=== PATIENT | female | born 1980 | race Caucasian/White ===

== ENCOUNTER → 2017-12-02 00:12 | Outpatient (CLI) | payer MEDICAID, SELFPAY ==
--- NOTE | 2017-12-02 09:41 | DI.REPORT_ITS ---
SYMPTOM/DIAGNOSIS: PELVIC AND BACK PAIN WITH MENSES, DYSMENORRHEA N94.6 PELVIC ULTRASOUND: Transabdominal and transvaginal examination was performed. The uterus measures 9.2 cm long x 3.8 cm AP x 4.7 cm transverse. The endometrial stripe is within normal limits at 0.7 cm. Small Nabothian cysts are present in the cervix. The right ovary measures 1.9 x 1.3 x 1.6 cm. There is normal blood flow. No evidence of torsion is seen. The left ovary measures 2.6 x 1.4 x 2.0 cm. There is a 1.8 cm simple cyst. There is normal blood flow to the left ovary. No evidence of torsion is present. No free pelvic fluid or hydronephrosis is identified. IMPRESSION: Normal pelvic ultrasound.
== END ==
PROVIDERS: PCP Family Medicine; Visit Provider Obstetrics & Gynecology Gynecology
DX: N94.6 Dysmenorrhea, unspecified (principal); R10.2 Pelvic and perineal pain; M54.5 Low back pain; N88.8 Other specified noninflammatory disorders of cervix uteri; N83.291 Other ovarian cyst, right side
CPT/HCPCS: 76830; 76856

== ENCOUNTER → 2017-12-07 01:00 | Outpatient (CLI) | payer MEDICAID, SELFPAY ==
--- NOTE | 2017-12-07 09:46 | DI.REPORT_ITS ---
SYMPTOM/DIAGNOSIS: DYSPHAGIA, R13.13 BARIUM SWALLOW: Fluoroscopy Time: 16 seconds Preliminary images of the chest and a soft tissue lateral of the neck are unremarkable. The patient swallowed barium without difficulty. The artur and hypopharynx appear intact. There is nothing to suggest a stricture or mass. The esophagus appears intact throughout. SUMMARY: Normal barium swallow.
[2017-12-07] MEDS: Barium Sulfate 60% W/V 355 ML BTL PO (09:51)
== END ==
PROVIDERS: PCP Family Medicine; Visit Provider Family Medicine
DX: R13.13 Dysphagia, pharyngeal phase (principal)
CPT/HCPCS: 74220; J3490

== ENCOUNTER 2018-01-10 10:45 | Outpatient (REF) | payer MEDICAID, SELFPAY ==
--- NOTE | 2018-01-10 10:00 | VUL_PTH ---
PATIENT: Katie Calvert LOC: [facility] U#:[id number] AGE/SX: 37/F ROOM: RE01/10/[address]: Jaclyn Potter : 1980 BED: DIS: 01/10/2018 SPEC #: [id number] RECD: 01/10/18 12:53 STATUS: JOAN REQ #: [id number] RICKY: 01/10/18 10:[address]: Jaclyn Potter DEPT: Surgical Specimen RECD BY: Pooja Esteban ENTERED: 01/10/18 12:54 SP TYPE: VUL OTHR DR: Timur Napoles MD Tissues: 1 - VULVA BIOPSY 2 - LABIA BX Procedures: GROSS AND MICRO LEVEL 4 Comments: [id number]
== END 2018-01-10 11:05 ==
LOC: LBN 10:45
PROVIDERS: PCP Family Medicine; Visit Provider Obstetrics & Gynecology Gynecology
DX: N90.89 Other specified noninflammatory disorders of vulva and perineum (principal)
CPT/HCPCS: 88305

== ENCOUNTER 2018-01-31 00:43 | Outpatient (CLI) | payer MEDICAID, SELFPAY ==
[2018-01-31] MEDS: Barium Sulfate 60% W/V 355 ML BTL PO (09:22)
[2018-01-31] MEDS: Barium Sulfate 700 MG TAB PO (09:23)
--- NOTE | 2018-01-31 09:23 | DI.RAD_ITS ---
SYMPTOM/DIAGNOSIS: DYSPHAGIA, R13.10, SMOKER, F17.200, GLOBUS SENSATION, F45.8 , HOARSENESS OF VOICE, R49.0 MODIFIED BARIUM SWALLOW: Fluoroscopy Time: 1 min 2 seconds Modified barium swallow was performed in conjunction with speech pathology. No gross swallowing abnormality identified. Esophageal mucosa and caliber appear within normal limits. 12 mm. barium tablet passed through the esophagus into stomach.
== END 2018-01-31 01:03 ==
PROVIDERS: PCP Family Medicine; Visit Provider Otolaryngology Otolaryngology/Facial Plastic Surgery
DX: R13.10 Dysphagia, unspecified (principal); F17.200 Nicotine dependence, unspecified, uncomplicated; F45.8 Other somatoform disorders; R49.0 Dysphonia
CPT/HCPCS: 74220; J3490

== ENCOUNTER 2018-01-31 02:35 | Outpatient (CLI) | payer MEDICAID, SELFPAY | END 2018-01-31 02:55 | PROVIDERS: PCP Family Medicine | DX: R13.12 Dysphagia, oropharyngeal phase (principal) | CPT/HCPCS: 92611 ==

== ENCOUNTER 2018-03-01 02:02 | Outpatient (CLI) | payer MEDICAID, SELFPAY ==
[2018-03-01 11:03] LABS: Anion Gap 9.9 mmol/L (3-11); BUN 13 mg/dL (7-18); CO2 26.1 mmol/L (21.0-32.0); CREATININE 0.88 mg/dL (0.55-1.02); Chloride 103 mmol/L (98-107); Glucose 96 mg/dL (70-100); Potassium 4.6 mmol/L (3.5-5.1); Sodium 139 mmol/L (136-145)
== END 2018-03-01 02:22 ==
PROVIDERS: PCP Family Medicine; Visit Provider Family Medicine
DX: E87.6 Hypokalemia (principal)
CPT/HCPCS: 36415; 80048

== ENCOUNTER 2018-10-07 16:34 | Emergency (ER) | payer MEDICAID, SELFPAY ==
[2018-10-07 16:51] VITALS: BP 146/84; PULSE 67; RESP 14; TEMP 37.2; O2SAT 95
--- NOTE | 2018-10-07 17:24 | W.ED.GENAD ---
Discharge Plan Disposition Patient Disposition: HOME Condition: Good Discharge Details Chief Complaint: Cellulitis Clinical Impression: Abscess of buttock Primary Care Provider: Timur Napoles ED Provider: Jesus Valdivia Home Meds and New Rx's Prescriptions: Continued acetaminophen [Tylenol Extra Strength] 500 mg tablet 500 mg PO Q6H PRNRF: 0 medroxyprogesterone [Depo-Provera] 150 mg/mL suspension 150 mg IM [id number] Qty: 1 RF: 3 mirtazapine 30 mg tablet 30 mg PO DAILY Qty: 30 RF: 2 albuterol sulfate [ProAir HFA] 8.5 GM HFA aerosol inhaler 2 puff Inhalation Q6H Qty: 1 RF: 5 albuterol sulfate 1.25 MG/3 ML solution for nebulization 1.25 mg Inhalation Q6H PRN Qty: 30 RF: 4 Compact Compressor Nebulizer 1 EACH kit 1 ea Miscellaneous Q6H PRN Qty: 1 RF: 0 metronidazole 45 GM gel Topical BID Qty: 45 RF: 4 Flovent Diskus 50 MCG blister with device 2 puff Inhalation BID Qty: 1 RF: 4 ketorolac 5 ML drops 1 drp Ophthalmic TID Qty: 5 RF: 2 clonazepam 0.5 mg tablet 0.5 mg PO As Directed Qty: 120 RF: 0 omeprazole 40 mg capsule,delayed release(DR/EC) 40 mg PO DAILY Qty: 90 RF: 3 cyclobenzaprine 10 mg tablet 10 mg PO HS PRN (Reason: muscle spasm) Qty: 30 RF: 1 Discharge Instructions Instructions: Abscess (ED) Additional Instructions: Return to the emergency department if you develop redness, fever, chills, worsening pain or discharge Discharge Data Discharge Date/Time-TO BE ENTERED AT DEPARTURE: 10/07/18 18:48 Discharge Physician: Jesus Valdivia Medical Decision Making Skin cleansed with Betadine, 2 cc 1% lidocaine injected to right buttocks lesion. 11 blade used to make small incision cruciate shaped. Small amount of purulent material expelled. Site irrigated and dressing applied. ED return instructions reviewed. Due to absence of overlying erythema or constitutional symptoms we will hold off on antibiotics. Small amount of material expelled however the site was quite small and I do not suspect there is additional purulence retained. HPI Patient presents for evaluation of abscess to right buttocks. This is been present for 3 days. She attempted warm soaks without success. She has history of similar abscesses requiring I&D. Denies fever, chills, lethargy. No additional complaints General Date/Time Provider Initiated Documentation: 10/07/18 17:24. Related Data Home Medications Medication Instructions Recorded Confirmed albuterol sulfate [ProAir HFA] 2 puff INHALATION Q6H #1 inhaler 12/13/14 10/07/18 Compact Compressor Nebulizer #1 kit 04/17/15 08/29/18 albuterol sulfate 1.25 mg INHALATION Q6H PRN #30 vial 04/17/15 10/07/18 metronidazole 0 TOPICAL BID #45 g 04/18/15 08/29/18 Flovent Diskus 2 puff INHALATION BID #1 disk 08/29/17 10/07/18 ketorolac 1 drp OPHTHALMIC TID #5 ml 12/20/17 08/29/18 mirtazapine 30 mg tablet 30 mg PO DAILY #30 tab 01/24/18 10/07/18 clonazepam 0.5 mg tablet 0.5 mg PO As Directed #120 tab-cap 01/26/18 10/07/18 omeprazole 40 mg capsule,delayed 40 mg PO DAILY #90 tab-cap 07/28/18 10/07/18 release acetaminophen 500 mg tablet 500 mg PO Q6H PRN 08/29/18 10/07/18 medroxyprogesterone 150 mg/mL 150 mg IM [id number] #1 ml 08/29/18 10/07/18 intramuscular suspension cyclobenzaprine 10 mg tablet 10 mg PO HS PRN #30 tab-cap 09/01/18 10/07/18 Previous Rx's Medication Instructions Recorded Flovent Diskus 2 puff INHALATION BID #1 disk 08/29/17 ketorolac 1 drp OPHTHALMIC TID #5 ml 12/20/17 mirtazapine 30 mg tablet 30 mg PO DAILY #30 tab 01/24/18 clonazepam 0.5 mg tablet 0.5 mg PO As Directed #120 tab-cap 01/26/18 omeprazole 40 mg capsule,delayed 40 mg PO DAILY #90 tab-cap 07/28/18 release medroxyprogesterone 150 mg/mL 150 mg IM [id number] #1 ml 08/29/18 intramuscular suspension cyclobenzaprine 10 mg tablet 10 mg PO HS PRN #30 tab-cap 09/01/18 Allergies Allergy/AdvReac Type Severity Reaction Status Date / Time shellfish derived Allergy Unknown Unverified 10/07/18 16:54 adhesive Allergy Unverified 10/07/18 16:54 divalproex sodium Allergy Skin Rash Unverified 10/07/18 16:54 [From Depakote] topiramate Allergy Unverified 10/07/18 16:54 varenicline tartrate Allergy Unverified 10/07/18 16:54 [From Chantix] venlafaxine AdvReac Intermediate Diarrhea Unverified 10/07/18 16:54 and increased headaches oxycodone AdvReac Mild nausea Unverified 10/07/18 16:54 General Stated Complaint: Cellulitis RED: 3 Review of Systems Constitutional Denies chills, Denies fatigue, Denies fever(s) and Denies lethargy Eyes Denies loss of vision ENT Denies nasal congestion and Denies sore throat Cardiovascular Denies chest pain and Denies dyspnea Respiratory Denies cough and Denies dyspnea Gastrointestinal Denies abdominal pain, Denies nausea and Denies vomiting Musculoskeletal Denies back pain, Denies muscle weakness and Denies numbness Integumentary/Breasts Denies rash Neurologic Denies focal weakness, Denies loss of vision and Denies numbness Endocrine Denies fatigue Hematologic/Lymphatic Denies easy bruising PFSH Medical History Anxiety Bipolar disorder Disorder of stomach Fibromyalgia Genital herpes Headache Rosacea Tobacco use Surgical History Cervical Conization/LEEP Cholecystectomy Colonoscopy - MAC (01/12/13) EGD - MAC (01/12/13) Ligation of fallopian tube Family History Mother Diabetes Essential hypertension Depression Heart disease Asthma Grandmother Neoplasm aunt Diabetes Heart disease uncle Diabetes Brother Neoplasm Sister No problems noted. Sister DJD (degenerative joint disease) Asthma Sister No problems noted. Sister No problems noted. Brother Neoplasm Grandfather Heart disease Grandfather Leukemia Grandmother Diabetes Neoplasm Son DJD (degenerative joint disease) Daughter Depression Asthma FAMILY HISTORY Dmfdo-[id number] deficiency Liver disease Diabetes Heart disease Neoplasm DJD (degenerative joint disease) Uterus problem Asthma Father Epilepsy Social History Smoking/Tobacco Use Status: Current every day Alcohol Intake: never Drug use: Occasionally Substance use type: marijuana and other Details: anxiety and insomnia Household members: spouse and other Details: spouse Brandan Number of Children: 2 Pets and animals: Yes (3 dogs) What is your relationship status?: Panel score (0-1 are the most socially isolated patients): 1 What type of physical activity do you participate in: walking Duration: 15-30 minutes/day Frequency: 3-4 times per week Seatbelt use: always Do you feel safe at home: Yes Do you feel safe in your relationship?: Yes Female Reproductive History Menstrual control method: permanent sterilization History History 5 Para Hx # Term Pregnancies 2 Multiple births Hx # Pregnancies Ectopic pregnancies AB induced Hx Number of Living Children AB spontaneous Exam Const General: cooperative and comfortable HENMT Mouth: moist mucous membranes Eyes Conjunctivae: conjunctivae normal Sclera: sclerae normal Neck Neck: trachea midline Resp Effort & Inspection: normal respiratory effort and able to speak in complete sentences Cardio Rhythm: regular rhythm Skin General skin exam: no rashes or lesions noted Other: 3 cm area of tenderness, mildly fluctuant. No overlying erythema. The site is localized to right buttocks Neuro General: alert, awake, tone normal and moves all extremities Psych Appearance: grossly normal Mental Status: mental status grossly normal Course Vital Signs Temperature 37.2 C 10/07/18 16:51 Pulse 67 10/07/18 16:51 Respiratory Rate 14 10/07/18 16:51 Blood Pressure 146/84 H 10/07/18 16:51 Pulse Oximetry 95 10/07/18 16:51 Temperature 37.2 C 10/07/18 16:51 Temperature Source Temporal Artery Scan 10/07/18 16:51 Pulse 67 10/07/18 16:51 Respiratory Rate 14 10/07/18 16:51 Respiratory Effort Non-Labored 10/07/18 16:53 Blood Pressure 146/84 H 10/07/18 16:51 Blood Pressure Position Sitting 10/07/18 16:51 Pulse Oximetry 95 10/07/18 16:51 Oxygen Delivery Method Room Air 10/07/18 16:51 Oxygen Flow Rate 0 10/07/18 16:51 Pain Level 6 10/07/18 16:51
--- NOTE | 2018-10-07 23:32 | ED.GENADUL_ITS ---
Discharge Plan Disposition Patient Disposition: HOME Condition: Good Discharge Details Chief Complaint: Cellulitis Clinical Impression: Abscess of buttock Primary Care Provider: Timur Napoles ED Provider: Jesus Valdivia Home Meds and New Rx's Prescriptions: Continued acetaminophen [Tylenol Extra Strength] 500 mg tablet 500 mg PO Q6H PRNRF: 0 medroxyprogesterone [Depo-Provera] 150 mg/mL suspension 150 mg IM [id number] Qty: 1 RF: 3 mirtazapine 30 mg tablet 30 mg PO DAILY Qty: 30 RF: 2 albuterol sulfate [ProAir HFA] 8.5 GM HFA aerosol inhaler 2 puff Inhalation Q6H Qty: 1 RF: 5 albuterol sulfate 1.25 MG/3 ML solution for nebulization 1.25 mg Inhalation Q6H PRN Qty: 30 RF: 4 Compact Compressor Nebulizer 1 EACH kit 1 ea Miscellaneous Q6H PRN Qty: 1 RF: 0 metronidazole 45 GM gel Topical BID Qty: 45 RF: 4 Flovent Diskus 50 MCG blister with device 2 puff Inhalation BID Qty: 1 RF: 4 ketorolac 5 ML drops 1 drp Ophthalmic TID Qty: 5 RF: 2 clonazepam 0.5 mg tablet 0.5 mg PO As Directed Qty: 120 RF: 0 omeprazole 40 mg capsule,delayed release(DR/EC) 40 mg PO DAILY Qty: 90 RF: 3 cyclobenzaprine 10 mg tablet 10 mg PO HS PRN (Reason: muscle spasm) Qty: 30 RF: 1 Discharge Instructions Instructions: Abscess (ED) Additional Instructions: Return to the emergency department if you develop redness, fever, chills, wor sening pain or discharge Discharge Data Discharge Date/Time-TO BE ENTERED AT DEPARTURE: 10/07/18 18:48 Discharge Physician: Jesus Valdivia Medical Decision Making Skin cleansed with Betadine, 2 cc 1% lidocaine injected to right buttocks lesion. 11 blade used to make small incision cruciate shaped. Small amount of purulent material expelled. Site irrigated and dressing applied. ED return instructions reviewed. Due to absence of overlying erythema or constitutional symptoms we will hold off on antibiotics. Small amount of material expelled however the site was quite small and I do not suspect there is additional purulence retained. HPI Patient presents for evaluation of abscess to right buttocks. This is been present for 3 days. She attempted warm soaks without success. She has history of similar abscesses requiring I&D. Denies fever, chills, lethargy. No additional complaints General Date/Time Provider Initiated Documentation: 10/07/18 17:24 . Related Data Home Medications Medication Instructions Recorded Confirmed albuterol sulfate [ProAir HFA] 2 puff INHALATION Q6H #1 inhaler 12/13/14 10/07/18 Compact Compressor Nebulizer #1 kit 04/17/15 08/29/18 albuterol sulfate 1.25 mg INHALATION Q6H PRN #30 vial 04/17/15 10/07/18 metronidazole 0 TOPICAL BID #45 g 04/18/15 08/29/18 Flovent Diskus 2 puff INHALATION BID #1 disk 08/29/17 10/07/18 ketorolac 1 drp OPHTHALMIC TID #5 ml 12/20/17 08/29/18 mirtazapine 30 mg tablet 30 mg PO DAILY #30 tab 01/24/18 10/07/18 clonazepam 0.5 mg tablet 0.5 mg PO As Directed #120 tab-cap 01/26/18 10/07/18 omeprazole 40 mg capsule,delayed 40 mg PO DAILY #90 tab-cap 07/28/18 10/07/18 release acetaminophen 500 mg tablet 500 mg PO Q6H PRN 08/29/18 10/07/18 medroxyprogesterone 150 mg/mL 150 mg IM [id number] #1 ml 08/29/18 10/07/18 intramuscular suspension cyclobenzaprine 10 mg tablet 10 mg PO HS PRN #30 tab-cap 09/01/18 10/07/18 Previous Rx's Medication Instructions Recorded Flovent Diskus 2 puff INHALATION BID #1 disk 08/29/17 ketorolac 1 drp OPHTHALMIC TID #5 ml 12/20/17 mirtazapine 30 mg tablet 30 mg PO DAILY #30 tab 01/24/18 clonazepam 0.5 mg tablet 0.5 mg PO As Directed #120 tab-cap 01/26/18 omeprazole 40 mg capsule,delayed 40 mg PO DAILY #90 tab-cap 07/28/18 release medroxyprogesterone 150 mg/mL 150 mg IM [id number] #1 ml 08/29/18 intramuscular suspension cyclobenzaprine 10 mg tablet 10 mg PO HS PRN #30 tab-cap 09/01/18 Allergies Allergy/AdvReac Type Severity Reaction Status Date / Time shellfish derived Allergy Unknown Unverified 10/07/18 16:54 adhesive Allergy Unverified 10/07/18 16:54 divalproex sodium Allergy Skin Rash Unverified 10/07/18 16:54 [From Depakote] topiramate Allergy Unverified 10/07/18 16:54 varenicline tartrate Allergy Unverified 10/07/18 16:54 [From Chantix] venlafaxine AdvReac Intermediate Diarrhea Unverified 10/07/18 16:54 and increased headaches oxycodone AdvReac Mild nausea Unverified 10/07/18 16:54 General Stated Complaint: Cellulitis RED: 3 Review of Systems Constitutional Denies chills, Denies fatigue, Denies fever(s) and Denies lethargy Eyes Denies loss of vision ENT Denies nasal congestion and Denies sore throat Cardiovascular Denies chest pain and Denies dyspnea Respiratory Denies cough and Denies dyspnea Gastrointestinal Denies abdominal pain, Denies nausea and Denies vomiting Musculoskeletal Denies back pain, Denies muscle weakness and Denies numbness Integumentary/Breasts Denies rash Neurologic Denies focal weakness, Denies loss of vision and Denies numbness Endocrine Denies fatigue Hematologic/Lymphatic Denies easy bruising [facility] Medical History Anxiety Bipolar disorder Disorder of stomach Fibromyalgia Genital herpes Headache Rosacea Tobacco use Surgical History Cervical Conization/LEEP Cholecystectomy Colonoscopy - MAC (01/12/13) EGD - MAC (01/12/13) Ligation of fallopian tube Family History Mother Diabetes Essential hypertension Depression Heart disease Asthma Grandmother Neoplasm aunt Diabetes Heart disease uncle Diabetes Brother Neoplasm Sister No problems noted. Sister DJD (degenerative joint disease) Asthma Sister No problems noted. Sister No problems noted. Brother Neoplasm Grandfather Heart disease Grandfather Leukemia Grandmother Diabetes Neoplasm Son DJD (degenerative joint disease) Daughter Depression Asthma FAMILY HISTORY Cizib-8-abykhhkwffp deficiency Liver disease Diabetes Heart disease Neoplasm DJD (degenerative joint disease) Uterus problem Asthma Father Epilepsy Social History Smoking/Tobacco Use Status: Current every day Alcohol Intake: never Drug use: Occasionally Substance use type: marijuana and other Details: anxiety and insomnia Household members: spouse and other Details: spouse Brandan Number of Children: 2 Pets and animals: Yes (3 dogs) What is your relationship status?: Panel score (0-1 are the most socially isolated patients): 1 What type of physical activity do you participate in: walking Duration: 15-30 minutes/day Frequency: 3-4 times per week Seatbelt use: always Do you feel safe at home: Yes Do you feel safe in your relationship?: Yes Female Reproductive History Menstrual control method: permanent sterilization History History 5 Para Hx # Term Pregnancies 2 Multiple births Hx # Pregnancies Ectopic pregnancies AB induced Hx Number of Living Children AB spontaneous Exam Const General: cooperative and comfortable HENMT Mouth: moist mucous membranes Eyes Conjunctivae: conjunctivae normal Sclera: sclerae normal Neck Neck: trachea midline Resp Effort & Inspection: normal respiratory effort and able to speak in complete sentences Cardio Rhythm: regular rhythm Skin General skin exam: no rashes or lesions noted Other: 3 cm area of tenderness, mildly fluctuant. No overlying erythema. The site is localized to right buttocks Neuro General: alert, awake, tone normal and moves all extremities Psych Appearance: grossly normal Mental Status: mental status grossly normal Course Vital Signs Temperature 37.2 C 10/07/18 16:51 Pulse 67 10/07/18 16:51 Respiratory Rate 14 10/07/18 16:51 Blood Pressure 146/84 H 10/07/18 16:51 Pulse Oximetry 95 10/07/18 16:51 Temperature 37.2 C 10/07/18 16:51 Temperature Source Temporal Artery Scan 10/07/18 16:51 Pulse 67 10/07/18 16:51 Respiratory Rate 14 10/07/18 16:51 Respiratory Effort Non-Labored 10/07/18 16:53 Blood Pressure 146/84 H 10/07/18 16:51 Blood Pressure Position Sitting 10/07/18 16:51 Pulse Oximetry 95 10/07/18 16:51 Oxygen Delivery Method Room Air 10/07/18 16:51 Oxygen Flow Rate 0 10/07/18 16:51 Pain Level 6 10/07/18 16:51
== END 2018-10-07 18:48 | disposition home or self-care (01) ==
PROVIDERS: Emergency Provider Physician Assistant Medical; PCP Family Medicine
DX: L02.31 Cutaneous abscess of buttock (principal)
CPT/HCPCS: 10060

== ENCOUNTER 2018-12-13 09:12 | Emergency (ER) | payer MEDICAID, SELFPAY ==
--- NOTE | 2018-12-13 09:14 | ED.GENADUL_ITS ---
Discharge Plan Disposition Patient Disposition: HOME Condition: Improving Discharge Details Chief Complaint: Orthopedic Clinical Impression: Leg pain, right, Abscess of groin Primary Care Provider: Timur Napoles ED Provider: Unique Berry Home Meds and New Rx's Prescriptions: Continued acetaminophen [Tylenol Extra Strength] 500 mg tablet 500 mg PO Q6H PRNRF: 0 medroxyprogesterone [Depo-Provera] 150 mg/mL suspension 150 mg IM [id number] Qty: 1 RF: 3 mirtazapine 30 mg tablet 30 mg PO DAILY Qty: 30 RF: 2 albuterol sulfate [ProAir HFA] 8.5 GM HFA aerosol inhaler 2 puff Inhalation Q6H Qty: 1 RF: 5 albuterol sulfate 1.25 MG/3 ML solution for nebulization 1.25 mg Inhalation Q6H PRN Qty: 30 RF: 4 (DME) Compact Compressor Nebulizer 1 EACH kit 1 ea Miscellaneous Q6H PRN Qty: 1 RF: 0 metronidazole 45 GM gel 0 Topical BID Qty: 45 RF: 4 Flovent Diskus 50 MCG blister with device 2 puff Inhalation BID Qty: 1 RF: 4 ketorolac 5 ML drops 1 drp Ophthalmic TID Qty: 5 RF: 2 clonazepam 0.5 mg tablet 0.5 mg PO As Directed Qty: 120 RF: 0 omeprazole 40 mg capsule,delayed release(DR/EC) 40 mg PO DAILY Qty: 90 RF: 3 cyclobenzaprine 10 mg tablet 10 mg PO HS PRN (Reason: muscle spasm) Qty: 30 RF: 1 Discharge Instructions Instructions: Abscess (ED), Leg Pain (ED) Additional Instructions: Encourage hydration. Stop smoking. Keep area of drainage clean, dry, covered. Tylenol and/or Motrin as needed for discomfort. Elevate your right leg. Use the antimicrobial soap as discussed. continue to monitor area of abscess drainage, if it develop redness/warmth, fevers/chills or other new/worsening symptoms please seek care ugently once again. You have a follow up appointment with Dr. Gray at 1PM on December 20 Referrals: Timur Napoles MD [Primary Care Provider] - 12/20/18 1:00 pm Discharge Data Discharge Date/Time-TO BE ENTERED AT DEPARTURE: 12/13/18 12:31 Medical Decision Making Patient presents today with multitude of complaints. Primary complaint today is abscess on the left side of her groin. Also concerned with persistent right lo wer extremity pain and concern for an old wound between the fourth and fifth digits of the right foot. Patient has history of depression, fibromyalgia, insomnia, GERD, Crohn's, asthma, is an active smoker, dysphasia. On exam, patient is resting comfortably. She is ambulating with antalgic gait, favoring the right side. She has right calf pain, no palpable cord, full ROM. Patient has pain generalized with palpation anywhere, she attributes to fibromyalgia. No erythema or warmth. The area of puncture from her foot appears to have healed well with no erythema, warmth, drainage. There is a small area of healed over skin that appears consistent with her wound from a few weeks ago betwen the 4&5 digits, right foot 2mm in diameter. Patient is a smoker, is on depo shot, concerned for possible DVT given risk factors. Will obtain DVT US. Ultrasound reviewed by radiologist with no evidence of DVT. Discussed these findings with the patient. Advised likely musculoskeletal. She did not have any known trauma. Advised also could be associated with her fibromyalgia. Plan for drainage of her small abscess, at this point, no evidence of cellulitis. Evaluated the 1cm area with US, pocket of fluid is noted, does not appear to track. Appears isolated to palpable area in the left groin please see procedure note. Patient tolerated drainage of the abscess well. We discussed care associated with this. I also encouraged to begin using antimicrobial soap. She does not have a bathtub. Encourage close follow-up with primary care. Advised to discuss her chronic pain further with them at that time. We discussed lifestyle modifications that are likely leading to a multitude of her complaints. I encouraged that she stops smoking, makes dietary changes and begins exercising. We discussed this at length. We did discuss the risks associated with this. We discussed care associated with the drained abscess. All of her questions and concerns were addressed and she is in agreement with this plan. HPI General Mode of arrival: ambulatory . Date/Time Provider Initiated Documentation: 12/13/18 09:14 . Limitations to Documentation: no limitations . Information obtained by: patient, family (accompanied by significant other) and RN notes reviewed . HPI Narrative: Patient is a 38-year-old female presented with multitude of complaints. With concern today is a boil on the left groin. She is also here endorsing 1 month of right leg pain as well as pain between the fourth and fifth toe on the right foot. She reports she stepped on something approximately 1 month ago and since then has been having some discomfort in this area. Patient denies history of diabetes, states she has been told she is prediabetic. 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 Patient does have history of depression, fibromyalgia, insomnia, GERD, Crohn's, asthma, cervicalgia, globus sensation, dysphagia, dysmenorrhea, rosacea. Patient has not been to see her primary care regarding this 1 month of leg discomfort. States that the boil began a few days ago and has progressed with size. She denies fevers or chills. Denies any recent travel. She was seen here 2 months at which time an abscess on her buttock was drained, patient was treated with abx for surrounding cellulitis Related Data Home Medications Medication Instructions Recorded Confirmed albuterol sulfate [ProAir HFA] 2 puff INHALATION Q6H #1 inhaler 12/13/14 11/21/18 Compact Compressor Nebulizer #1 kit 04/17/15 08/29/18 albuterol sulfate 1.25 mg INHALATION Q6H PRN #30 vial 04/17/15 11/21/18 metronidazole 0 TOPICAL BID #45 g 04/18/15 11/21/18 Flovent Diskus 2 puff INHALATION BID #1 disk 08/29/17 11/21/18 ketorolac 1 drp OPHTHALMIC TID #5 ml 12/20/17 11/21/18 mirtazapine 30 mg tablet 30 mg PO DAILY #30 tab 01/24/18 10/07/18 clonazepam 0.5 mg tablet 0.5 mg PO As Directed #120 tab-cap 01/26/18 11/21/18 omeprazole 40 mg capsule,delayed 40 mg PO DAILY #90 tab-cap 07/28/18 11/21/18 release acetaminophen 500 mg tablet 500 mg PO Q6H PRN 08/29/18 11/21/18 medroxyprogesterone 150 mg/mL 150 mg IM [id number] #1 ml 08/29/18 10/07/18 intramuscular suspension cyclobenzaprine 10 mg tablet 10 mg PO HS PRN #30 tab-cap 12/07/18 Previous Rx's Medication Instructions Recorded Flovent Diskus 2 puff INHALATION BID #1 disk 08/29/17 ketorolac 1 drp OPHTHALMIC TID #5 ml 12/20/17 mirtazapine 30 mg tablet 30 mg PO DAILY #30 tab 01/24/18 clonazepam 0.5 mg tablet 0.5 mg PO As Directed #120 tab-cap 01/26/18 omeprazole 40 mg capsule,delayed 40 mg PO DAILY #90 tab-cap 07/28/18 release medroxyprogesterone 150 mg/mL 150 mg IM [id number] #1 ml 08/29/18 intramuscular suspension cyclobenzaprine 10 mg tablet 10 mg PO HS PRN #30 tab-cap 12/07/18 Allergies Allergy/AdvReac Type Severity Reaction Status Date / Time shellfish derived Allergy Unknown Unverified 11/21/18 14:08 adhesive Allergy Unverified 11/21/18 14:08 divalproex sodium Allergy Skin Rash Unverified 11/21/18 14:08 [From Depakote] topiramate Allergy Unverified 11/21/18 14:08 varenicline tartrate Allergy Unverified 11/21/18 14:08 [From Chantix] venlafaxine AdvReac Intermediate Diarrhea Unverified 11/21/18 14:08 and increased headaches oxycodone AdvReac Mild nausea Unverified 11/21/18 14:08 General RED: 3 Review of Systems Constitutional Reports as per HPI, Denies chills, Reports fatigue, Denies fever(s), Denies headache(s) and Denies weakness ENT Denies headache(s) Cardiovascular Reports as per HPI Respiratory Reports as per HPI, Reports cough (reports this is chronic, associates with smoking), Denies pain on inspiration and Denies pain with cough Musculoskeletal Reports as per HPI, Denies back pain, Reports myalgias, Denies arthralgias, Reports radiating pain into limb (from knee inferiorly into RLE) and Denies tingling Integumentary/Breasts Reports as per HPI, Reports new lesions (has abscess to right groin, first noted 1 week ago) and Reports wounds (reports puncture wound to right foot one month ago) Neurologic Reports as per HPI, Denies headache(s), Denies tingling, Denies paresthesias and Denies weakness Endocrine Reports fatigue PFSH Medical History Anxiety Bipolar disorder Disorder of stomach Fibromyalgia Genital herpes Headache Rosacea Tobacco use Surgical History Cervical Conization/LEEP Cholecystectomy Colonoscopy - MAC (01/12/13) EGD - MAC (01/12/13) Ligation of fallopian tube Family History Mother Diabetes Essential hypertension Depression Heart disease Asthma Grandmother Neoplasm aunt Diabetes Heart disease uncle Diabetes Brother Neoplasm Sister No problems noted. Sister DJD (degenerative joint disease) Asthma Sister No problems noted. Sister No problems noted. Brother Neoplasm Grandfather Heart disease Grandfather Leukemia Grandmother Diabetes Neoplasm Son DJD (degenerative joint disease) Daughter Depression Asthma FAMILY HISTORY [id number] deficiency Liver disease Diabetes Heart disease Neoplasm DJD (degenerative joint disease) Uterus problem Asthma Father Epilepsy Social History Smoking/Tobacco Use Status: Current every day Tobacco Type: cigarettes Alcohol Intake: never Drug use: Daily Substance use type: marijuana and other Details: anxiety and insomnia Household members: spouse and other Details: spouse Brandan Number of Children: 2 Pets and animals: Yes (3 dogs) What is your relationship status?: Panel score (0-1 are the most socially isolated patients): 1 What type of physical activity do you participate in: walking Duration: 15-30 minutes/day Frequency: 3-4 times per week Seatbelt use: always Do you feel safe at home: Yes Do you feel safe in your relationship?: Yes Female Reproductive History Menstrual control method: permanent sterilization History History 5 Para Hx # Term Pregnancies 2 Multiple births Hx # Pregnancies Ectopic pregnancies AB induced Hx Number of Living Children AB spontaneous Exam Const General: cooperative, comfortable, no acute distress, well developed and well groomed Nutritional Appearance: well nourished and overweight Orientation: alert and awake Resp Effort & Inspection: normal respiratory effort, able to speak in complete sentences and no respiratory distress Auscultation: clear to auscultation bilaterally Cardio Rate: regular rate Rhythm: regular rhythm Heart Sounds: S1 normal and S2 normal Skin General skin exam: erythema (mild erythema directly over area of fluctuance) and fluctuance (1cm circular area that is firm, consistent with abscess, to left groin) Neuro General: alert and awake Cognition: normal cognition Speech: speech normal Gait: antalgic Motor: muscle tone normal throughout Sensory Exam: no sensory deficits noted Extrem General: full ROM, normal capillary refill, no joint enlargement, no pedal edema, abnormal gait (antaglic), calf tenderness on the right, no edema and no pedal edema Right lower extremity: knee Details: normal to inspection and normal ROM; no swelling and lower leg Details: inspection abnormal (posterior calf pain as above); abnormal to inspection (2+ distal pulses. Normal capillary refill. Calf tenderness with palpation) Psych Appearance: grossly normal and well kempt Mental Status: mental status grossly normal Speech and Movement: speech and movement normal Procedures Abscess I/D Site: Other (groin) Side (if applicable): Left Sedation/analgesia: None Local Anesthetic: Lidocaine 1% Amount of anesthesia used (mL): 1 Technique: Incised with #11 Blade Amount of fluid expressed (mL): 2 Irrigation: Yes Packing used?: None Complications: Other (none)
[2018-12-13 09:17] VITALS: BP 131/75; PULSE 77; RESP 16; TEMP 36.7; O2SAT 100
--- NOTE | 2018-12-13 09:44 | DI.US_ITS ---
SYMPTOMS/DIAGNOSIS: RT CALF PAIN, WORSE WITH AMBULATION, ON DEPO, SMOKER RIGHT LOWER EXTREMITY ULTRASOUND: The femoral and popliteal veins and visualized calf veins are freely compressible. The doppler venous wave form augments normally. No thrombus is visible. There is no evidence of superficial venous thrombosis. No fields's cyst or hematoma is seen. IMPRESSION: Negative right lower extremity ultrasound. No evidence of DVT.
== END 2018-12-13 12:31 | disposition home or self-care (01) ==
PROVIDERS: Emergency Provider Physician Assistant; PCP Family Medicine
DX: M79.661 Pain in right lower leg (principal); L02.214 Cutaneous abscess of groin; S91.331A Puncture wound without foreign body, right foot, initial encounter; X58.XXXA Exposure to other specified factors, initial encounter; F17.210 Nicotine dependence, cigarettes, uncomplicated; M79.7 Fibromyalgia; Z79.3 Long term (current) use of hormonal contraceptives
CPT/HCPCS: 10060; 99284; 93971; 99283

== ENCOUNTER 2019-02-20 14:27 | Outpatient (CLI) | payer MEDICAID, SELFPAY ==
--- NOTE | 2019-02-20 13:45 | DI.RAD_ITS ---
EXAM: XR CERVICAL SPINE COMP 4-5V INDICATION: chronic neck pain, cervicalgia, M54.2. COMPARISON: No exams were available for comparison TECHNIQUE: 2D digital imaging was performed. FINDINGS: Disc spaces are well maintained. The vertebral bodies are normal in height. There are no significa nt facet joint degenerative changes. The alignment appears normal. There is no prevertebral soft ti ssue swelling. No neural foraminal narrowing is seen. IMPRESSION: Negative cervical spine.
== END 2019-02-20 14:47 ==
PROVIDERS: PCP Family Medicine; Visit Provider Family Medicine
DX: M54.2 Cervicalgia (principal)
CPT/HCPCS: 72050

== ENCOUNTER 2019-03-15 14:25 | Emergency (ER) | payer MEDICAID, SELFPAY ==
[2019-03-15 14:29] VITALS: BP 160/114; PULSE 99; RESP 18; TEMP 36.6; O2SAT 96
--- NOTE | 2019-03-15 14:53 | DI.MRI_ITS ---
EXAM: MR CERVICAL SPINE WO CLINICAL HISTORY: pain, extremity tingling. TECHNIQUE: Multiplanar multisequence MRI was performed. COMPARISON: No exams were available for comparison FINDINGS: There is normal signal in the spinal cord. No evidence of tonsillar ectopia is seen. Endplate signal changes are seen at C5-C6. Marrow signal is otherwise within normal limits. There is straightening of the normal cervical lordosis. C7-T1 shows no focal disc herniation, central spinal canal or neural foraminal stenosis. At C6-C7, there is a small central disc herniation. No central spinal canal or neural foraminal sten osis is present. At C5-C6, there is a posterior disc protrusion causing mild compression on the anterior thecal sac. There is mild narrowing of the central spinal canal. No significant neural foraminal stenosis is pre sent. At C4-C5, there is a posterior disc protrusion causing mild narrowing of the central spinal canal. N o neural foraminal stenosis is seen. At C3-C4, there is a small central disc herniation. No significant central spinal canal or neural fo raminal stenosis is present. C2-C3 shows no focal disc herniations, central spinal canal or neural foraminal stenosis. IMPRESSION: 1. No acute abnormality. 2. No abnormal signal in the spinal cord. No significant cord compression. 3. Multilevel degenerative changes in the cervical spine.
--- NOTE | 2019-03-15 15:07 | ED.GENADUL_ITS ---
Discharge Plan Disposition Patient Disposition: HOME Condition: Good Discharge Details Chief Complaint: Nk/Back Pain Clinical Impression: Chronic neck pain, Hand tingling Primary Care Provider: Timur Napoles ED Provider: Zac Ann Home Meds and New Rx's Prescriptions: New prednisone 50 MG tablet 50 mg PO DAILY Qty: 5 RF: 0 No Action acetaminophen [Tylenol Extra Strength] 500 mg tablet 500 mg PO Q6H PRNRF: 0 hydroxyzine HCl 50 mg tablet 50 mg PO BID RF: 0 ondansetron HCl 4 mg tablet 4 mg PO QID PRN (Reason: nausea and vomiting) Qty: 20 RF: 1 clonazepam 0.5 mg tablet 0.5 mg PO As Directed Qty: 120 RF: 0 albuterol sulfate [ProAir HFA] 8.5 GM HFA aerosol inhaler 2 puff Inhalation Q6H Qty: 1 RF: 5 albuterol sulfate 1.25 MG/3 ML solution for nebulization 1.25 mg Inhalation Q6H PRN Qty: 30 RF: 4 (DME) Compact Compressor Nebulizer 1 EACH kit 1 ea Miscellaneous Q6H PRN Qty: 1 RF: 0 metronidazole 45 GM gel 0 Topical BID Qty: 45 RF: 4 Flovent Diskus 50 MCG blister with device 2 puff Inhalation BID Qty: 1 RF: 4 ketorolac 5 ML drops 1 drp Ophthalmic TID Qty: 5 RF: 2 omeprazole 40 mg capsule,delayed release(DR/EC) 40 mg PO DAILY Qty: 90 RF: 3 cyclobenzaprine 10 mg tablet 10 mg PO HS PRN (Reason: muscle spasm) Qty: 30 RF: 3 Discharge Instructions Instructions: Cervical Radiculopathy (ED) Additional Instructions: At this time your MRI shows no evidence of acute life-threatening nerve compromise, however I do suspect that you have mild thoracic outlet syndrome. Additionally you have a very tiny amount of disc bulge which could be a partial cause of your symptoms. Please do not twist her flexion neck significantly in any direction. Gently massage it he is a heating and ice as directed. We will schedule a neurology follow-up for you. This will take some time, usually greater than 1 month for this follow-up. If you notice any worsening of your symptoms, or any new symptoms such as vomiting, diarrhea, fever, chills, shortness of breath, chest pain, numbness, weakness, or fainting , please return immediately to the emergency department for reevaluation. Please follow up with your primary care provider as soon as possible for reassessment and reevaluation. As always, it was a pleasure participating in your medical care today. Referrals: Timur Napoles MD [Primary Care Provider] - Discharge Data Discharge Date/Time-TO BE ENTERED AT DEPARTURE: 03/15/19 17:10 Medical Decision Making <CHINO Up - Last Filed: 03/16/19 17:42> Patient presents for neck pain which is worse in the last 2 days, similar in character and location of previously experienced pain over the last 2 years. Patient has had x-rays of neck which were reportedly normal. She has had outpatient physical therapy, received cortisone injections in her spine. Patient has used oral steroids by mouth before with mild relief. Patient reports intermittent radicular symptoms into the bilateral upper extremities, specifically she reports tingling and numbness of the right fourth and fifth digit. She reports weakness of bilateral upper extremities intermittently, none at this time. Patient has reported easy fatigue of her lower extremities but no focal tingling, numbness. On exam patient has normal strength bilaterally and intact reflexes of the upper extremities. Patient has no specific midline tenderness but does have paraspinal tenderness and pain with range of motion. Patient was due to see her primary care doctor in follow-up for persistence of neck pain today, she was unable to see her PCP as her appointment was canceled. Patient does take daily muscle relaxants. Given the patient has had injections, followed up with physical therapy, complaints of paresthesias bilaterally, persistence of neck pain I do feel advanced imaging is reasonable. Patient is requesting MRI. MRI of head and neck ordered given extremity complaints as well as persistence of neck pain. Patient signed out pending MRI results <Zac Ann DO - Last Filed: 03/15/19 17:04> Case was signed out to me pending MRI results by my colleague, please refer to her initial assessment and plan and history for previous documentation. MRI of the brain and neck is returned, no evidence of acute pathology. There are some mild chronic findings of mild posterior disc protrusion at C4-C5 and see 5 C6, with minimal indentation on the anterior thecal sac, minimal foraminal narrowing, but no evidence of cord compression. No evidence of meningitis clinically. Repeat exam demonstrates no evidence of significant focal neurologic deficit. Signs and symptoms at this time are more clinically consistent with thoracic outlet syndrome. We will give a steroid Dosepak and recommend continued NSAIDs heat and ice. We will refer to neurology for further evaluation. At this time the patient signs and symptoms are clinically inconsistent with aortic dissection, or immediate acute life-threatening neurovascular compromise. I have extensively reviewed the treatment plan and discharge instructions with the patient. I have addressed all patient concerns at this time. The patient was made aware of what symptoms to monitor for that would warrant a return to the emergency department. Discussed the plan with the patient, they demonstrate verbal understanding and agreement with our assessment and plan at this time. FINDINGS: Brain: No intracranial hemorrhage or extra-axial fluid collection. No evidence of mass effect or midline shift. No white matter abnormalities. No restricted diffusion to suggest acute infarct. Ventricles: Ventricles, cisterns, and sulci are normal. Bones/joints: Unremarkable. Soft tissues: Unremarkable. Sinuses: Unremarkable. Mastoid air cells: No mastoid effusion. Orbits: Unremarkable. IMPRESSION: No acute intracranial pathology. Thank you for allowing us to participate in the care of your patient. Dictated and Authenticated by: Demian Goncalves MD 03/15/2019 4:11 PM Eastern Time ([place] & [place]) FINDINGS: Fatty marrow signal along the superior endplate of C6. Cervical vertebral body heights are intact. Straightening of the cervical lordosis. The dens is intact. No evidence of acute fracture. No cord compression, expansion, or abnormal cord signal. Visualized structures of the posterior fossa are unremarkable. Soft tissues are unremarkable. C2-C3: No significant canal or foraminal narrowing. C3-C4: No significant canal or foraminal narrowing. C4-C5: Posterior disc protrusion causes mild canal narrowing with indentation of the anterior thecal sac. No significant foraminal narrowing. C5-C6: Posterior disc protrusion causes mild canal narrowing with indentation of the anterior thecal sac. Mild left foraminal narrowing. C6-C7: No significant canal or foraminal narrowing. C7-T1: No significant canal or foraminal narrowing. IMPRESSION: 1. No acute findings in the cervical spine. 2. Other chronic findings, as above. Thank you for allowing us to participate in the care of your patient. Dictated and Authenticated by: Demian Goncalves MD 03/15/2019 4:40 PM Eastern Time ([place] & [place]) HPI <CHINO Up - Last Filed: 03/16/19 17:42> General Date/Time Provider Initiated Documentation: 03/15/19 14:35 . HPI Narrative: This is a 38-year-old patient who reports 2 years of chronic neck pain. Patient reports worse neck pain in the last 2 days. Patient reports radiating symptoms into the arms bilaterally. Patient reports tingling of the right arm fourth and fifth digit intermittently. Patient reports she notices intermittent weakness of her hands. Patient reports she has received cortisone injections in her neck historically. Patient reports she has received steroids by mouth which are somewhat helpful. Patient has had x-ray evaluation of the neck which was reportedly normal. Patient reports she was due to see her primary care doctor today had a scheduled appointment, or after her appointment and office reported that her appointment had been canceled. Patient presents the emergency room today for reevaluation as her pain has been increasing despite use of muscle relaxants at home. Patient does report a history of fibromyalgia. Patient is concerned given the persistence of her symptoms, lack of improvement with home management. Patient reports she has tried physical therapy in the past without relief of pain. Patient is primarily concerned at this time with complaints of intermittent numbness and tingling in her arms and associated weakness. Patient denies symptoms at present. Patient does report lower extremity symptoms and reports easy fatigue of her lower extremities. Patient denies difficulty breathing with shortness of breath or wheezing. Denies abdominal complaints. Denies any new injury or trauma Related Data Home Medications Medication Instructions Recorded Confirmed albuterol sulfate [ProAir HFA] 2 puff INHALATION Q6H #1 inhaler 12/13/14 03/15/19 Compact Compressor Nebulizer #1 kit 04/17/15 02/20/19 albuterol sulfate 1.25 mg INHALATION Q6H PRN #30 vial 04/17/15 03/15/19 metronidazole 0 TOPICAL BID #45 g 04/18/15 02/20/19 Flovent Diskus 2 puff INHALATION BID #1 disk 08/29/17 03/15/19 ketorolac 1 drp OPHTHALMIC TID #5 ml 12/20/17 03/15/19 omeprazole 40 mg capsule,delayed 40 mg PO DAILY #90 tab-cap 07/28/18 03/15/19 release acetaminophen 500 mg tablet 500 mg PO Q6H PRN 08/29/18 03/15/19 clonazepam 0.5 mg tablet 0.5 mg PO As Directed #120 tab-cap 01/12/19 03/15/19 hydroxyzine HCl 50 mg tablet 50 mg PO BID 02/12/19 03/15/19 cyclobenzaprine 10 mg tablet 10 mg PO HS PRN #30 tab-cap 02/16/19 03/15/19 ondansetron HCl 4 mg tablet 4 mg PO QID PRN #20 tab 02/20/19 03/15/19 prednisone 50 mg PO DAILY #5 tab 03/15/19 Previous Rx's Medication Instructions Recorded Flovent Diskus 2 puff INHALATION BID #1 disk 08/29/17 ketorolac 1 drp OPHTHALMIC TID #5 ml 12/20/17 omeprazole 40 mg capsule,delayed 40 mg PO DAILY #90 tab-cap 07/28/18 release clonazepam 0.5 mg tablet 0.5 mg PO As Directed #120 tab-cap 01/12/19 cyclobenzaprine 10 mg tablet 10 mg PO HS PRN #30 tab-cap 02/16/19 ondansetron HCl 4 mg tablet 4 mg PO QID PRN #20 tab 02/20/19 prednisone 50 mg PO DAILY #5 tab 03/15/19 Allergies Allergy/AdvReac Type Severity Reaction Status Date / Time shellfish derived Allergy Unknown Unverified 03/15/19 14:34 adhesive Allergy Unverified 03/15/19 14:34 divalproex sodium Allergy Skin Rash Unverified 03/15/19 14:34 [From Depakote] topiramate Allergy Unverified 03/15/19 14:34 varenicline tartrate Allergy Unverified 03/15/19 14:34 [From Chantix] venlafaxine AdvReac Intermediate Diarrhea Unverified 03/15/19 14:34 and increased headaches oxycodone AdvReac Mild nausea Unverified 03/15/19 14:34 General Stated Complaint: Nk/Back Pain RED: 3 Review of Systems <CHINO Up - Last Filed: 03/16/19 17:42> All systems reviewed & are unremarkable except as noted in HPI and below Constitutional Constitutional: Denies chills, Reports fatigue, Denies fever(s), Denies headache(s) and Denies malaise ENT Ears, Nose, Mouth, and Throat: Denies headache(s) and Reports neck pain Respiratory Respiratory: Denies cough Gastrointestinal Gastrointestinal: Denies abdominal pain and Denies cramping Musculoskeletal Musculoskeletal: Reports back pain, Denies deformity, Reports neck pain, Reports numbness and Reports tingling Neurologic Neurologic: Denies headache(s), Reports numbness and Reports tingling Endocrine Endocrine: Reports fatigue PFSH <CHINO Up - Last Filed: 03/16/19 17:42> Medical History Anxiety Bipolar disorder has been on a number of meds, she reports adverse reaction to many psych meds.. currently not taking mood stabilizers or antidepressants. Disorder of stomach s/p colonoscopy - improved sx. Fibromyalgia Genital herpes Has Rx for Valtrex. Headache resolved Leg pain, right (Inactive) There is nothing on exam to suggest anything serious with the leg. She had ultrasound in the ED that was negative for DVT. This could possibly be related to vitamin deficiency. We will check vitamin D level B12 and thiamine. Follow-up as needed. Rosacea Tobacco use 2 PPD. counseled to quit. Surgical History (Updated 02/20/19 @ 13:09 by Timur Napoles MD) Cervical Conization/LEEP Cholecystectomy Colonoscopy - MAC (01/12/13) EGD - MAC (01/12/13) History of bilateral ligation of fallopian tubes (Inactive) History of esophagogastroduodenoscopy (Inactive) Ligation of fallopian tube 2000 Status post cholecystectomy (Inactive) Status post LEEP (loop electrosurgical excision procedure) of cervix (Inactive) Family History Mother , cirrhosis at age 66. Diabetes Essential hypertension Depression Heart disease Asthma Grandmother Neoplasm BREAST/BRAIN TUMOR aunt Diabetes Heart disease uncle Diabetes Brother Neoplasm LUNG Sister , ACCIDENT at age 32. No problems noted. Sister DJD (degenerative joint disease) Asthma Sister No problems noted. Sister No problems noted. Brother Neoplasm ?LUNG Grandfather Heart disease Grandfather Leukemia Grandmother Diabetes Neoplasm PANCREATIC Son DJD (degenerative joint disease) Daughter Depression Asthma FAMILY HISTORY Qriio-2-rxfovuuxdxg deficiency Liver disease Diabetes Heart disease Neoplasm 6 DIFFERENT KINDS DJD (degenerative joint disease) Uterus problem Asthma Father , ACCIDENTAL at age 30. Epilepsy Social History Smoking/Tobacco Use Status: Current every day Tobacco Type: cigarettes Tobacco: How many years used: 26 Quit status: considering quitting Alcohol Intake: current Alcohol Intake frequency: holidays/special occasions only Alcohol type: beer and wine Drug use: Occasionally Substance use type: marijuana Household members: spouse and other Details: spouse Brandan Number of Children: 2 Pets and animals: Yes (3 dogs) What is your relationship status?: Panel score (0-1 are the most socially isolated patients): 1 What type of physical activity do you participate in: walking Duration: 15-30 minutes/day Frequency: 3-4 times per week Seatbelt use: always Do you feel safe at home: Yes Do you feel safe in your relationship?: Yes Female Reproductive History Menstrual control method: permanent sterilization History History 5 Para Hx # Term Pregnancies 2 Multiple births Hx # Pregnancies Ectopic pregnancies AB induced Hx Number of Living Children AB spontaneous Exam <CHINO Up - Last Filed: 03/16/19 17:42> Narrative Exam Narrative: CONST: Healthy appearing patient, in no acute distress. Well hydrated. Alert and alert. NECK: Normal visual inspection. FROM. No lymphadenopathy. Trachea midline. No Midline tenderness. Paraspinal tenderness with palpation noted. Pain with rotation bilaterally. Mild pain with flexion extension CHEST: Normal insepection of the chest. RESP: Normal respiratory effort. Speaking full sentences. No cough. No wheezing. No retractions. Clear to auscaltation. Breath sound equal and present bilaterally. CARDIO: No JVD. Normal PMI. Regular Rate. Regular Rhythm. Normal peripheral pulses. MUSCULOSKELETAL: Normal Gait. FROM of all extremities. Distal neurovascularly intact. Sensation intact distally. Couture Dressmaker strength equal and intact bilaterally. Reflexes intact in the upper extremities. No foot drop. Back; no thoracic pain with palpation along the midline of the spine. Mild lumbar pain with palpation superiorly. No step-offs. SKIN: Normal. Dry. No rashes. NEURO: Alert and awake. Speech clear. Course <CHINO Up - Last Filed: 03/16/19 17:42> Vital Signs Vital signs: Vital Signs Temperature 36.6 C 03/15/19 14:29 Pulse 99 H 03/15/19 14:29 Respiratory Rate 18 03/15/19 14:29 Blood Pressure 160/114 H 03/15/19 14:29 Pulse Oximetry 96 03/15/19 14:29 Temperature 36.6 C 03/15/19 14:29 Temperature Source Temporal Artery Scan 03/15/19 14:29 Pulse 99 H 03/15/19 14:29 Respiratory Rate 18 03/15/19 14:29 Blood Pressure 160/114 H 03/15/19 14:29 Blood Pressure Position Sitting 03/15/19 14:29 Pulse Oximetry 96 03/15/19 14:29 Oxygen Delivery Method Room Air 03/15/19 14:29 Oxygen Flow Rate 0 03/15/19 14:29 Pain Level 9 03/15/19 14:29 Sign Out <CHINO Up - Last Filed: 03/16/19 17:42> Sign Out Data: Sign Out Comment: Patient signed out pending MRI of head and neck. Last updated by Ting Donald PA at 03/15/19 16:22
--- NOTE | 2019-03-15 15:25 | NUR.NOTE ---
1525-pt to MRI via cart per transport. Nursing Note:
--- NOTE | 2019-03-15 15:55 | DI.MRI_ITS ---
EXAM: MR BRAIN WO CLINICAL HISTORY: weakness of extremities r/o MS TECHNIQUE: Multiplanar multisequence MRI of the brain was performed. COMPARISON: No exams were available for comparison FINDINGS: VENTRICLES AND EXTRA AXIAL SPACES: Normal in size and morphology for the patient's age. HEMORRHAGE: None. CEREBRAL PARENCHYMA: No focus of restricted diffusion to suggest acute infarct. No space-occupying le sania identified. MIDLINE SHIFT: None. BRAINSTEM/CEREBELLUM: Normal. CALVARIUM: Normal. VISUALIZED PARANASAL SINUSES/MASTOIDS: Clear. OTHER FINDINGS: None. IMPRESSION: Unremarkable MRI of the brain.
--- NOTE | 2019-03-15 16:11 | DI.VRAD_ITS ---
PROCEDURE INFORMATION: Exam: MR Head Without Contrast Exam date and time: 03/15/2019 3:56 PM Clinical history: 38 years old, female; Weakness, extremity; Left; Patient HX: Weakness of extremities, R/O ms. TECHNIQUE: Imaging protocol: MR of the head without contrast. COMPARISON: CT HEAD WITHOUT CONTRAST 02/28/2013 3:17 PM FINDINGS: Brain: No intracranial hemorrhage or extra-axial fluid collection. No evidence of mass effect or midline shift. No white matter abnormalities. No restricted diffusion to suggest acute infarct. Ventricles: Ventricles, cisterns, and sulci are normal. Bones/joints: Unremarkable. Soft tissues: Unremarkable. Sinuses: Unremarkable. Mastoid air cells: No mastoid effusion. Orbits: Unremarkable. IMPRESSION: No acute intracranial pathology. Dictated and Authenticated by: Demian Goncalves MD. Ordering:VEL Maguire MD
--- NOTE | 2019-03-15 16:40 | DI.VRAD_ITS ---
PROCEDURE INFORMATION: Exam: MR Cervical Spine Without Contrast Exam date and time: 03/15/2019 4:17 PM Clinical history: 38 years old, female; Neck pain; Patient HX: Extremity weakness, tingling TECHNIQUE: Imaging protocol: Multiplanar magnetic resonance images of the cervical spine without contrast. COMPARISON: CR XR CERVICAL SPINE COMP 4-5V 02/20/2019 1:40 PM FINDINGS: Fatty marrow signal along the superior endplate of C6. Cervical vertebral body heights are intact. Straightening of the cervical lordosis. The dens is intact. No evidence of acute fracture. No cord compression, expansion, or abnormal cord signal. Visualized structures of the posterior fossa are unremarkable. Soft tissues are unremarkable. C2-C3: No significant canal or foraminal narrowing. C3-C4: No significant canal or foraminal narrowing. C4-C5: Posterior disc protrusion causes mild canal narrowing with indentation of the anterior thecal sac. No significant foraminal narrowing. C5-C6: Posterior disc protrusion causes mild canal narrowing with indentation of the anterior thecal sac. Mild left foraminal narrowing. C6-C7: No significant canal or foraminal narrowing. C7-T1: No significant canal or foraminal narrowing. IMPRESSION: 1. No acute findings in the cervical spine. 2. Other chronic findings, as above. Dictated and Authenticated by: Demian Goncalves MD. Ordering:VEL Maguire MD
--- NOTE | 2019-03-15 17:00 | NUR.NOTE ---
1645-pt retunned from MRI, awaiting results for dispo with no distress noted. Nursing Note:
--- NOTE | 2019-03-15 17:56 | NUR.NOTE ---
Referral faxed to [facility]. Dr. Alcantara.Nursing Note:
== END 2019-03-15 17:10 | disposition home or self-care (01) ==
PROVIDERS: Emergency Provider Student in an Organized Health Care Education/Training Program; PCP Family Medicine
DX: R93.7 Abnormal findings on diagnostic imaging of other parts of musculoskeletal system (principal); M54.2 Cervicalgia; M79.7 Fibromyalgia
CPT/HCPCS: 99284; 70551; 72141

== ENCOUNTER 2019-08-06 00:41 | Outpatient (CLI) | payer MEDICARE, MEDICAID, SELFPAY ==
--- NOTE | 2019-08-06 07:45 | ETT_ITS ---
APPROVED REPORT Exam: Exercise Treadmill Patient Location: Out-Patient Room/Bed: Stress Nurse: Celine Denney RN BMI: 36.90 Baseline Rhythm: Sinus Rhythm Indications: Exertional chest pain associated with SOB. Medical History Medical History: Angina Allergies: Verenicline tartrate. Oxycodone. Divalproex sodium. Venlafaxine. Topiramate. Shellfish Cardiac Risk Factors: Smoking, FHX of CAD, Borderline diabetes. Pretest Chest Pain Characteristics: Exertional Chest pain Exercise History: Sedentary Lung Sounds: Clear to auscultation Heart Sounds: Regular Stress Test Details Test: Exercise stress testing was performed using a Chun protocol. Rest Stress HR Resting HR Supine: 61 bpm Max Heart Rate (APMHR): 180 bpm Resting HR Standin bpm Target HR (85% APMHR): 153 bpm Max HR Achieved: 156 bpm % of APMHR: 86 HR response to stress: Normal HR response to stress BP Resting BP Supine: 140/66 mmHg Resting BP Standin/62 mmHg Max BP: 168/74 mmHg Recovery BP: 158/66 mmHg BP response to stress: Blunted blood pressure response to stress. ECG Resting ECG: Sinus Rhythm Stress ECG: Sinus Tachycardia ST Change: No significant ST segment changes Arrhythmia: None Recovery ECG: Sinus Rhythm Recovery ST Change: Normal Recovery Arrhythmia: None Clinical Reason for Termination: Dyspnea, Fatigue Stress Symptoms: Dyspnea Exercise duration: 06 min56 sec Highest Stage Reached: Stage 3: 3.4 mph at 14% grade. Exercise capacity: 8.50 METs Functional Capacity: Mildly deminished capacity Stress ECG Conclusion 1. Patient exercised for 7 minutes (8.5 METS). Rate-pressure product was 24,000. 2. Exercise was stopped due to fatigue. Patient had no symptoms specific for angina during exercise. 3. There were no EKG changes suggestive of ischemia. 4. The Mills Score (6) estimates an annual cardiovascular mortality of 0% and a five year survival of 95%. Using the Mills Score there is a low probability of any angiographic coronary disease. Protocol Used: Chun Protocol Stress Test Summary STAGE Time (mins) Speed (mph) Grade (%) HR BP SYMPTOMS METS Supine 61 140/66 Standing 78 142/62 1 3 1.7 10 114 150/76 4.6 2 6 2.5 12 143 158/76 7 3 9 3.4 14 150 10.2 1 min recovery 154 164/80 3 min recovery 94 168/74 6 min recovery 94 158/66 9 min recovery 89 12 min recovery
== END 2019-08-06 01:01 ==
PROVIDERS: PCP Family Medicine; Visit Provider Family Medicine
DX: R07.89 Other chest pain (principal); R06.02 Shortness of breath; R06.09 Other forms of dyspnea; F17.200 Nicotine dependence, unspecified, uncomplicated; Z82.49 Family history of ischemic heart disease and other diseases of the circulatory system
CPT/HCPCS: 93016; 93018; 93017

== ENCOUNTER 2020-05-20 00:58 | Outpatient (CLI) | payer MEDICARE, MEDICAID, SELFPAY ==
--- NOTE | 2020-05-20 08:15 | DI.MAMMO_ITS ---
EXAM: MG MAMMO SCREENING CLINICAL HISTORY: screening.Z12.39 TECHNIQUE: Bilateral full field digital CC and MLO mammographic images were obtained with 3D tomosyn thesis and utilizing computer aided detection (CAD). COMPARISON: None. FINDINGS: Masses/Architectural Distortion: None seen. Microcalcifications: No suspicious pleomorphic-type are seen. Skin Thickening/Nipple Retraction: None. IMPRESSION: 1. No significant interval change with no specific features of malignancy noted. 2. Unless there is more urgent need, screening mammography is recommended, as per [employer] guidelines. BI-RADS Category 1 - Negative Breast Density - Category B - Scattered areas of fibroglandular density Breast density category C or D implies that the patient has dense breast tissue. Dense breast tissue is very common and is not abnormal but dense breast tissue can make it harder to find cancer on a ma mmogram. Also, dense breast tissue may increase their breast cancer risk. This information about the result of the mammogram report was provided to the patient to raise their awareness. Use this report when you speak with the patient about their risks for breast cancer, which includes their family hist ory. At that time, you may recommend for more screening tests (Ultrasound or MRI) as they might be us eful based on their risk. A negative radiographic report should not delay biopsy if a dominant or clinically suspicious mass is present. Up to ten percent of cancers are not identified on mammography. A negative report may reinforce clinical impression. Adenosis and dense breasts may obscure an underlying neoplasm. False positive reports average 6 to 10%. Patient will receive a letter notifying them of these results.
== END 2020-05-20 01:18 ==
PROVIDERS: PCP Nurse Practitioner Family; Visit Provider Nurse Practitioner Family
DX: Z12.31 Encounter for screening mammogram for malignant neoplasm of breast (principal)
CPT/HCPCS: 77063; 77067

== ENCOUNTER 2020-05-22 03:21 | Outpatient (CLI) | payer MEDICARE, MEDICAID, SELFPAY ==
--- NOTE | 2020-05-22 | DI.US_ITS ---
EXAM: MYOFASCIAL PAIN SYNDROME, ULTRASOUND GUIDED INJECTION COMPARISON: No exams were available for comparison TECHNIQUE: Ultrasound performed using standard protocol. FINDINGS: Sonography was provided for Dr. Bravo during the performance of a trigger point injection. Please re mone to the procedure report for complete details. DATA REPOSITORY:
[2020-05-22 10:03] VITALS: BP 138/94; PULSE 88; RESP 20; TEMP 37.1; O2SAT 98
--- NOTE | 2020-05-22 10:50 | PDOC.PAIN_ITS ---
Pain Clinic Procedure Note Procedure Note Procedure Note: Date of procedure: 05/22/19 ULTRASOUND GUIDED bilateral trapzius and levator scapulae muscle trigger point INJECTIONS DX: Muscle pain Pre-Procedural Evaluation: LISA BLOUNT has been referred to the [facility] for an Ultrasound Guided [right/left/bilateral trapezius and levator scapulae muscle trigger point injection for a chief complaint of upper shoulder/back/neck pain. Pre-procedure Pain Score: 6/10 Patient was interviewed and the medical record reviewed. There were no medical, pharmacologic, radiographic, or other structural contraindications to preforming an ultrasound guided injection. Risks and expected side effects as well as potential benefits of the procedure were reviewed. The patient consent form was signed and witnessed. Standard time-out procedure was performed. The use of direct ultrasound visualization of the needle (rather than a non- guided injection) was required to increase patient safety by excluding inadvertent intramuscular, intratendinous, or intraneural needle placement and minimizing bleeding by avoiding osteochondral or vascular injury from the needle. Additionally, the increased accuracy of placement may increase clinical effectiveness and will allow higher diagnostic specificity when evaluating effectiveness of this injection. Procedure Description: The patient was placed in the prone position and automated blood pressure cuff and pulse oximeter applied for monitoring during the procedure and recorded in the medical record. Pre-injection ultrasound scanning of the area of interest was performed using linear transducer, identifying relevant anatomy, landmarks, and neurovascular structures allowing for optimal needle path. The site was then prepared in the usual sterile fashion, using thorough Chlorhexadine preparation of the skin and sterile draping. The same ultrasound transducer was then passed into the sterile field using sterile probe cover and sterile ultrasound gel. The injection target was again visualized. Skin and subcutaneous tissues were anesthetized with 2 mL of 1% Lidocaine. A 21G 3.5 Pajunk ultrasound needle was placed under live ultrasound guidance, using an in-plane approach, to the target area. After visualization of the needle tip at the target area, a mixture of 3 mL 2% Lidocaine and 1 mL Depomedrol (40 mg/cc), totaling 4 mL of injectate was delivered after negative aspiration for blood. Ultrasound images were captured and stored for documentation purposes. Post-procedure Pain Score:1/10 Vital signs were stable throughout the procedure and were as recorded in the docflowsheet by the nursing staff. Follow up plans and appointments were discussed with the patient.Post procedure instruction was given as documented in nursing documentation and having met discharge criteria, they were discharged from the [facility]. COMMENTS: If this procedure is found to be helpful, it can be completed up to 4 times per 12 months. Ubaldo Bravo DO, MPH Pain Management
[2020-05-22] MEDS: Lidocaine 2% Pres-Free 5 ML VIAL IJ (11:04)
[2020-05-22] MEDS: methylPREDNISolone ACETATE 40 MG/ML VIAL IJ (11:04)
[2020-05-22 11:06] VITALS: PULSE 66; O2SAT 97
== END 2020-05-22 03:41 ==
PROVIDERS: PCP Nurse Practitioner Family; Visit Provider Preventive Medicine Occupational Medicine
DX: M25.511 Pain in right shoulder; M25.512 Pain in left shoulder; M79.18 Myalgia, other site
CPT/HCPCS: 20553; 76942; J1030

== ENCOUNTER 2020-08-05 09:52 | Outpatient (CLI) | payer MEDICARE, MEDICAID, SELFPAY ==
--- NOTE | 2020-08-05 06:00 | DI.RAD_ITS ---
EXAM: XR PAIN CLINIC LUMBAR SP 2V CLINICAL HISTORY: Dx: Lumbar Spondylosis TECHNIQUE: 2D and realtime digital imaging was performed. COMPARISON: No exams were available for comparison FINDINGS: C-arm fluoroscopy was utilized by Dr. Russell during reported bilateral lumbar medial branch block. Hard copy show needle placement bilaterally at what appeared to be the L3-4 L4-5 and L5-S1 levels. Fluoro time, 45.8 seconds. IMPRESSION: RADIATION DOSE DELIVERED: Total DLP
[2020-08-05 10:02] VITALS: BP 130/91; PULSE 75; RESP 20; TEMP 37; O2SAT 94
--- NOTE | 2020-08-05 10:57 | PDOC.PAIN_ITS ---
Pain Clinic Procedure Note Procedure Note Procedure Note: Lumbar/Sacral Medial Branch Blocks Pre-operative diagnosis: lumbar spondylosis Post-operative diagnosis: same as above LISA BLOUNT has been referred to the [facility] for lumbar/sacral medial branch blocks. COMMENTS: patient has a diagnosis of fibromyalgia, she has diffuse lower back pain, low energy at baseline, easy fatigue. she came in today and was laying in the recliner in the pre-operative area. she reports a 10 out of 10 pain across her lower back with lumbar extension. This daily pain is preventing from standing for more than a few minutes, she cannot carry out things such as washing dishes, she has tried PT which provided no pain relief. she also reports feeling her usual neck pain has started to return. she has had previous injections with ultrasound guided TPI by Dr Bravo. She is asking if she can schedule a repeat injection. she reports a history of shellfish allergy with unclear reaction, she was young and her mother never told her what type of reaction she has had. Although there is small percentage of cross reaction with shellfish allergy and contrast medium, patient expressed concerns that she has not been cleared by an cushion mat maker and anxiety of having a possible reaction, for the purpose of today's procedure, omnipaque can be omitted and it does not interfere with accuracy of targets. Patient was interviewed and the medical record reviewed. There were no medical, pharmacologic, radiographic or other structural contraindications to attempting fluoroscopically guided local anesthetic lumbar/sacral medial branch blocks. Risks and expected side effects as well as potential benefit of the procedure were reviewed and voiced concerns addressed. The printed consent form was signed and witnessed. Standard time-out procedure was performed. Patient was placed in the prone position on the fluoroscopy table and automated blood pressure cuff and pulse oximeter applied. The skin entry points for approaching the anatomic target points of the segmental medial branches of bilateral L3, L4, L5-DR were identified with anfluoroscopy and marked. Following thorough Chlorhexadine preparation of the skin and draping and 1% lidocaine infiltration of the skin entry points and subcutaneous tissues, a 22 gauge spinal needle was placed under fluoroscopic guidance down on to the target point for each respective segmental medial branch.Position was confirmed in A/P, oblique and lateral views with 0.25ml of omnipaque 240. Then 0.5ml 0.5% Bupivacaine was injected. Vital signs were stable throughout the procedure and were as recorded in the docflowsheet by the nursing staff. Follow up plans and appointments were discussed and was instructed to keep careful note of how the usual pain was modified by these injections. Specifically was asked to keep a pain diary for the next 24 hours using a numeric pain scale of 0-10 and report these results at the follow-up visit. Post procedure instruction was given as documented in the nursing documentation and having met discharge criteria. Patient was discharged from the [facility]. Based on the medial branches blocked today, if the patient has adequate relief and we are able to proceed to radiofrequency ablation, the treatment should result in the denervation of the bilateral L4-5 and L5-S1 facets. We would expect to denervate a total of 4 facets during the radiofrequency ablation. COMMENTS: patient tolerated procedure well. she reports post-procedure pain level to be 7 out of 10. I personally the entire procedure. He Russell MD Pain Management CC: TAMMI Raymond
[2020-08-05 11:03] VITALS: BP 141/95; PULSE 67; RESP 16; O2SAT 97
[2020-08-05] MEDS: Bupivacaine 0.5% Pres-Free 10 ML VIAL IJ (11:04)
== END 2020-08-05 09:53 | disposition home or self-care (01) ==
LOC: PC 09:52
PROVIDERS: PCP Nurse Practitioner Family; Visit Provider Internal Medicine
DX: M47.816 Spondylosis without myelopathy or radiculopathy, lumbar region (principal)
CPT/HCPCS: 64493; 64494; 72100

== ENCOUNTER 2020-08-20 02:03 | Outpatient (CLI) | payer MEDICARE, MEDICAID, SELFPAY ==
--- NOTE | 2020-08-20 06:30 | DI.MRI_ITS ---
EXAM: MR LUMBAR SPINE WO CLINICAL HISTORY: Lumbar Radiculopathy,MECHANICAL LOW BACK PAIN. TECHNIQUE: Multiplanar multisequence MRI of the Lumbar spine was performed. COMPARISON: No exams were available for comparison FINDINGS: Five lumbar vertebrae are presumed. Conus medullaris is at normal level. There is no evidence of conus mass nor subjacent clumping of in trathecal nerve roots to suggest arachnoiditis. 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 Bones:There are no fractures nor ominous osseous lesions in the lumbar vertebral bodies and visualize d sacrum. Small benign intraosseous hemangiomas noted in the L1 vertebral body. With respect to the individual levels... T12-L1: Unremarkable L1-2: Normal disc height and signal. No disc herniation nor central canal stenosis.No foraminal steno sis L2-3: Normal disc height. No disc herniation nor central canal stenosis.No foraminal stenosis.No face t arthropathy. L3-4: Normal disc height. No disc herniation or central canal stenosis.No foraminal stenosis.No face t arthropathy. L4-5: Normal disc height and signal. There is mild annular bulging centrally and in the floor of the exiting left neural foramen. There is mild central spinal canal stenosis due to the annular bulging and short AP dimensions the pedicles. Mild degenerative changes are seen in the left facet joint. Right facet unremarkable. There is mild foraminal stenosis on the left side. No foraminal stenosis on the right side. L5-S1: Normal disc height. There is a central subligamentous disc protrusion, better seen on the sag ittal than the axial images. Slightly indents the thecal sac. Central canal dimensions are lower no rmal. No significant foraminal stenosis. No facet arthropathy. Soft tissues: paraspinal soft tissues appear unremarkable. IMPRESSION: 1. Small central disc protrusion at L5-S1 level. Slightly indents the thecal sac. No prominent asso ciated central nor foraminal stenosis. 2. At L4-5 level there is annular bulging which extends into the floor of the exiting left neural for amen. There is mild central spinal canal stenosis and there is mild left-sided foraminal stenosis at this level. No foraminal stenosis on the right side. 3. Minimal facet degenerative changes as described above. DATA REPOSITORY:
== END 2020-08-20 02:23 ==
PROVIDERS: PCP Nurse Practitioner Family; Visit Provider Nurse Practitioner Family
DX: M54.16 Radiculopathy, lumbar region (principal); M51.16 Intervertebral disc disorders with radiculopathy, lumbar region; M47.27 Other spondylosis with radiculopathy, lumbosacral region
CPT/HCPCS: 72148

== ENCOUNTER 2020-10-28 12:14 | Outpatient (CLI) | payer MEDICARE, MEDICAID, SELFPAY ==
[2020-10-28 12:22] VITALS: BP 123/77; PULSE 79; RESP 20; TEMP 37.2; O2SAT 98
--- NOTE | 2020-10-28 12:57 | DI.RAD_ITS ---
Exam(s) XR PAIN CLINIC LUMBAR SP 2V EXAM: XR PAIN CLINIC LUMBAR SP 2V CLINICAL HISTORY: Dx: Lumbar Radiculopathy TECHNIQUE: 2D and realtime digital imaging was performed. COMPARISON: No exams were available for comparison FINDINGS: C-arm fluoroscopy was utilized by Dr. Russell during lumbar epidural steroid injection. Hard copy shows i njection in the posterior midline at L5-S1. IMPRESSION: RADIATION DOSE DELIVERED: Meghar=11.3 mGy
--- NOTE | 2020-10-28 12:57 | PDOC.PAIN ---
Pain Clinic Procedure Note Procedure Note Procedure Note: Lumbar Epidural Steroid Injection Procedure Note pre-procedure diagnosis: lumbar radiculopathy post procedure diagnosis: same as above COMMENTS: patient has history of fibromyalgia and reports axial back pain with intermittent radiation down bilateral legs. MRI L spine showed a small disc protrusion at L5-S1. Patient is referred for a trial of LESI. she did not respond to diagnostic lumbar medial branch nerve block for treatment of her axial back pain. LISA BLOUNT has been referred to the [facility] for lumbar epidural steroid injection. The patient was greeted by the nurse who verified patients name and . Patient was then taken to the fluoroscopy suite. The patient was interviewed and the medial record reviewed. There were no medical, pharmacologic, radiographic, or other structural contraindications to attempting fluoroscopically guided lumbar epidural steroid injection. Risks and expected side effects as well as potential benefits of the procedure were reviewed and voiced concerns expressed. The patient consent form was signed and witnessed. Standard patient time-out procedure was performed. The patient was placed in the prone position on the fluoroscopy table and automated blood pressure cuff and pulse oximeter applied. The skin entry point for entering/approaching the epidural space by a L5-S1 and marked. Following thorough chlorhexadine preparation of the skin and draping and 1% lidocaine infiltration of the skin entry point and subcutaneous tissues, a 18 gauge Touhy needle was placed under fluoroscopic guidance and with loss of resistance technique into the epidural space. Needle tip placement and depth were aided and confirmed by fluoroscopy. There was no paresthesia or return of blood or CSF through the needle. 1 cc's of Omnipaque 240 was injected with clear epidural spread confirmed with fluoroscopy. 80mg depomedrol was injected. There was not any unusual discomfort expressed by LISA BLOUNT. Patient's vital signs were stable throughout the procedure and were as recorded in nursing records. Follow up plans and appointments were discussed with patient. Post procedure instruction was given as documented in nursing records and having met discharge criteria and was discharged from the [facility]. COMMENTS: If this procedure is helpful, it can be completed up to 3 times per 12 months. Pre-procedure pain level 7/10, post-procedure pain level 6 out of 10. He Russell MD Pain Management
[2020-10-28] MEDS: Omnipaque 240 MG/ML 50 ML BTL IJ (13:02)
[2020-10-28 13:11] VITALS: BP 142/81; PULSE 73; RESP 22; O2SAT 96
[2020-10-28] MEDS: methylPREDNISolone ACETATE 80 MG/ML VIAL IJ (13:11)
== END 2020-10-28 12:15 | disposition home or self-care (01) ==
PROVIDERS: PCP Nurse Practitioner Family; Visit Provider Internal Medicine
DX: M54.16 Radiculopathy, lumbar region (principal)
CPT/HCPCS: 62323; 72100; J1040; Q9967

== ENCOUNTER 2020-11-06 10:29 | Outpatient (CLI) | payer MEDICARE, MEDICAID, SELFPAY ==
[2020-11-06 12:35] LABS: Anion Gap 10.7 mmol/L (3-11); BUN 11 mg/dL (7-18); CO2 25.3 mmol/L (21.0-32.0); Calcium 8.2 mg/dL (8.5-10.1); Calculated LDL 130 mg/dL (<100); Chloride 107 mmol/L (98-107); Cholesterol 215 mg/dL (<200); Glucose 102 mg/dL (74-106); HDL Cholesterol 38 mg/dL (40-60); Potassium 4.6 mmol/L (3.5-5.1); Sodium 143 mmol/L (136-145); Triglyceride 235 mg/dL (<150)
[2020-11-06 12:36] LABS: Hemoglobin A1C 5.7 % (<5.7)
== END 2020-11-06 10:30 | disposition home or self-care (01) ==
LOC: LOS 10:29
PROVIDERS: PCP Nurse Practitioner Family; Visit Provider Nurse Practitioner Family
DX: R73.03 Prediabetes (principal); E78.5 Hyperlipidemia, unspecified
CPT/HCPCS: 36415; 80048; 80061; 83036

== ENCOUNTER 2020-11-27 03:09 | Outpatient (CLI) | payer MEDICARE, MEDICAID, SELFPAY ==
--- NOTE | 2020-11-27 | DI.US_ITS ---
Exam(s) US PAIN CLINIC NEEDLE GUIDANCE EXAM: CHRONIC LOW BACK PAIN,FIBROMYALGIA,C SPINE PAIN,ULTRASOUND GUIDED INJECTION COMPARISON: US US PAIN CLINIC NEEDLE GUIDANCE from 05/22/2020 TECHNIQUE: Ultrasound performed using standard protocol. FINDINGS: Ultrasound guidance was provided during trigger point trapezius injections bilaterally performed by alexandro alvarado house painting instructor. The radiologist was not present for this. IMPRESSION: DATA REPOSITORY:
[2020-11-27 13:56] VITALS: BP 152/82; PULSE 71; RESP 16; TEMP 36.6; O2SAT 98
[2020-11-27 14:25] VITALS: PULSE 60; RESP 18; O2SAT 94
--- NOTE | 2020-11-27 14:28 | PDOC.PAIN_ITS ---
Pain Clinic Procedure Note Procedure Note Procedure Note: ULTRASOUND GUIDED BILATERAL TRAPEZIUS MUSCLE TRIGGER POINT INJECTIONS Pre-Procedural Evaluation: Katie Calvert has been referred to the [facility] for an Ultrasound Guided bilateral trapezius muscle trigger point injection for a chief complaint of upper back and neck pain. Pre-procedure Pain Score: 6/10 Pre-procedure dx: Muscle pain Post-procedure dx: same Patient was interviewed and the medical record reviewed. There were no medical, pharmacologic, radiographic, or other structural contraindications to preforming an ultrasound guided injection. Risks and expected side effects as well as potential benefits of the procedure were reviewed. The patient consent form was signed and witnessed. Standard time-out procedure was performed. The use of direct ultrasound visualization of the needle (rather than a non- guided injection) was required to increase patient safety by excluding inadvertent intramuscular, intratendinous, or intraneural needle placement and minimizing bleeding by avoiding osteochondral or vascular injury from the needle. Additionally, the increased accuracy of placement may increase clinical effectiveness and will allow higher diagnostic specificity when evaluating effectiveness of this injection. Procedure Description: The patient was placed in theprone position and automated blood pressure cuff and pulse oximeter applied for monitoring during the procedure and recorded in the medical record. Pre-injection ultrasound scanning of the area of interest was performed using a linear transducer, identifying relevant anatomy, landmarks, and neurovascular structures allowing for optimal needle path. The site was then prepared in the usual sterile fashion, using thorough Chlorhexadine preparation of the skin and sterile draping. The same ultrasound transducer was then passed into the sterile field using sterile probe cover and sterile ultrasound gel. The injection target was again visualized. Skin and subcutaneous tissues were anesthetized with 5 mL of 1% Lidocaine. A 21G 3.5 Pajunk needle was placed under live ultrasound guidance, using an in-plane approach, to the target area. After visualization of the needle tip at the target area, a mixture of 2.5 cc 2% Lidocaine and 1/2 cc of Depomedrol (40 mg/cc) at each site was delivered after negative aspiration for blood. Ultrasound images were captured and stored for documentation purposes. Post-procedure Pain Score: 1/10 Vital signs were stable throughout the procedure and were as recorded in the docflowsheet by the nursing staff. Follow up plans and appointments were discussed with the patient.Post procedure instruction was given as documented in nursing documentation and having met discharge criteria, they were discharged from the [facility]. COMMENTS: No complications Ubaldo Bravo DO, MPH Pain Management
[2020-11-27] MEDS: methylPREDNISolone ACETATE 40 MG/ML VIAL IJ (14:33)
[2020-11-27] MEDS: Lidocaine 1% Pres-Free 5 ML VIAL IJ (14:33)
== END 2020-11-27 03:29 ==
PROVIDERS: PCP Nurse Practitioner Family; Visit Provider Preventive Medicine Occupational Medicine
DX: M79.18 Myalgia, other site (principal)
CPT/HCPCS: 20552; 76942; J1030

== ENCOUNTER 2021-06-03 01:08 | Outpatient (CLI) | payer MEDICARE, MEDICAID, SELFPAY | END 2021-06-03 01:28 | PROVIDERS: PCP Nurse Practitioner Family; Visit Provider Nurse Practitioner Family ==

== ENCOUNTER 2021-07-14 01:37 | Outpatient (CLI) | payer MEDICARE, MEDICAID, SELFPAY ==
[2021-07-14 10:41] LABS: Hemoglobin A1C 5.6 % (<5.7)
[2021-07-14 10:46] LABS: Anion Gap 8.7 mmol/L (3-11); BUN 9 mg/dL (7-18); CO2 25.3 mmol/L (21.0-32.0); CREATININE 0.9 mg/dL (0.55-1.02); Calcium 8.4 mg/dL (8.5-10.1); Chloride 104 mmol/L (98-107); Glucose 101 mg/dL (74-106); Potassium 4.5 mmol/L (3.5-5.1); Sodium 138 mmol/L (136-145)
== END 2021-07-14 01:38 | disposition home or self-care (01) ==
LOC: LBO 01:37
PROVIDERS: PCP Nurse Practitioner Family; Visit Provider Nurse Practitioner Family
DX: R73.03 Prediabetes (principal)
CPT/HCPCS: 36415; 80048; 83036

== ENCOUNTER → 2021-08-12 01:50 | Outpatient (CLI) | payer MEDICARE, MEDICAID, SELFPAY | PROVIDERS: PCP Nurse Practitioner Family; Visit Provider Nurse Practitioner Family ==

== ENCOUNTER 2021-08-21 13:56 | Outpatient (REF) | payer MEDICARE, MEDICAID, SELFPAY ==
[2021-08-21 19:14] LABS: *AMPHETAMINES SCREEN URINE Negative (Negative); *BARBITURATES SCREEN URINE Negative (Negative); *BENZODIAZEPINES SCREEN URINE Negative (Negative); Cannabinoids THC Positive (Negative); Cocaine Screen,Urine Negative (Negative); METHADONE URINE SCREEN Negative (Negative); OPIATES URINE SCREEN Negative (Negative); Tricyclic Antidepressants Negative (Negative)
[2021-08-26 18:03] LABS: 2-OH-Ethyl-Flurazepam Negative ng/mL (Cutoff: 10); 7-NH-Clonazepam 137 ng/mL (Cutoff: 10); 7-NH-Flunitrazepam Negative ng/mL (Cutoff: 10); Alpha OH-Alprazolam Negative ng/mL (Cutoff: 10); Alpha-OH Midazolam Negative ng/mL (Cutoff: 10); Alpha-OH-Triazolam Negative ng/mL (Cutoff: 10); Alprazolam Negative ng/mL (Cutoff: 10); Benzodiazepines Interpretation Positive.; Chlordiazepoxide Negative ng/mL (Cutoff: 10); Clobazam Negative ng/mL (Cutoff: 10); Clonazepam Negative ng/mL (Cutoff: 10); Diazepam Negative ng/mL (Cutoff: 10); Flurazepam Negative ng/mL (Cutoff: 10); Lorazepam Negative ng/mL (Cutoff: 10); Midazolam Negative ng/mL (Cutoff: 10); N-Desmethylclobazam Negative ng/mL (Cutoff: 10); Prazepam Negative ng/mL (Cutoff: 10); Temazepam Negative ng/mL (Cutoff: 10); Triazolam Negative ng/mL (Cutoff: 10); Zolpidem Carboxylic acid Negative ng/mL (Cutoff: 10)
== END 2021-08-21 13:57 | disposition home or self-care (01) ==
LOC: LBN 13:56
PROVIDERS: PCP Nurse Practitioner Family; Visit Provider Nurse Practitioner Family
DX: F41.1 Generalized anxiety disorder (principal); F43.10 Post-traumatic stress disorder, unspecified; Z79.899 Other long term (current) drug therapy; Z51.81 Encounter for therapeutic drug level monitoring
CPT/HCPCS: 80307; 80346

== ENCOUNTER 2021-09-30 07:57 | Emergency (ER) | payer MEDICARE, MEDICAID, SELFPAY ==
[2021-09-30 08:06] VITALS: BP 146/102; PULSE 72; RESP 14; TEMP 36.6; O2SAT 97
--- NOTE | 2021-09-30 08:25 | ED.GENADUL_ITS ---
Discharge Plan Disposition Patient Disposition: HOME Condition: Stable Discharge Details Clinical Impression: Lumbar back sprain Primary Care Provider: Becky Jenkins ED Provider: Sofiya Lindsey Home Meds and New Rx's Prescriptions: Continued acetaminophen [Tylenol Extra Strength] 500 mg tablet 1,000 mg PO Q6H PRN (DME) Aerochamber MV Spacer See Rx Instructions .ROUTE .MEDSUPPLY Qty: 1 0RF Rx Instructions: Use with albuterol inhaler Flovent Diskus 50 mcg/actuation blister with device 2 inh Inhalation BID Qty: 180 4RF albuterol sulfate [ProAir HFA] 90 mcg/actuation HFA aerosol inhaler 2 puff Inhalation Q6H PRN (Reason: shortness of breath or wheezing) Qty: 18 4RF albuterol sulfate 1.25 mg/3 mL solution for nebulization 1.25 mg Inhalation Q6H PRN (Reason: shortness of breath or wheezing) Qty: 90 4RF fluticasone propionate 110 mcg/actuation HFA aerosol inhaler 1 inh inhalation BID Qty: 3 4RF Rx Instructions: 1 puff twice a day, use spacer with this hydroxyzine HCl 50 mg tablet 100 mg PO QHS Qty: 180 4RF omeprazole 40 mg capsule,delayed release(DR/EC) 40 mg PO DAILY Qty: 90 4RF melatonin 10 mg capsule 10 mg PO HS PRN gabapentin 600 mg tablet 600 mg PO TID Qty: 270 4RF ondansetron HCl 4 mg tablet 4 mg PO Q8H PRN (Reason: nausea and vomiting) Qty: 60 1RF baclofen 10 mg tablet 10 mg PO TID PRN (Reason: back pain) Qty: 90 2RF clonazepam 0.5 mg tablet,disintegrating 0.5 - 1 mg PO TID Qty: 112 2RF Rx Instructions: Take 1 tab in morning and afternoon and 2 tabs at bedtime Discharge Instructions Instructions: Back Pain (ED), Lower Back Exercises (ED) Additional Instructions: I recommend a follow-up with the pain clinic. He recently had an MRI with his primary and is not recommended for x-rays. Please continue to take the muscle relaxers and pain medication as previously prescribed. Return to the ER for any loss of bowel or bladder control, numbness or tingling around her rectum or groin, Follow up with primary care provider in 3-5 days. Return to ED sooner if any worsening or concerns. Increase oral fluids. Please use your inhaler as needed at home. Stop smoking if possible. Alternate ice and heat. Referrals: Becky Jenkins NP [Primary Care Provider] - 5 days Discharge Data Discharge Date/Time-TO BE ENTERED AT DEPARTURE: 09/30/21 09:02 Medical Decision Making 41-year-old female presents to the ER with chief complaint of lower back pain denies any saddle anesthesia no loss of bowel or bladder control reports that she has been taking gabapentin at 0600 this morning Tylenol and baclofen at 630. She does have some radiation down her bilateral legs after some yard work yesterday. Denies any dysuria. She does have a past medical history of obesity encountered, insomnia, fibromyalgia, chronic low back pain, IBS, PTSD bipolar hyperlipidemia. At this time physical exam is unremarkable she does have some lower paraspinous tenderness with palpation. She denies any red flags. She did have a lumbar injection MRI at the end of July of 2020. Morphine 4 mg IM ordered. She does see pain clinic but has not seen them in a while. Based on clinical exam it does not seem necessary to perform any imaging at this time. Patient was given some pain medication here in the department and instructed to follow-up with pain clinic and/or PCP. I did instruct on red flags for which to return to the emergency department. This text was generated using [employer] dictation system, please disregard any oddities of phrase or misspellings. Medical Records Medical records reviewed: Yes I reviewed the patient's medical records. HPI General Mode of arrival: ambulatory . Date/Time Provider Initiated Documentation: 09/30/21 08:10 . Limitations to Documentation: no limitations . Information obtained by: patient, RN notes reviewed and old records reviewed . HPI Narrative: 41-year-old female presents to the ER with chief complaint of lower back pain denies any saddle anesthesia no loss of bowel or bladder control reports that she has been taking gabapentin at 0600 this morning Tylenol and baclofen at 630. She does have some radiation down her bilateral legs after some yard work yesterday. Denies any dysuria. She does have a past medical history of obesity encountered, insomnia, fibromyalgia, chronic low back pain, IBS, PTSD bipolar hyperlipidemia. Related Data Home Medications Medication Instructions Recorded Confirmed acetaminophen 500 mg tablet 1,000 mg PO Q6H PRN 08/29/18 09/30/21 (Tylenol Extra Strength) inhalational spacing device #1 ea 05/05/20 09/30/21 (Aerochamber MV spacer) melatonin 10 mg capsule 10 mg PO HS PRN 09/23/20 09/30/21 gabapentin 600 mg tablet 600 mg PO TID #270 tabs 04/08/21 09/30/21 albuterol sulfate 1.25 mg/3 mL 1.25 mg (3 mL) inhalation Q6H PRN 05/07/21 09/30/21 solution for nebulization shortness of breath or wheezing #90 mL albuterol sulfate 90 mcg/actuation 2 puff inhalation Q6H PRN 05/07/21 09/30/21 aerosol inhaler (ProAir HFA) shortness of breath or wheezing #18 grams fluticasone propionate 110 1 inh inhalation BID #3 ea 05/07/21 09/30/21 mcg/actuation HFA aerosol inhaler fluticasone propionate 50 2 inh inhalation BID #180 ea 05/07/21 09/30/21 mcg/actuation blister powder for inhalation (Flovent Diskus) hydroxyzine HCl 50 mg tablet 100 mg PO QHS #180 tabs 05/07/21 09/30/21 omeprazole 40 mg capsule,delayed 40 mg PO DAILY #90 tab-caps 05/07/21 09/30/21 release ondansetron HCl 4 mg tablet 4 mg PO Q8H PRN nausea and 07/08/21 09/30/21 vomiting #60 tabs baclofen 10 mg tablet 10 mg PO TID PRN back pain #90 tabs 08/10/21 09/30/21 clonazepam 0.5 mg disintegrating 0.5 - 1 mg PO TID #112 tabs 09/09/21 09/30/21 tablet Previous Rx's Medication Instructions Recorded inhalational spacing device #1 ea 05/05/20 (Aerochamber MV spacer) gabapentin 600 mg tablet 600 mg PO TID #270 tabs 04/08/21 albuterol sulfate 1.25 mg/3 mL 1.25 mg (3 mL) inhalation Q6H PRN 05/07/21 solution for nebulization shortness of breath or wheezing #90 mL albuterol sulfate 90 mcg/actuation 2 puff inhalation Q6H PRN 05/07/21 aerosol inhaler (ProAir HFA) shortness of breath or wheezing #18 grams fluticasone propionate 110 1 inh inhalation BID #3 ea 05/07/21 mcg/actuation HFA aerosol inhaler fluticasone propionate 50 2 inh inhalation BID #180 ea 05/07/21 mcg/actuation blister powder for inhalation (Flovent Diskus) hydroxyzine HCl 50 mg tablet 100 mg PO QHS #180 tabs 05/07/21 omeprazole 40 mg capsule,delayed 40 mg PO DAILY #90 tab-caps 05/07/21 release ondansetron HCl 4 mg tablet 4 mg PO Q8H PRN nausea and 07/08/21 vomiting #60 tabs baclofen 10 mg tablet 10 mg PO TID PRN back pain #90 tabs 08/10/21 clonazepam 0.5 mg disintegrating 0.5 - 1 mg PO TID #112 tabs 09/09/21 tablet Allergies Allergy/AdvReac Type Severity Reaction Status Date / Time shellfish derived Allergy Unknown Verified 09/30/21 08:10 adhesive Allergy Verified 09/30/21 08:10 divalproex sodium Allergy Skin Rash Verified 09/30/21 08:10 [From Depakote] topiramate Allergy Verified 09/30/21 08:10 varenicline tartrate Allergy Verified 09/30/21 08:10 [From Chantix] venlafaxine AdvReac Intermediate Diarrhea Verified 09/30/21 08:10 and increased headaches oxycodone AdvReac Mild nausea Verified 09/30/21 08:10 General Stated Complaint: Nk/Back Pain RED: 4 Review of Systems All systems reviewed & are unremarkable except as noted in HPI and below ENT Ears, Nose, Mouth, and Throat: Denies neck pain Musculoskeletal Musculoskeletal: Reports back pain, Denies muscle weakness, Denies neck pain, Reports radiating pain into limb (bilatreral posterior) and Reports stiffness PFSH All Active Problems (Updated 09/30/21 @ 08:33 by Sofiya Lindsey) Lumbar back sprain (Acute) Hyperlipidemia (Chronic) Bipolar disorder (Chronic) PTSD (post-traumatic stress disorder) (Chronic) Generalized anxiety disorder (Chronic) 07/2021-urine negative for clonazepam x2. No further clonazepam from this office. Mild persistent asthma (Chronic) IBS (irritable bowel syndrome) (Chronic) Degenerative joint disease of cervical spine (Chronic) Chronic low back pain (Chronic) Fibromyalgia (Chronic) Insomnia (Chronic) Dysmenorrhea (Chronic) Rosacea (Chronic) GERD (gastroesophageal reflux disease) (Chronic) Cigarette smoker (Acute) Obesity (Chronic) Herpes simplex infection of skin (Acute) Medical History (Updated 09/30/21 @ 08:33 by Sofiya Lindsey) Prediabetes Suicide attempt At ages [age] Surgical History H/O LEEP History of esophagogastroduodenoscopy (EGD) (01/12/13) S/P cholecystectomy S/P colonoscopy (01/12/13) S/P tubal ligation Family History Mother , At 66 from cirrhosis Diabetes Essential hypertension Depression Heart disease Asthma Liver disease Father No problems noted. Brother No problems noted. Brother Lung cancer Sister , At 32 No problems noted. Sister DJD (degenerative joint disease) Asthma Sister No problems noted. Sister No problems noted. Son No problems noted. Daughter No problems noted. Maternal Grandfather No problems noted. Maternal Grandmother Breast cancer Paternal Grandfather Leukemia Paternal Grandmother Pancreatic cancer Social History Smoking/Tobacco Use Status: Current every day Tobacco Type: cigarettes Tobacco: How many years used: 26 Quit status: considering quitting Smoking risk assessment performed?: Yes Alcohol Intake: former Drug use: Occasionally Substance use type: marijuana Details: last used 11.27.20 Household members: spouse and other Details: spouse Brandan Number of Children: 2 current occupation: Disabled Pets and animals: Yes (3 dogs) What is your relationship status?: Panel score (0-1 are the most socially isolated patients): 1 What type of physical activity do you participate in: walking and independent ambulation Duration: 15-30 minutes/day Frequency: 3-4 times per week Seatbelt use: always Do you feel safe at home: Yes Do you feel safe in your relationship?: Yes Female Reproductive History Menstrual control method: permanent sterilization History History 5 Para Hx # Term Pregnancies 2 Multiple births Hx # Pregnancies Ectopic pregnancies AB induced Hx Number of Living Children 2 AB spontaneous Course Vital Signs Vital signs: Vital Signs Temperature 36.6 C 09/30/21 08:06 Pulse 72 09/30/21 08:06 Respiratory Rate 14 09/30/21 08:06 Blood Pressure 146/102 H 09/30/21 08:06 Pulse Oximetry 97 09/30/21 08:06 Temperature 36.6 C 09/30/21 08:06 Temperature Source Temporal Artery Scan 09/30/21 08:06 Pulse 72 09/30/21 08:06 Respiratory Rate 14 09/30/21 08:06 Respiratory Effort Non-Labored 09/30/21 08:09 Blood Pressure 146/102 H 09/30/21 08:06 Blood Pressure Position Sitting 09/30/21 08:06 Pulse Oximetry 97 09/30/21 08:06 Oxygen Delivery Method Room Air 09/30/21 08:06 Oxygen Flow Rate 0 09/30/21 08:06 Pain Level 9 09/30/21 08:12
[2021-09-30] MEDS: MORPHine 4 MG/ML SYR IM (08:38)
[2021-09-30 08:41] VITALS: BP 142/76; PULSE 66; RESP 16; O2SAT 99
== END 2021-09-30 09:02 | disposition home or self-care (01) ==
PROVIDERS: Emergency Provider Registered Nurse Emergency; PCP Nurse Practitioner Family
DX: S33.5XXA Sprain of ligaments of lumbar spine, initial encounter (principal); X58.XXXA Exposure to other specified factors, initial encounter
CPT/HCPCS: 96372; 99284; 99283; J2270

== ENCOUNTER 2021-10-14 11:08 | Emergency (ER) | payer MEDICARE, MEDICAID, SELFPAY ==
[2021-10-14 11:12] VITALS: BP 141/90; PULSE 87; RESP 16; TEMP 36.9; O2SAT 96
[2021-10-14] MEDS: Lidocaine/Epinephri/Tetracaine Topical Gel 3 ML TP (11:43)
[2021-10-14] MEDS: Lidocaine/Epinephri/Tetracaine Topical Gel 3 ML (11:43)
--- NOTE | 2021-10-14 11:43 | W.ED.GENAD ---
Discharge Plan Disposition Patient Disposition: HOME Condition: Stable Discharge Details Clinical Impression: Pilonidal abscess Primary Care Provider: Becky Jenkins ED Provider: Keith Hernandez Home Meds and New Rx's Prescriptions: Continued acetaminophen [Tylenol Extra Strength] 500 mg tablet 1,000 mg PO Q6H PRN (DME) Aerochamber MV Spacer See Rx Instructions .ROUTE .MEDSUPPLY Qty: 1 0RF Rx Instructions: Use with albuterol inhaler Flovent Diskus 50 mcg/actuation blister with device 2 inh Inhalation BID Qty: 180 4RF albuterol sulfate [ProAir HFA] 90 mcg/actuation HFA aerosol inhaler 2 puff Inhalation Q6H PRN (Reason: shortness of breath or wheezing) Qty: 18 4RF albuterol sulfate 1.25 mg/3 mL solution for nebulization 1.25 mg Inhalation Q6H PRN (Reason: shortness of breath or wheezing) Qty: 90 4RF fluticasone propionate 110 mcg/actuation HFA aerosol inhaler 1 inh inhalation BID Qty: 3 4RF Rx Instructions: 1 puff twice a day, use spacer with this omeprazole 40 mg capsule,delayed release(DR/EC) 40 mg PO DAILY Qty: 90 4RF melatonin 10 mg capsule 10 mg PO HS PRN gabapentin 600 mg tablet 600 mg PO TID Qty: 270 4RF ondansetron HCl 4 mg tablet 4 mg PO Q8H PRN (Reason: nausea and vomiting) Qty: 60 1RF baclofen 10 mg tablet 10 mg PO TID PRN (Reason: back pain) Qty: 90 2RF clonazepam 0.5 mg tablet,disintegrating 0.5 - 1 mg PO TID Qty: 112 2RF Rx Instructions: Take 1 tab in morning and afternoon and 2 tabs at bedtime hydroxyzine HCl 50 mg tablet 100 mg PO QHS Qty: 180 4RF Discharge Instructions Instructions: Abscess (ED) Additional Instructions: Your wound was packed today with gauze. Please leave this gauze intact and keep dressing in place until follow-up. Please follow-up tomorrow at 9 AM at [facility] surgical clinic. Please take acetaminophen (tylenol) - 650mg every 6 hours by mouth as needed for pain. Please contact your primary care physician to arrange follow-up. Return to the ER immediately for any worsening or new concerning symptoms. Referrals: [facility] [Provider Group] Medical Decision Making 1310 --41-year-old female with chronic back pain, here with painful swollen mass superior gluteal cleft just right of midline. Bedside [id number] ultrasound was performed and small 2 cm x 2 cm fluid collection noted approximately 1 cm depth. 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 I called and spoke with on-call general surgeon, Dr. Larson, discussed ED presentation course including prior MRI and he recommends incision and drainage and close outpatient follow-up. Patient be scheduled for appointment tomorrow at 9 AM in the clinic. Abscess incision and drainage was performed. Small collection of purulent pus was drained. The cavity was irrigated with sterile saline. Wound packed lightly to allow for continued drainge. No indication for antibiotics at this time as no associated cellulitis or immunosuppression. HPI General Date/Time Provider Initiated Documentation: 10/14/21 11:16. Related Data Home Medications Medication Instructions Recorded Confirmed acetaminophen 500 mg tablet 1,000 mg PO Q6H PRN 08/29/18 10/14/21 (Tylenol Extra Strength) inhalational spacing device #1 ea 05/05/20 09/30/21 (Aerochamber MV spacer) melatonin 10 mg capsule 10 mg PO HS PRN 09/23/20 10/14/21 gabapentin 600 mg tablet 600 mg PO TID #270 tabs 04/08/21 10/14/21 albuterol sulfate 1.25 mg/3 mL 1.25 mg (3 mL) inhalation Q6H PRN 05/07/21 10/14/21 solution for nebulization shortness of breath or wheezing #90 mL albuterol sulfate 90 mcg/actuation 2 puff inhalation Q6H PRN 05/07/21 10/14/21 aerosol inhaler (ProAir HFA) shortness of breath or wheezing #18 grams fluticasone propionate 110 1 inh inhalation BID #3 ea 05/07/21 10/14/21 mcg/actuation HFA aerosol inhaler fluticasone propionate 50 2 inh inhalation BID #180 ea 05/07/21 10/14/21 mcg/actuation blister powder for inhalation (Flovent Diskus) omeprazole 40 mg capsule,delayed 40 mg PO DAILY #90 tab-caps 05/07/21 10/14/21 release ondansetron HCl 4 mg tablet 4 mg PO Q8H PRN nausea and 07/08/21 10/14/21 vomiting #60 tabs baclofen 10 mg tablet 10 mg PO TID PRN back pain #90 tabs 08/10/21 10/14/21 clonazepam 0.5 mg disintegrating 0.5 - 1 mg PO TID #112 tabs 09/09/21 10/14/21 tablet hydroxyzine HCl 50 mg tablet 100 mg PO QHS #180 tabs 10/08/21 10/14/21 Previous Rx's Medication Instructions Recorded inhalational spacing device #1 ea 05/05/20 (Aerochamber MV spacer) gabapentin 600 mg tablet 600 mg PO TID #270 tabs 04/08/21 albuterol sulfate 1.25 mg/3 mL 1.25 mg (3 mL) inhalation Q6H PRN 05/07/21 solution for nebulization shortness of breath or wheezing #90 mL albuterol sulfate 90 mcg/actuation 2 puff inhalation Q6H PRN 05/07/21 aerosol inhaler (ProAir HFA) shortness of breath or wheezing #18 grams fluticasone propionate 110 1 inh inhalation BID #3 ea 05/07/21 mcg/actuation HFA aerosol inhaler fluticasone propionate 50 2 inh inhalation BID #180 ea 05/07/21 mcg/actuation blister powder for inhalation (Flovent Diskus) omeprazole 40 mg capsule,delayed 40 mg PO DAILY #90 tab-caps 05/07/21 release ondansetron HCl 4 mg tablet 4 mg PO Q8H PRN nausea and 07/08/21 vomiting #60 tabs baclofen 10 mg tablet 10 mg PO TID PRN back pain #90 tabs 08/10/21 clonazepam 0.5 mg disintegrating 0.5 - 1 mg PO TID #112 tabs 09/09/21 tablet hydroxyzine HCl 50 mg tablet 100 mg PO QHS #180 tabs 10/08/21 Allergies Allergy/AdvReac Type Severity Reaction Status Date / Time shellfish derived Allergy Unknown Verified 10/14/21 11:17 adhesive Allergy Verified 10/14/21 11:17 divalproex sodium Allergy Skin Rash Verified 10/14/21 11:17 [From Depakote] topiramate Allergy Verified 10/14/21 11:17 varenicline tartrate Allergy Verified 10/14/21 11:17 [From Chantix] venlafaxine AdvReac Intermediate Diarrhea Verified 10/14/21 11:17 and increased headaches oxycodone AdvReac Mild nausea Verified 10/14/21 11:17 General Stated Complaint: Nk/Back Pain RED: 3 PFSH All Active Problems (Updated 10/14/21 @ 13:15 by Keith Hernandez MD) Lumbar back sprain (Acute) Pilonidal abscess (Acute) Hyperlipidemia (Chronic) Bipolar disorder (Chronic) PTSD (post-traumatic stress disorder) (Chronic) Generalized anxiety disorder (Chronic) 07/2021-urine negative for clonazepam x2. No further clonazepam from this office. Mild persistent asthma (Chronic) IBS (irritable bowel syndrome) (Chronic) Degenerative joint disease of cervical spine (Chronic) Chronic low back pain (Chronic) Fibromyalgia (Chronic) Insomnia (Chronic) Dysmenorrhea (Chronic) Rosacea (Chronic) GERD (gastroesophageal reflux disease) (Chronic) Cigarette smoker (Acute) Obesity (Chronic) Herpes simplex infection of skin (Acute) Medical History (Updated 10/14/21 @ 13:15 by Keith Hernandez MD) Prediabetes Suicide attempt At ages [age] Surgical History H/O LEEP History of esophagogastroduodenoscopy (EGD) (01/12/13) S/P cholecystectomy S/P colonoscopy (01/12/13) S/P tubal ligation Family History Mother , At 66 from cirrhosis Diabetes Essential hypertension Depression Heart disease Asthma Liver disease Father No problems noted. Brother No problems noted. Brother Lung cancer Sister , At 32 No problems noted. Sister DJD (degenerative joint disease) Asthma Sister No problems noted. Sister No problems noted. Son No problems noted. Daughter No problems noted. Maternal Grandfather No problems noted. Maternal Grandmother Breast cancer Paternal Grandfather Leukemia Paternal Grandmother Pancreatic cancer Social History Smoking/Tobacco Use Status: Current every day Tobacco Type: cigarettes Tobacco: How many years used: 26 Quit status: considering quitting Smoking risk assessment performed?: Yes Alcohol Intake: former Drug use: Daily Substance use type: marijuana Details: last used 11.27.20 Household members: spouse and other Details: spouse Brandan Number of Children: 2 current occupation: Disabled Pets and animals: Yes (3 dogs) What is your relationship status?: Panel score (0-1 are the most socially isolated patients): 1 What type of physical activity do you participate in: walking and independent ambulation Duration: 15-30 minutes/day Frequency: 3-4 times per week Seatbelt use: always Do you feel safe at home: Yes Do you feel safe in your relationship?: Yes Female Reproductive History Menstrual control method: permanent sterilization History History 5 Para Hx # Term Pregnancies 2 Multiple births Hx # Pregnancies Ectopic pregnancies AB induced Hx Number of Living Children 2 AB spontaneous Course Vital Signs Vital signs: Vital Signs Temperature 36.9 C 10/14/21 11:12 Pulse 87 10/14/21 11:12 Respiratory Rate 16 10/14/21 11:12 Blood Pressure 141/90 H 10/14/21 11:12 Pulse Oximetry 96 10/14/21 11:12 Temperature 36.9 C 10/14/21 11:12 Temperature Source Temporal Artery Scan 10/14/21 11:12 Pulse 87 10/14/21 11:12 Respiratory Rate 16 10/14/21 11:12 Respiratory Effort 10/14/21 11:16 Blood Pressure 141/90 H 10/14/21 11:12 Blood Pressure Position Sitting 10/14/21 11:12 Pulse Oximetry 96 10/14/21 11:12 Oxygen Delivery Method Room Air 10/14/21 11:12 Oxygen Flow Rate 0 10/14/21 11:12 Pain Level 10 10/14/21 11:12 Procedures Abscess I/D Site: Other (pilonidal) Side (if applicable): Right Local Anesthetic: Lidocaine 1% Amount of anesthesia used (mL): 5 Technique: Incised with #11 Blade Amount of fluid expressed (mL): 4 Irrigation: Yes Packing used?: Plain Complications: Pain
[2021-10-14] MEDS: Lidocaine 1% Pres-Free W/EPI 1/200,000 30 ML VIAL IJ (13:00)
[2021-10-14] MEDS: oxyCODONE 5 MG TAB PO (13:11)
[2021-10-14 14:13] VITALS: BP 132/80; PULSE 70; RESP 18; TEMP 36.8; O2SAT 97
== END 2021-10-14 14:14 | disposition home or self-care (01) ==
PROVIDERS: Emergency Provider Student in an Organized Health Care Education/Training Program; PCP Nurse Practitioner Family
DX: L05.01 Pilonidal cyst with abscess (principal)
CPT/HCPCS: 10060

== ENCOUNTER → 2021-10-15 08:54 | Outpatient (BNVA) | payer MEDICARE, MEDICAID, SELFPAY | PROVIDERS: PCP Nurse Practitioner Family; Referring Provider Nurse Practitioner Family; Visit Provider Physical Therapy Assistant | DX: M79.7 Fibromyalgia (principal); M54.50 Low back pain, unspecified; L02.31 Cutaneous abscess of buttock | CPT/HCPCS: 99214 ==

== ENCOUNTER → 2021-10-19 11:15 | Outpatient (BNVA) | payer MEDICARE, MEDICAID, SELFPAY | PROVIDERS: PCP Nurse Practitioner Family; Referring Provider Nurse Practitioner Family; Visit Provider Physical Therapy Assistant | DX: L02.31 Cutaneous abscess of buttock (principal) | CPT/HCPCS: 99212 ==

== ENCOUNTER 2022-01-01 13:46 | Emergency (ER) | payer MEDICARE, MEDICAID, SELFPAY ==
[2022-01-01 13:51] VITALS: BP 131/80; PULSE 94; RESP 16; TEMP 36.7; O2SAT 96
--- NOTE | 2022-01-01 14:15 | DI.RAD_ITS ---
Exam(s) XR ANKLE RT COMPLETE XR TIB/FIB RT EXAM: XR ANKLE RT COMPLETE CLINICAL HISTORY: 3 weeks ankle pain TECHNIQUE: COMPARISON: CR XR TIB/FIB RT from 01/01/2022 FINDINGS: Two views of the leg and three views of the ankle were obtained. The ankle mortise is well maintaine d. No bony or soft tissue abnormality seen. IMPRESSION: RADIATION DOSE DELIVERED: Total DLP
--- NOTE | 2022-01-01 14:19 | DI.RAD_ITS ---
Exam(s) XR KNEE RT 3V AP,LAT,JAZIEL EXAM: XR KNEE RT 3V AP,LAT,JAZIEL CLINICAL HISTORY: 3 weeks knee pain TECHNIQUE: COMPARISON: CR LEFT KNEE 3 VIEW COMPLETE from 11/30/2011 FINDINGS: Three views were obtained. No significant joint effusion seen on the lateral view. No bony or soft tissue abnormality seen. IMPRESSION: RADIATION DOSE DELIVERED: Total DLP
--- NOTE | 2022-01-01 14:24 | ED.GENADUL_ITS ---
Discharge Plan Disposition Patient Disposition: HOME Condition: Stable Discharge Details Clinical Impression: Leg pain Primary Care Provider: Becky Jenkins ED Provider: Tito Townsend Home Meds and New Rx's Prescriptions: New lidocaine [Lidoderm] 5 % adhesive patch,medicated 1 patch topical DAILY PRNQty: 15 0RF Rx Instructions: prn back pain/leg pain; leave on most painful area for up to 12 hrs cyclobenzaprine 5 mg tablet 5 mg PO QHS PRN (Reason: muscle spasm) Qty: 7 0RF No Action acetaminophen [Tylenol Extra Strength] 500 mg tablet 1,000 mg PO Q6H PRN (DME) Aerochamber MV Spacer See Rx Instructions .ROUTE .MEDSUPPLY Qty: 1 0RF Rx Instructions: Use with albuterol inhaler Flovent Diskus 50 mcg/actuation blister with device 2 inh Inhalation BID Qty: 180 4RF albuterol sulfate [ProAir HFA] 90 mcg/actuation HFA aerosol inhaler 2 puff Inhalation Q6H PRN (Reason: shortness of breath or wheezing) Qty: 18 4RF albuterol sulfate 1.25 mg/3 mL solution for nebulization 1.25 mg Inhalation Q6H PRN (Reason: shortness of breath or wheezing) Qty: 90 4RF fluticasone propionate 110 mcg/actuation HFA aerosol inhaler 1 inh inhalation BID Qty: 3 4RF Rx Instructions: 1 puff twice a day, use spacer with this omeprazole 40 mg capsule,delayed release(DR/EC) 40 mg PO DAILY Qty: 90 4RF melatonin 10 mg capsule 10 mg PO HS PRN amoxicillin 500 mg capsule 1,000 mg PO TID Qty: 42 0RF doxycycline hyclate 100 mg capsule 100 mg PO BID Qty: 14 0RF benzonatate 100 mg capsule 100 mg PO TID PRN (Reason: cough) Qty: 14 0RF (DME) nebulizers Misc See Rx Instructions .Route Qty: 1 0RF Rx Instructions: As directed gabapentin 600 mg tablet 600 mg PO TID Qty: 270 4RF hydroxyzine HCl 50 mg tablet 100 mg PO QHS Qty: 180 4RF baclofen 10 mg tablet 10 mg PO TID PRN (Reason: back pain) Qty: 90 2RF ondansetron HCl 4 mg tablet 4 mg PO Q8H PRN (Reason: nausea and vomiting) Qty: 60 1RF clonazepam 0.5 mg tablet,disintegrating 0.5 - 1 mg PO TID Qty: 112 2RF Rx Instructions: Take 1 tab in morning and afternoon and 2 tabs at bedtime nicotine (polacrilex) 4 mg lozenge 4 mg buccal .Q2-4H PRN (Reason: nicotine cravings) Qty: 108 3RF Discharge Instructions Instructions: Leg Pain (ED) Additional Instructions: Please follow-up with your primary care physician. Please return to the emergency department for any worsening symptoms Medical Decision Making 41-year-old female presents with atraumatic right leg discomfort mainly in her right knee and right ankle over the past 3 weeks, is now ambulating with a cane. No signs of trauma range of motion intact in all joints, soft compartments, warm well perfused extremities DP pulse intact sensation intact. Consider osteoarthritis versus peripheral neuropathy versus less likely sciatica versus radiculopathy versus less likely fracture or dislocation. Will obtain screening x-rays. Analgesia anti-inflammatory team done advised 16: 17 patient resting comfortably no acute distress ambulatory. X-rays unremarkable. Will be given meds for home home care instructions and return precautions HPI General Date/Time Provider Initiated Documentation: 01/01/22 13:54 . HPI Narrative: 41-year-old female history of hyperlipidemia obesity borderline diabetic, presents with 3 weeks of atraumatic right knee and right ankle discomfort, has been walking with a cane over the past several weeks, denies falls fevers chills or any injuries. Related Data Home Medications Medication Instructions Recorded Confirmed acetaminophen 500 mg tablet 1,000 mg PO Q6H PRN 08/29/18 01/01/22 (Tylenol Extra Strength) inhalational spacing device #1 ea 05/05/20 01/01/22 (Aerochamber MV spacer) melatonin 10 mg capsule 10 mg PO HS PRN 09/23/20 01/01/22 gabapentin 600 mg tablet 600 mg PO TID #270 tabs 04/08/21 01/01/22 albuterol sulfate 1.25 mg/3 mL 1.25 mg (3 mL) inhalation Q6H PRN 05/07/21 01/01/22 solution for nebulization shortness of breath or wheezing #90 mL albuterol sulfate 90 mcg/actuation 2 puff inhalation Q6H PRN 05/07/21 01/01/22 aerosol inhaler (ProAir HFA) shortness of breath or wheezing #18 grams fluticasone propionate 110 1 inh inhalation BID #3 ea 05/07/21 01/01/22 mcg/actuation HFA aerosol inhaler fluticasone propionate 50 2 inh inhalation BID #180 ea 05/07/21 01/01/22 mcg/actuation blister powder for inhalation (Flovent Diskus) omeprazole 40 mg capsule,delayed 40 mg PO DAILY #90 tab-caps 05/07/21 01/01/22 release hydroxyzine HCl 50 mg tablet 100 mg PO QHS #180 tabs 10/08/21 01/01/22 baclofen 10 mg tablet 10 mg PO TID PRN back pain #90 tabs 11/18/21 01/01/22 ondansetron HCl 4 mg tablet 4 mg PO Q8H PRN nausea and 12/02/21 01/01/22 vomiting #60 tabs amoxicillin 500 mg capsule 1,000 mg PO TID #42 caps 12/08/21 01/01/22 benzonatate 100 mg capsule 100 mg PO TID PRN cough #14 caps 12/08/21 01/01/22 doxycycline hyclate 100 mg capsule 100 mg PO BID #14 caps 12/08/21 01/01/22 nebulizers #1 ea 12/08/21 01/01/22 clonazepam 0.5 mg disintegrating 0.5 - 1 mg PO TID #112 tabs 12/09/21 01/01/22 tablet nicotine (polacrilex) 4 mg buccal 4 mg buccal .Q2-4H PRN nicotine 12/25/21 01/01/22 lozenge cravings #108 ea cyclobenzaprine 5 mg tablet 5 mg PO QHS PRN muscle spasm #7 01/01/22 tabs lidocaine 5 % topical patch 1 patch topical DAILY PRN #15 ea 01/01/22 (Lidoderm) Previous Rx's Medication Instructions Recorded inhalational spacing device #1 ea 05/05/20 (Aerochamber MV spacer) gabapentin 600 mg tablet 600 mg PO TID #270 tabs 04/08/21 albuterol sulfate 1.25 mg/3 mL 1.25 mg (3 mL) inhalation Q6H PRN 05/07/21 solution for nebulization shortness of breath or wheezing #90 mL albuterol sulfate 90 mcg/actuation 2 puff inhalation Q6H PRN 05/07/21 aerosol inhaler (ProAir HFA) shortness of breath or wheezing #18 grams fluticasone propionate 110 1 inh inhalation BID #3 ea 05/07/21 mcg/actuation HFA aerosol inhaler fluticasone propionate 50 2 inh inhalation BID #180 ea 05/07/21 mcg/actuation blister powder for inhalation (Flovent Diskus) omeprazole 40 mg capsule,delayed 40 mg PO DAILY #90 tab-caps 05/07/21 release hydroxyzine HCl 50 mg tablet 100 mg PO QHS #180 tabs 10/08/21 baclofen 10 mg tablet 10 mg PO TID PRN back pain #90 tabs 11/18/21 ondansetron HCl 4 mg tablet 4 mg PO Q8H PRN nausea and 12/02/21 vomiting #60 tabs amoxicillin 500 mg capsule 1,000 mg PO TID #42 caps 12/08/21 benzonatate 100 mg capsule 100 mg PO TID PRN cough #14 caps 12/08/21 doxycycline hyclate 100 mg capsule 100 mg PO BID #14 caps 12/08/21 nebulizers #1 ea 12/08/21 clonazepam 0.5 mg disintegrating 0.5 - 1 mg PO TID #112 tabs 12/09/21 tablet nicotine (polacrilex) 4 mg buccal 4 mg buccal .Q2-4H PRN nicotine 12/25/21 lozenge cravings #108 ea cyclobenzaprine 5 mg tablet 5 mg PO QHS PRN muscle spasm #7 01/01/22 tabs lidocaine 5 % topical patch 1 patch topical DAILY PRN #15 ea 01/01/22 (Lidoderm) Allergies Allergy/AdvReac Type Severity Reaction Status Date / Time shellfish derived Allergy Unknown Verified 01/01/22 13:57 adhesive Allergy Verified 01/01/22 13:57 divalproex sodium Allergy Skin Rash Verified 01/01/22 13:57 [From Depakote] topiramate Allergy Verified 01/01/22 13:57 varenicline tartrate Allergy Verified 01/01/22 13:57 [From Chantix] venlafaxine AdvReac Intermediate Diarrhea Verified 01/01/22 13:57 and increased headaches oxycodone AdvReac Mild nausea Verified 01/01/22 13:57 General Stated Complaint: Orthopedic RED: 4 Review of Systems Narrative: Review of Systems Constitutional: negative Eyes: negative ENT: negative Cardiovascular: negative Respiratory: negative Gastrointestinal: negative : negative Musculoskeletal: Knee pain, ankle pain Skin: negative Neurologic: negative Psych: negative PFSH All Active Problems (Updated 01/01/22 @ 16:17 by Tito Townsend MD) Leg pain (Acute) Hyperlipidemia (Chronic) Bipolar disorder (Chronic) PTSD (post-traumatic stress disorder) (Chronic) Generalized anxiety disorder (Chronic) 07/2021-urine negative for clonazepam x2. No further clonazepam from this office. Mild persistent asthma (Chronic) IBS (irritable bowel syndrome) (Chronic) Degenerative joint disease of cervical spine (Chronic) Chronic low back pain (Chronic) Fibromyalgia (Chronic) Insomnia (Chronic) Dysmenorrhea (Chronic) Rosacea (Chronic) GERD (gastroesophageal reflux disease) (Chronic) Cigarette smoker (Acute) Obesity (Chronic) Herpes simplex infection of skin (Acute) Medical History Prediabetes Suicide attempt At ages [age] Surgical History H/O LEEP History of esophagogastroduodenoscopy (EGD) (01/12/13) S/P cholecystectomy S/P colonoscopy (01/12/13) S/P tubal ligation Family History Mother , At 66 from cirrhosis Diabetes Essential hypertension Depression Heart disease Asthma Liver disease Father No problems noted. Brother No problems noted. Brother Lung cancer Sister , At 32 No problems noted. Sister DJD (degenerative joint disease) Asthma Sister No problems noted. Sister No problems noted. Son No problems noted. Daughter No problems noted. Maternal Grandfather No problems noted. Maternal Grandmother Breast cancer Paternal Grandfather Leukemia Paternal Grandmother Pancreatic cancer Social History Smoking/Tobacco Use Status: Current every day Tobacco Type: cigarettes Tobacco: How many years used: 26 Quit status: considering quitting Smoking risk assessment performed?: Yes Alcohol Intake: former Drug use: Daily Substance use type: marijuana Details: last used 11.27.20 Household members: spouse and other Details: spouse Brandan Number of Children: 2 current occupation: Disabled Pets and animals: Yes (3 dogs) What is your relationship status?: Panel score (0-1 are the most socially isolated patients): 1 What type of physical activity do you participate in: walking and independent ambulation Duration: 15-30 minutes/day Frequency: 3-4 times per week Seatbelt use: always Do you feel safe at home: Yes Do you feel safe in your relationship?: Yes Female Reproductive History Menstrual control method: permanent sterilization History History 5 Para Hx # Term Pregnancies 2 Multiple births Hx # Pregnancies Ectopic pregnancies AB induced Hx Number of Living Children 2 AB spontaneous Exam Narrative Exam Narrative: Physical Examination General: alert, awake, cooperative, resting comfortably, no acute distress HEENT: normocephalic, atraumatic; PERRL, EOM intact, conjunctiva normal; no nasal discharge; moist mucous membranes, oral and pharyngeal mucosa normal, tolerating secretions Neck: supple, trachea midline; full ROM Chest: normal to inspection Respiratory: normal respiratory effort, speaking in full sentences, clear to auscultation, no wheezing, rales or rhonchi Cardiac: regular rate, regular rhythm, S1S2 intact, no murmurs rubs or gallops GI: abdomen soft, non-tender, non-distended; no palpable mass or hepatosplenomegaly Skin: no lesions, rashes or trauma appreciated Neuro: AAOx3, normal speech, moving all extremities Extremities: Full range of motion right knee, as well as ankle, ambulatory without assistance, soft compartments, sensation intact, DP pulse intact, warm well perfused, no signs of joint laxity or effusion. Psych: Appropriate mood and affect Course Vital Signs Vital signs: Vital Signs Temperature 36.7 C 01/01/22 13:51 Pulse 94 H 01/01/22 13:51 Respiratory Rate 16 01/01/22 13:51 Blood Pressure 131/80 01/01/22 13:51 Pulse Oximetry 96 01/01/22 13:51 Temperature 36.7 C 01/01/22 13:51 Temperature Source Skin 01/01/22 13:51 Pulse 94 H 01/01/22 13:51 Respiratory Rate 16 01/01/22 13:51 Respiratory Effort 01/01/22 13:55 Blood Pressure 131/80 01/01/22 13:51 Blood Pressure Position Sitting 01/01/22 13:51 Pulse Oximetry 96 01/01/22 13:51 Oxygen Delivery Method Room Air 01/01/22 13:51 Oxygen Flow Rate 0 01/01/22 13:51 Pain Level 8 01/01/22 13:51
[2022-01-01] MEDS: Dexamethasone 10 MG/ML VIAL IM (14:39)
[2022-01-01] MEDS: Ketorolac 15 MG/ML VIAL IM (14:39)
[2022-01-01] MEDS: Cyclobenzaprine 10 MG TAB PO (14:39)
== END 2022-01-01 16:31 | disposition home or self-care (01) ==
PROVIDERS: Emergency Provider Emergency Medicine; PCP Nurse Practitioner Family
DX: M25.571 Pain in right ankle and joints of right foot (principal); M25.561 Pain in right knee; E66.9 Obesity, unspecified; F17.210 Nicotine dependence, cigarettes, uncomplicated
CPT/HCPCS: 73562; 96372; 99284; 73590; 73610; J1100; J1885

== ENCOUNTER 2022-01-11 11:34 | Emergency (ER) | payer MEDICARE, MEDICAID, SELFPAY ==
[2022-01-11 11:53] VITALS: BP 139/76; PULSE 95; RESP 18; TEMP 37
--- NOTE | 2022-01-11 12:15 | ED.GENADUL_ITS ---
Discharge Plan Discharge Details Chief Complaint: GenMedical Primary Care Provider: Becky Jenkins ED Provider: Provider,Temporary Home Meds and New Rx's Prescriptions: No Action acetaminophen [Tylenol Extra Strength] 500 mg tablet 1,000 mg PO Q6H PRN (DME) Aerochamber MV Spacer See Rx Instructions .ROUTE .MEDSUPPLY Qty: 1 0RF Rx Instructions: Use with albuterol inhaler Flovent Diskus 50 mcg/actuation blister with device 2 inh Inhalation BID Qty: 180 4RF albuterol sulfate [ProAir HFA] 90 mcg/actuation HFA aerosol inhaler 2 puff Inhalation Q6H PRN (Reason: shortness of breath or wheezing) Qty: 18 4RF albuterol sulfate 1.25 mg/3 mL solution for nebulization 1.25 mg Inhalation Q6H PRN (Reason: shortness of breath or wheezing) Qty: 90 4RF fluticasone propionate 110 mcg/actuation HFA aerosol inhaler 1 inh inhalation BID Qty: 3 4RF Rx Instructions: 1 puff twice a day, use spacer with this omeprazole 40 mg capsule,delayed release(DR/EC) 40 mg PO DAILY Qty: 90 4RF melatonin 10 mg capsule 10 mg PO HS PRN amoxicillin 500 mg capsule 1,000 mg PO TID Qty: 42 0RF doxycycline hyclate 100 mg capsule 100 mg PO BID Qty: 14 0RF benzonatate 100 mg capsule 100 mg PO TID PRN (Reason: cough) Qty: 14 0RF (DME) nebulizers Misc See Rx Instructions .Route Qty: 1 0RF Rx Instructions: As directed gabapentin 600 mg tablet 600 mg PO TID Qty: 270 4RF hydroxyzine HCl 50 mg tablet 100 mg PO QHS Qty: 180 4RF baclofen 10 mg tablet 10 mg PO TID PRN (Reason: back pain) Qty: 90 2RF ondansetron HCl 4 mg tablet 4 mg PO Q8H PRN (Reason: nausea and vomiting) Qty: 60 1RF clonazepam 0.5 mg tablet,disintegrating 0.5 - 1 mg PO TID Qty: 112 2RF Rx Instructions: Take 1 tab in morning and afternoon and 2 tabs at bedtime nicotine (polacrilex) 4 mg lozenge 4 mg buccal .Q2-4H PRN (Reason: nicotine cravings) Qty: 108 3RF lidocaine [Lidoderm] 5 % adhesive patch,medicated 1 patch topical DAILY PRNQty: 15 0RF Rx Instructions: prn back pain/leg pain; leave on most painful area for up to 12 hrs cyclobenzaprine 5 mg tablet 5 mg PO QHS PRN (Reason: muscle spasm) Qty: 7 0RF HPI General Date/Time Provider Initiated Documentation: 01/11/22 12:07 . Related Data Home Medications Medication Instructions Recorded Confirmed acetaminophen 500 mg tablet 1,000 mg PO Q6H PRN 08/29/18 01/01/22 (Tylenol Extra Strength) inhalational spacing device #1 ea 05/05/20 01/01/22 (Aerochamber MV spacer) melatonin 10 mg capsule 10 mg PO HS PRN 09/23/20 01/01/22 gabapentin 600 mg tablet 600 mg PO TID #270 tabs 04/08/21 01/01/22 albuterol sulfate 1.25 mg/3 mL 1.25 mg (3 mL) inhalation Q6H PRN 05/07/21 01/01/22 solution for nebulization shortness of breath or wheezing #90 mL albuterol sulfate 90 mcg/actuation 2 puff inhalation Q6H PRN 05/07/21 01/01/22 aerosol inhaler (ProAir HFA) shortness of breath or wheezing #18 grams fluticasone propionate 110 1 inh inhalation BID #3 ea 05/07/21 01/01/22 mcg/actuation HFA aerosol inhaler fluticasone propionate 50 2 inh inhalation BID #180 ea 05/07/21 01/01/22 mcg/actuation blister powder for inhalation (Flovent Diskus) omeprazole 40 mg capsule,delayed 40 mg PO DAILY #90 tab-caps 05/07/21 01/01/22 release hydroxyzine HCl 50 mg tablet 100 mg PO QHS #180 tabs 10/08/21 01/01/22 baclofen 10 mg tablet 10 mg PO TID PRN back pain #90 tabs 11/18/21 01/01/22 ondansetron HCl 4 mg tablet 4 mg PO Q8H PRN nausea and 12/02/21 01/01/22 vomiting #60 tabs amoxicillin 500 mg capsule 1,000 mg PO TID #42 caps 12/08/21 01/01/22 benzonatate 100 mg capsule 100 mg PO TID PRN cough #14 caps 12/08/21 01/01/22 doxycycline hyclate 100 mg capsule 100 mg PO BID #14 caps 12/08/21 01/01/22 nebulizers #1 ea 12/08/21 01/01/22 clonazepam 0.5 mg disintegrating 0.5 - 1 mg PO TID #112 tabs 12/09/21 01/01/22 tablet nicotine (polacrilex) 4 mg buccal 4 mg buccal .Q2-4H PRN nicotine 12/25/21 01/01/22 lozenge cravings #108 ea cyclobenzaprine 5 mg tablet 5 mg PO QHS PRN muscle spasm #7 01/01/22 tabs lidocaine 5 % topical patch 1 patch topical DAILY PRN #15 ea 01/01/22 (Lidoderm) Previous Rx's Medication Instructions Recorded inhalational spacing device #1 ea 05/05/20 (Aerochamber MV spacer) gabapentin 600 mg tablet 600 mg PO TID #270 tabs 04/08/21 albuterol sulfate 1.25 mg/3 mL 1.25 mg (3 mL) inhalation Q6H PRN 05/07/21 solution for nebulization shortness of breath or wheezing #90 mL albuterol sulfate 90 mcg/actuation 2 puff inhalation Q6H PRN 05/07/21 aerosol inhaler (ProAir HFA) shortness of breath or wheezing #18 grams fluticasone propionate 110 1 inh inhalation BID #3 ea 05/07/21 mcg/actuation HFA aerosol inhaler fluticasone propionate 50 2 inh inhalation BID #180 ea 05/07/21 mcg/actuation blister powder for inhalation (Flovent Diskus) omeprazole 40 mg capsule,delayed 40 mg PO DAILY #90 tab-caps 05/07/21 release hydroxyzine HCl 50 mg tablet 100 mg PO QHS #180 tabs 10/08/21 baclofen 10 mg tablet 10 mg PO TID PRN back pain #90 tabs 11/18/21 ondansetron HCl 4 mg tablet 4 mg PO Q8H PRN nausea and 12/02/21 vomiting #60 tabs amoxicillin 500 mg capsule 1,000 mg PO TID #42 caps 08/09/22 benzonatate 100 mg capsule 100 mg PO TID PRN cough #14 caps 12/08/21 doxycycline hyclate 100 mg capsule 100 mg PO BID #14 caps 12/08/21 nebulizers #1 ea 12/08/21 clonazepam 0.5 mg disintegrating 0.5 - 1 mg PO TID #112 tabs 12/09/21 tablet nicotine (polacrilex) 4 mg buccal 4 mg buccal .Q2-4H PRN nicotine 12/25/21 lozenge cravings #108 ea cyclobenzaprine 5 mg tablet 5 mg PO QHS PRN muscle spasm #7 01/01/22 tabs lidocaine 5 % topical patch 1 patch topical DAILY PRN #15 ea 01/01/22 (Lidoderm) Allergies Allergy/AdvReac Type Severity Reaction Status Date / Time shellfish derived Allergy Unknown Verified 01/01/22 13:57 adhesive Allergy Verified 01/01/22 13:57 divalproex sodium Allergy Skin Rash Verified 01/01/22 13:57 [From Depakote] topiramate Allergy Verified 01/01/22 13:57 varenicline tartrate Allergy Verified 01/01/22 13:57 [From Chantix] venlafaxine AdvReac Intermediate Diarrhea Verified 01/01/22 13:57 and increased headaches oxycodone AdvReac Mild nausea Verified 01/01/22 13:57 General Stated Complaint: GenMedical RED: 4 PFSH All Active Problems (Updated 01/01/22 @ 16:17 by Tito Townsend MD) Leg pain (Acute) Hyperlipidemia (Chronic) Bipolar disorder (Chronic) PTSD (post-traumatic stress disorder) (Chronic) Generalized anxiety disorder (Chronic) 07/2021-urine negative for clonazepam x2. No further clonazepam from this office. Mild persistent asthma (Chronic) IBS (irritable bowel syndrome) (Chronic) Degenerative joint disease of cervical spine (Chronic) Chronic low back pain (Chronic) Fibromyalgia (Chronic) Insomnia (Chronic) Dysmenorrhea (Chronic) Rosacea (Chronic) GERD (gastroesophageal reflux disease) (Chronic) Cigarette smoker (Acute) Obesity (Chronic) Herpes simplex infection of skin (Acute) Medical History Prediabetes Suicide attempt At ages [age] Surgical History H/O LEEP History of esophagogastroduodenoscopy (EGD) (01/12/13) S/P cholecystectomy S/P colonoscopy (01/12/13) S/P tubal ligation Family History Mother , At 66 from cirrhosis Diabetes Essential hypertension Depression Heart disease Asthma Liver disease Father No problems noted. Brother No problems noted. Brother Lung cancer Sister , At 32 No problems noted. Sister DJD (degenerative joint disease) Asthma Sister No problems noted. Sister No problems noted. Son No problems noted. Daughter No problems noted. Maternal Grandfather No problems noted. Maternal Grandmother Breast cancer Paternal Grandfather Leukemia Paternal Grandmother Pancreatic cancer Social History Smoking/Tobacco Use Status: Current every day Tobacco Type: cigarettes Tobacco: How many years used: 26 Quit status: considering quitting Smoking risk assessment performed?: Yes Alcohol Intake: former Drug use: Daily Substance use type: marijuana Details: last used 7 Household members: spouse and other Details: spouse Brandan Number of Children: 2 current occupation: Disabled Pets and animals: Yes (3 dogs) What is your relationship status?: Panel score (0-1 are the most socially isolated patients): 1 What type of physical activity do you participate in: walking and independent ambulation Duration: 15-30 minutes/day Frequency: 3-4 times per week Seatbelt use: always Do you feel safe at home: Yes Do you feel safe in your relationship?: Yes Female Reproductive History Menstrual control method: permanent sterilization History History 5 Para Hx # Term Pregnancies 2 Multiple births Hx # Pregnancies Ectopic pregnancies AB induced Hx Number of Living Children 2 AB spontaneous Course Vital Signs Vital signs: Vital Signs Temperature 37.0 C 01/11/22 11:53 Pulse 95 H 01/11/22 11:53 Respiratory Rate 18 01/11/22 11:53 Blood Pressure 139/76 01/11/22 11:53 Temperature 37.0 C 01/11/22 11:53 Temperature Source Temporal Artery Scan 01/11/22 11:53 Pulse 95 H 01/11/22 11:53 Respiratory Rate 18 01/11/22 11:53 Blood Pressure 139/76 01/11/22 11:53 Blood Pressure Position Sitting 01/11/22 11:53 Oxygen Delivery Method Room Air 01/11/22 11:53 Oxygen Flow Rate 0 01/11/22 11:53
== END 2022-01-11 12:21 ==
PROVIDERS: PCP Nurse Practitioner Family
DX: Z53.21 Procedure and treatment not carried out due to patient leaving prior to being seen by health care provider (principal)

== ENCOUNTER 2022-01-12 09:15 | Emergency (ER) | payer MEDICARE, MEDICAID, SELFPAY ==
[2022-01-12 09:18] VITALS: BP 125/95; PULSE 89; RESP 14; TEMP 36.7
--- NOTE | 2022-01-12 09:46 | W.ED.GENAD ---
Discharge Plan Disposition Patient Disposition: HOME Condition: Stable Discharge Details Clinical Impression: Arthralgia of knee, right Primary Care Provider: Becky Jenkins ED Provider: Sofiya Lindsey Home Meds and New Rx's Prescriptions: Continued acetaminophen [Tylenol Extra Strength] 500 mg tablet 1,000 mg PO Q6H PRN (DME) Aerochamber MV Spacer See Rx Instructions .ROUTE .MEDSUPPLY Qty: 1 0RF Rx Instructions: Use with albuterol inhaler albuterol sulfate [ProAir HFA] 90 mcg/actuation HFA aerosol inhaler 2 puff Inhalation Q6H PRN (Reason: shortness of breath or wheezing) Qty: 18 4RF albuterol sulfate 1.25 mg/3 mL solution for nebulization 1.25 mg Inhalation Q6H PRN (Reason: shortness of breath or wheezing) Qty: 90 4RF omeprazole 40 mg capsule,delayed release(DR/EC) 40 mg PO DAILY Qty: 90 4RF melatonin 10 mg capsule 10 mg PO HS PRN (DME) nebulizers Misc See Rx Instructions .Route Qty: 1 0RF Rx Instructions: As directed gabapentin 600 mg tablet 600 mg PO TID Qty: 270 4RF hydroxyzine HCl 50 mg tablet 100 mg PO QHS Qty: 180 4RF baclofen 10 mg tablet 10 mg PO TID PRN (Reason: back pain) Qty: 90 2RF ondansetron HCl 4 mg tablet 4 mg PO Q8H PRN (Reason: nausea and vomiting) Qty: 60 1RF clonazepam 0.5 mg tablet,disintegrating 0.5 - 1 mg PO TID Qty: 112 2RF Rx Instructions: Take 1 tab in morning and afternoon and 2 tabs at bedtime nicotine (polacrilex) 4 mg lozenge 4 mg buccal .Q2-4H PRN (Reason: nicotine cravings) Qty: 108 3RF Discharge Instructions Instructions: Knee Pain (ED) Additional Instructions: Wear the knee brace as needed for comfort. Rest, ice, compression, elevation. Please take the tramadol twice daily as needed for moderate to severe pain. Please take Tylenol or Ibuprofen with food every 4-6 hours as needed for pain and swelling. Please follow-up with orthopedics or your PCP to discuss further imaging. Referrals: Becky Jenkins NP [Primary Care Provider] - 3 days Joshua Echeverria MD [ [facility] STAFF PHYSICIAN] - 1 week Discharge Data Discharge Date/Time-TO BE ENTERED AT DEPARTURE: 01/12/22 10:07 Medical Decision Making At this time due to no recent injury and recent x-rays performed I do not feel that imaging is warranted at this time. No complaints of back pain or cauda equina symptoms. We will give patient tramadol here in tramadol to go to tablets. Will instruct follow-up with orthopedics and/or PCP. HPI General Mode of arrival: ambulatory. Date/Time Provider Initiated Documentation: 01/12/22 09:17. Limitations to Documentation: no limitations. Information obtained by: patient, RN notes reviewed and old records reviewed. HPI Narrative: 41-year-old female presents to the ER with a chief complaint of right knee pain which radiates down into her right ankle and up into her thigh and right lower back. She reports that this began yesterday. She does have a history of knee pain and had a recent x-ray on 03 March of her knee which was negative. She also had L-spine MRI which showed bulging disc in 2020. She denies any origin of back pain. She denies any recent injuries, twisting motions or known injury. Patient is requesting MRI. I did discuss that typically in the ER we do not order MRIsto come from specialist by orthopedics or her primary care provider. She verbalized understanding. She last took some Tylenol and aspirin at 0400. Related Data Home Medications Medication Instructions Recorded Confirmed acetaminophen 500 mg tablet 1,000 mg PO Q6H PRN 08/29/18 01/12/22 (Tylenol Extra Strength) inhalational spacing device #1 ea 05/05/20 01/01/22 (Aerochamber MV spacer) melatonin 10 mg capsule 10 mg PO HS PRN 09/23/20 01/12/22 gabapentin 600 mg tablet 600 mg PO TID #270 tabs 04/08/21 01/12/22 albuterol sulfate 1.25 mg/3 mL 1.25 mg (3 mL) inhalation Q6H PRN 05/07/21 01/12/22 solution for nebulization shortness of breath or wheezing #90 mL albuterol sulfate 90 mcg/actuation 2 puff inhalation Q6H PRN 05/07/21 01/12/22 aerosol inhaler (ProAir HFA) shortness of breath or wheezing #18 grams omeprazole 40 mg capsule,delayed 40 mg PO DAILY #90 tab-caps 05/07/21 01/12/22 release hydroxyzine HCl 50 mg tablet 100 mg PO QHS #180 tabs 10/08/21 01/12/22 baclofen 10 mg tablet 10 mg PO TID PRN back pain #90 tabs 11/18/21 01/12/22 ondansetron HCl 4 mg tablet 4 mg PO Q8H PRN nausea and 12/02/21 01/12/22 vomiting #60 tabs nebulizers #1 ea 12/08/21 01/01/22 clonazepam 0.5 mg disintegrating 0.5 - 1 mg PO TID #112 tabs 12/09/21 01/12/22 tablet nicotine (polacrilex) 4 mg buccal 4 mg buccal .Q2-4H PRN nicotine 12/25/21 01/12/22 lozenge cravings #108 ea Previous Rx's Medication Instructions Recorded inhalational spacing device #1 ea 05/05/20 (Aerochamber MV spacer) gabapentin 600 mg tablet 600 mg PO TID #270 tabs 04/08/21 albuterol sulfate 1.25 mg/3 mL 1.25 mg (3 mL) inhalation Q6H PRN 05/07/21 solution for nebulization shortness of breath or wheezing #90 mL albuterol sulfate 90 mcg/actuation 2 puff inhalation Q6H PRN 05/07/21 aerosol inhaler (ProAir HFA) shortness of breath or wheezing #18 grams omeprazole 40 mg capsule,delayed 40 mg PO DAILY #90 tab-caps 05/07/21 release hydroxyzine HCl 50 mg tablet 100 mg PO QHS #180 tabs 10/08/21 baclofen 10 mg tablet 10 mg PO TID PRN back pain #90 tabs 11/18/21 ondansetron HCl 4 mg tablet 4 mg PO Q8H PRN nausea and 12/02/21 vomiting #60 tabs nebulizers #1 ea 12/08/21 clonazepam 0.5 mg disintegrating 0.5 - 1 mg PO TID #112 tabs 12/09/21 tablet nicotine (polacrilex) 4 mg buccal 4 mg buccal .Q2-4H PRN nicotine 12/25/21 lozenge cravings #108 ea Allergies Allergy/AdvReac Type Severity Reaction Status Date / Time shellfish derived Allergy Unknown Verified 01/12/22 09:39 adhesive Allergy Verified 01/12/22 09:39 divalproex sodium Allergy Skin Rash Verified 01/12/22 09:39 [From Depakote] topiramate Allergy Verified 01/12/22 09:39 varenicline tartrate Allergy Verified 01/12/22 09:39 [From Chantix] venlafaxine AdvReac Intermediate Diarrhea Verified 01/12/22 09:39 and increased headaches oxycodone AdvReac Mild nausea Verified 01/12/22 09:39 General Stated Complaint: Orthopedic RED: 4 Review of Systems Musculoskeletal Musculoskeletal: Reports as per HPI and Reports arthralgias PFSH All Active Problems (Updated 01/12/22 @ 09:53 by Sofiya Lindsey NP) Leg pain (Acute) Arthralgia of knee, right (Acute) Hyperlipidemia (Chronic) Bipolar disorder (Chronic) PTSD (post-traumatic stress disorder) (Chronic) Generalized anxiety disorder (Chronic) 07/2021-urine negative for clonazepam x2. No further clonazepam from this office. Mild persistent asthma (Chronic) IBS (irritable bowel syndrome) (Chronic) Degenerative joint disease of cervical spine (Chronic) Chronic low back pain (Chronic) Fibromyalgia (Chronic) Insomnia (Chronic) Dysmenorrhea (Chronic) Rosacea (Chronic) GERD (gastroesophageal reflux disease) (Chronic) Cigarette smoker (Acute) Obesity (Chronic) Herpes simplex infection of skin (Acute) Medical History Prediabetes Suicide attempt At ages [age] Surgical History H/O LEEP History of esophagogastroduodenoscopy (EGD) (01/12/13) S/P cholecystectomy S/P colonoscopy (01/12/13) S/P tubal ligation Family History Mother , At 66 from cirrhosis Diabetes Essential hypertension Depression Heart disease Asthma Liver disease Father No problems noted. Brother No problems noted. Brother Lung cancer Sister , At 32 No problems noted. Sister DJD (degenerative joint disease) Asthma Sister No problems noted. Sister No problems noted. Son No problems noted. Daughter No problems noted. Maternal Grandfather No problems noted. Maternal Grandmother Breast cancer Paternal Grandfather Leukemia Paternal Grandmother Pancreatic cancer Social History Smoking/Tobacco Use Status: Current every day Tobacco Type: cigarettes Tobacco: How many years used: 26 Quit status: considering quitting Smoking risk assessment performed?: Yes Alcohol Intake: former Drug use: Daily Substance use type: marijuana Details: last used 11.27.20 Household members: spouse and other Details: spouse Brandan Number of Children: 2 current occupation: Disabled Pets and animals: Yes (3 dogs) What is your relationship status?: Panel score (0-1 are the most socially isolated patients): 1 What type of physical activity do you participate in: walking and independent ambulation Duration: 15-30 minutes/day Frequency: 3-4 times per week Seatbelt use: always Do you feel safe at home: Yes Do you feel safe in your relationship?: Yes Female Reproductive History Menstrual control method: permanent sterilization History History 5 Para Hx # Term Pregnancies 2 Multiple births Hx # Pregnancies Ectopic pregnancies AB induced Hx Number of Living Children 2 AB spontaneous Exam Extrem Right lower extremity: knee Details: normal to inspection, tenderness Location: of the medial joint line and of the infrapatellar area, knee ligament exam normal and crepitus Location: at the patella; no abrasions, no lacerations, no ecchymosis, no deformity and no unusual warmth Course Vital Signs Vital signs: Vital Signs Temperature 36.7 C 01/12/22 09:18 Pulse 89 01/12/22 09:18 Respiratory Rate 14 01/12/22 09:18 Blood Pressure 125/95 H 01/12/22 09:18 Temperature 36.7 C 01/12/22 09:18 Temperature Source Oral 01/12/22 09:18 Pulse 89 01/12/22 09:18 Respiratory Rate 14 01/12/22 09:18 Respiratory Effort Non-Labored 01/12/22 09:42 Blood Pressure 125/95 H 01/12/22 09:18 Oxygen Delivery Method Room Air 01/12/22 09:18 Oxygen Flow Rate 0 01/12/22 09:18 Pain Level 10 01/12/22 09:18
[2022-01-12] MEDS: traMADol 50 MG TAB PO (10:08)
== END 2022-01-12 10:07 | disposition home or self-care (01) ==
PROVIDERS: Emergency Provider Registered Nurse Emergency; PCP Nurse Practitioner Family
DX: M25.561 Pain in right knee (principal); F17.210 Nicotine dependence, cigarettes, uncomplicated
CPT/HCPCS: 99283

== ENCOUNTER → 2022-02-04 01:56 | Outpatient (CLI) | payer MEDICARE, MEDICAID, SELFPAY ==
--- NOTE | 2022-02-04 08:15 | DI.MRI_ITS ---
Exam(s) MR LOWER JOINT RT WO EXAM: MR LOWER JOINT RT WO CLINICAL HISTORY: generalized knee pain,ARTHRALGIA, M25.561 TECHNIQUE: Multiplanar multisequence MRI was performed.. COMPARISON: No exams were available for comparison FINDINGS: MR examination of the knee was performed according to the usual protocol. There is a small knee joint effusion. There is signal abnormality in the marrow of the proximal tibia, involving the lateral posterior and central portion of the bone. Findings may represent marrow edema secondary to recent trauma, please correlate clinically. No discrete fracture identified.. Medial tibiofemoral joint: The articular cartilage of the femur and tibia appears well maintained. T he meniscus and attachments appear intact. The medial collateral ligament appears intact. No automobile wrecker omedial corner injury seen. Lateral tibiofemoral joint: The articular cartilage of the femur and tibia appears well maintained. The meniscus and attachments appear intact. The lateral collateral ligament complex and posterolater al corner structures appear intact. Patellofemoral joint and extensor mechanism: The articular cartilage of the patellofemoral joint appe ars intact. The superior and inferior patellar fat pads appear normal with no signal abnormality. The quadriceps tendon and patellar tendon appear intact with no evidence of a tear or significant irene ma. The medial and lateral retinacula appear intact. Cruciate ligaments: Cruciate ligaments and attachments appear normal with no evidence of a tear. Tibiofibular joint: No specific abnormality involving the tibiofibular joint. IMPRESSION: Question bony trabecular injury of lateral tibial plateau and central portion of the tibia, please co rrelate regarding history of trauma.. DATA REPOSITORY:
== END ==
PROVIDERS: PCP Nurse Practitioner Family; Visit Provider Nurse Practitioner Family
DX: S89.91XA Unspecified injury of right lower leg, initial encounter (principal); X58.XXXA Exposure to other specified factors, initial encounter
CPT/HCPCS: 73721; 99283; 73660; 99284

== ENCOUNTER 2022-02-04 14:49 | Emergency (ER) | payer MEDICARE, MEDICAID, SELFPAY ==
[2022-02-04 14:53] VITALS: BP 150/83; PULSE 77; RESP 18; TEMP 36.8; O2SAT 98
--- NOTE | 2022-02-04 15:00 | DI.RAD_ITS ---
Exam(s) XR TOE LT GREAT EXAM: XR TOE LT GREAT CLINICAL HISTORY: wood fell on toe TECHNIQUE: COMPARISON: CR RIGHT FOOT COMPLETE from 06/02/2008 FINDINGS: Three views were obtained. There is no evidence of acute fracture or dislocation. IMPRESSION: RADIATION DOSE DELIVERED: Total DLP
--- NOTE | 2022-02-04 16:46 | W.ED.GENAD ---
Discharge Plan Disposition Patient Disposition: HOME Condition: Good Discharge Details Clinical Impression: Crushing injury of great toe of left foot Primary Care Provider: Becky Jenkins ED Provider: Quique Rodríguez Home Meds and New Rx's Prescriptions: No Action acetaminophen [Tylenol Extra Strength] 500 mg tablet 1,000 mg PO Q6H PRN (DME) Aerochamber MV Spacer See Rx Instructions .ROUTE .MEDSUPPLY Qty: 1 0RF Rx Instructions: Use with albuterol inhaler albuterol sulfate [ProAir HFA] 90 mcg/actuation HFA aerosol inhaler 2 puff Inhalation Q6H PRN (Reason: shortness of breath or wheezing) Qty: 18 4RF albuterol sulfate 1.25 mg/3 mL solution for nebulization 1.25 mg Inhalation Q6H PRN (Reason: shortness of breath or wheezing) Qty: 90 4RF omeprazole 40 mg capsule,delayed release(DR/EC) 40 mg PO DAILY Qty: 90 4RF melatonin 10 mg capsule 10 mg PO HS PRN (DME) nebulizers Misc See Rx Instructions .Route Qty: 1 0RF Rx Instructions: As directed lidocaine 5 % adhesive patch,medicated 1 patch topical DAILY PRN (Reason: pain) Qty: 30 1RF Rx Instructions: Apply patch to most painful area, may leave on for up to 12 hrs gabapentin 600 mg tablet 600 mg PO TID Qty: 270 4RF hydroxyzine HCl 50 mg tablet 100 mg PO QHS Qty: 180 4RF baclofen 10 mg tablet 10 mg PO TID PRN (Reason: back pain) Qty: 90 2RF ondansetron HCl 4 mg tablet 4 mg PO Q8H PRN (Reason: nausea and vomiting) Qty: 60 1RF clonazepam 0.5 mg tablet,disintegrating 0.5 - 1 mg PO TID Qty: 112 2RF Rx Instructions: Take 1 tab in morning and afternoon and 2 tabs at bedtime nicotine (polacrilex) 4 mg lozenge 4 mg buccal .Q2-4H PRN (Reason: nicotine cravings) Qty: 108 3RF Discharge Instructions Instructions: Ingrown Nail (ED) Additional Instructions: If you develop any new or significant worsening symptoms feel free to return the emergency department otherwise do Epson salt foot soaks 3-4 times daily for the next 10 days. Otherwise it is very important to follow-up with your primary care provider as already arranged and have them reassess your foot. Referrals: Becky Jenkins NP [Primary Care Provider] - 02/15/22 Discharge Data Discharge Date/Time-TO BE ENTERED AT DEPARTURE: 02/04/22 17:11 Medical Decision Making Patient presenting to the emergency department for chief complaint of left great toe injury. Patient reports approximately 1 week ago she dropped a piece of firewood onto her left great toe. She cracked the nail somewhat and attempted to remove the nail but still is having pain and discomfort. She is prediabetic and wanted toe evaluated. Physical exam shows mild redness and some swelling to the distal aspect of the left great toe otherwise exam is unremarkable. No signs of infection, potential for slight ingrown nail but nothing that I feel would benefit from emergent removal. Radiological imaging was performed and shows no acute fracture. Discussed conservative management of her early ingrowing nail with patient to include Epson salt soaks, and monitoring along with nail care. Patient is agreeable to these and states she has a primary care follow-up approximately in 10 days. After discussion of diagnosis and plan of care patient has no further needs, questions, or concerns and states clear understanding to return to the emergency department for any worsening symptoms. This documentation was generated using [employer] dictation system, please disregard any oddities of phrase or misspellings. Imaging Data Radiologic Study: Attestation: I personally reviewed and interpreted this imaging study as follows: Imaging: X-Ray Radiologist's impression: FINDINGS: Three views were obtained. There is no evidence of acute fracture or dislocation HPI General Mode of arrival: ambulatory. Date/Time Provider Initiated Documentation: 02/04/22 15:00. Limitations to Documentation: no limitations. Information obtained by: patient and RN notes reviewed. History of Present Illness 41 year old F presents to the emergency department with the chief complaint of Left foot injury, described as moderate, with intensity rated at 6. Quality is described as aching, and is localized to the left and lower extremity. Patient reports no radiation. Patient started experiencing this week(s) (1) and it has been constant. No relieving factors improve symptom(s), No exacerbating factors reported . Patient notes no other symptoms.. Related Data Home Medications Medication Instructions Recorded Confirmed acetaminophen 500 mg tablet 1,000 mg PO Q6H PRN 08/29/18 02/04/22 (Tylenol Extra Strength) inhalational spacing device #1 ea 05/05/20 02/04/22 (Aerochamber MV spacer) melatonin 10 mg capsule 10 mg PO HS PRN 09/23/20 02/04/22 gabapentin 600 mg tablet 600 mg PO TID #270 tabs 04/08/21 02/04/22 albuterol sulfate 1.25 mg/3 mL 1.25 mg (3 mL) inhalation Q6H PRN 05/07/21 02/04/22 solution for nebulization shortness of breath or wheezing #90 mL albuterol sulfate 90 mcg/actuation 2 puff inhalation Q6H PRN 05/07/21 02/04/22 aerosol inhaler (ProAir HFA) shortness of breath or wheezing #18 grams omeprazole 40 mg capsule,delayed 40 mg PO DAILY #90 tab-caps 05/07/21 02/04/22 release hydroxyzine HCl 50 mg tablet 100 mg PO QHS #180 tabs 10/08/21 02/04/22 baclofen 10 mg tablet 10 mg PO TID PRN back pain #90 tabs 11/18/21 02/04/22 ondansetron HCl 4 mg tablet 4 mg PO Q8H PRN nausea and 12/02/21 02/04/22 vomiting #60 tabs nebulizers #1 ea 12/08/21 02/04/22 clonazepam 0.5 mg disintegrating 0.5 - 1 mg PO TID #112 tabs 12/09/21 02/04/22 tablet nicotine (polacrilex) 4 mg buccal 4 mg buccal .Q2-4H PRN nicotine 12/25/21 02/04/22 lozenge cravings #108 ea lidocaine 5 % topical patch 1 patch topical DAILY PRN pain #30 01/13/22 02/04/22 ea Previous Rx's Medication Instructions Recorded inhalational spacing device #1 ea 05/05/20 (Aerochamber MV spacer) gabapentin 600 mg tablet 600 mg PO TID #270 tabs 04/08/21 albuterol sulfate 1.25 mg/3 mL 1.25 mg (3 mL) inhalation Q6H PRN 05/07/21 solution for nebulization shortness of breath or wheezing #90 mL albuterol sulfate 90 mcg/actuation 2 puff inhalation Q6H PRN 05/07/21 aerosol inhaler (ProAir HFA) shortness of breath or wheezing #18 grams omeprazole 40 mg capsule,delayed 40 mg PO DAILY #90 tab-caps 05/07/21 release hydroxyzine HCl 50 mg tablet 100 mg PO QHS #180 tabs 10/08/21 baclofen 10 mg tablet 10 mg PO TID PRN back pain #90 tabs 11/18/21 ondansetron HCl 4 mg tablet 4 mg PO Q8H PRN nausea and 12/02/21 vomiting #60 tabs nebulizers #1 ea 12/08/21 clonazepam 0.5 mg disintegrating 0.5 - 1 mg PO TID #112 tabs 12/09/21 tablet nicotine (polacrilex) 4 mg buccal 4 mg buccal .Q2-4H PRN nicotine 12/25/21 lozenge cravings #108 ea lidocaine 5 % topical patch 1 patch topical DAILY PRN pain #30 01/13/22 ea Allergies Allergy/AdvReac Type Severity Reaction Status Date / Time shellfish derived Allergy Unknown Verified 02/04/22 14:56 adhesive Allergy Verified 02/04/22 14:56 divalproex sodium Allergy Skin Rash Verified 02/04/22 14:56 [From Depakote] topiramate Allergy Verified 02/04/22 14:56 varenicline tartrate Allergy Verified 02/04/22 14:56 [From Chantix] venlafaxine AdvReac Intermediate Diarrhea Verified 02/04/22 14:56 and increased headaches oxycodone AdvReac Mild nausea Verified 02/04/22 14:56 General Stated Complaint: Orthopedic RED: 4 Review of Systems Narrative: 6 systems reviewed and unremarkable except what is marked below. Musculoskeletal Musculoskeletal: Reports as per HPI, Reports arthralgias, Reports joint swelling, Denies limited range of motion, Denies numbness and Denies tingling Neurologic Neurologic: Denies numbness and Denies tingling PFSH All Active Problems (Updated 02/04/22 @ 17:04 by Quique Rodríguez NP) Crushing injury of great toe of left foot (Acute) Arthralgia of knee, right (Acute) Hyperlipidemia (Chronic) Bipolar disorder (Chronic) PTSD (post-traumatic stress disorder) (Chronic) Generalized anxiety disorder (Chronic) Mild persistent asthma (Chronic) IBS (irritable bowel syndrome) (Chronic) Degenerative joint disease of cervical spine (Chronic) Chronic low back pain (Chronic) Fibromyalgia (Chronic) Insomnia (Chronic) Dysmenorrhea (Chronic) Rosacea (Chronic) GERD (gastroesophageal reflux disease) (Chronic) Cigarette smoker (Acute) Obesity (Chronic) Herpes simplex infection of skin (Acute) Medical History (Updated 02/04/22 @ 17:04 by Quique Rodríguez NP) Prediabetes Suicide attempt At ages [age] Surgical History H/O LEEP History of esophagogastroduodenoscopy (EGD) (01/12/13) S/P cholecystectomy S/P colonoscopy (01/12/13) S/P tubal ligation Family History Mother , At 66 from cirrhosis Diabetes Essential hypertension Depression Heart disease Asthma Liver disease Father No problems noted. Brother No problems noted. Brother Lung cancer Sister , At 32 No problems noted. Sister DJD (degenerative joint disease) Asthma Sister No problems noted. Sister No problems noted. Son No problems noted. Daughter No problems noted. Maternal Grandfather No problems noted. Maternal Grandmother Breast cancer Paternal Grandfather Leukemia Paternal Grandmother Pancreatic cancer Social History Smoking/Tobacco Use Status: Current every day Tobacco Type: cigarettes Tobacco: How many years used: 26 Quit status: considering quitting Smoking risk assessment performed?: Yes Alcohol Intake: former Drug use: Daily Substance use type: marijuana Details: last used 11.27.20 Household members: spouse and other Details: spouse Brandan Number of Children: 2 current occupation: Disabled Pets and animals: Yes (3 dogs) What is your relationship status?: Panel score (0-1 are the most socially isolated patients): 1 What type of physical activity do you participate in: walking and independent ambulation Duration: 15-30 minutes/day Frequency: 3-4 times per week Seatbelt use: always Do you feel safe at home: Yes Do you feel safe in your relationship?: Yes Female Reproductive History Menstrual control method: permanent sterilization History History 5 Para Hx # Term Pregnancies 2 Multiple births Hx # Pregnancies Ectopic pregnancies AB induced Hx Number of Living Children 2 AB spontaneous Exam Const General: cooperative, no acute distress and not ill appearing Orientation: alert, awake and oriented x3 Resp Effort & Inspection: normal respiratory effort, able to speak in complete sentences and no respiratory distress Cardio Rate: regular rate Rhythm: regular rhythm Pulses: posterior tibial pulses present, dorsalis pedis present and normal peripheral pulses Skin General skin exam: no rashes or lesions noted Neuro General: patient alert, patient awake, patient oriented x3, moves all extremities and no focal motor deficits Sensory Exam: no sensory deficits noted Extrem General: normal exam except as noted Left lower extremity: foot Details: normal capillary refill, abnormal to inspection Details: erythematous (distal great toe), tenderness Location: of the great toe Location: at the distal phalanx and along the dorsal aspect, abnormal ROM of toe Details: pain with active ROM Location: of the great toe, edema Location: of the great toe Location: at the distal phalanx, tendon exam Details: active flexion normal and active extension normal and motor-sensory exam Details: two point discrimination normal and light-touch normal Course Vital Signs Vital signs: Vital Signs Temperature 36.8 C 02/04/22 14:53 Pulse 77 02/04/22 14:53 Respiratory Rate 18 02/04/22 14:53 Blood Pressure 150/83 H 02/04/22 14:53 Pulse Oximetry 98 02/04/22 14:53 Temperature 36.8 C 02/04/22 14:53 Temperature Source Temporal Artery Scan 02/04/22 14:53 Pulse 77 02/04/22 14:53 Respiratory Rate 18 02/04/22 14:53 Respiratory Effort Non-Labored 02/04/22 14:56 Blood Pressure 150/83 H 02/04/22 14:53 Blood Pressure Position Sitting 02/04/22 14:53 Pulse Oximetry 98 02/04/22 14:53 Oxygen Delivery Method Room Air 02/04/22 14:53 Oxygen Flow Rate 0 02/04/22 14:53
== END 2022-02-04 17:11 | disposition home or self-care (01) ==
PROVIDERS: Emergency Provider Nurse Practitioner Family; PCP Nurse Practitioner Family
DX: S97.112A Crushing injury of left great toe, initial encounter (principal); R73.03 Prediabetes; F17.210 Nicotine dependence, cigarettes, uncomplicated; W20.8XXA Other cause of strike by thrown, projected or falling object, initial encounter
CPT/HCPCS: 99283; 73660; 99284

== ENCOUNTER → 2022-02-05 00:27 | Outpatient (CLI) | payer MEDICARE, MEDICAID, SELFPAY ==
--- NOTE | 2022-02-05 06:45 | DI.MAMMO_ITS ---
Exam(s) MAMMO SCREENING EXAM: MAMMO SCREENING CLINICAL HISTORY: screening,Z12.39. TECHNIQUE: Bilateral full field digital CC and MLO mammographic images were obtained with 3D tomosyn thesis and utilizing computer aided detection (CAD). COMPARISON: Prior baseline mammogram May 2020 was reviewed. FINDINGS: There are no CAD designations. There are no new right breast findings. In the left breast on 3D cc imaging there is an asymmetric density measuring 7 x 5 millimeters locate d 6 cm in from the nipple. Spot compression view and ultrasound recommended. There are no malignant-appearing microcalcification groups in this region nor elsewhere in either prabhakar ast. There is no significant architectural distortion nor skin thickening-retraction. IMPRESSION: 1. No radiographic evidence of malignancy right breast. 2. Left breast asymmetric density-possible nodule. Spot compression CC view and complete left breast ultrasound recommended. BI-RADS Category 0 - Assessment Incomplete: Need additional imaging evaluation Breast Density - Category C - Heterogeneously dense Breast density Category C or D implies that the patient has dense breast tissue. Dense breast tissue can make it harder to find cancer on a mammogram. Dense breast tissue is also associated with an incr eased risk of breast cancer. This information about the result of the mammogram report was provided to the patient to raise their awareness. Use this report when you speak with the patient about their risks for breast cancer, which includes their family history. At that time, you may recommend additional screening tests (Ultrasoun d or MRI) as these tests may add significant information. A negative radiographic report should not delay biopsy if a dominant or clinically suspicious mass is present. Up to ten percent of cancers are not identified on mammography. A negative report may reinforce clinical impression. Adenosis and dense breasts may obscure an underlying neoplasm. False positive reports average 6 to 10%. Patient will receive a letter notifying them of these results.
== END ==
PROVIDERS: PCP Nurse Practitioner Family; Visit Provider Nurse Practitioner Family
DX: Z12.31 Encounter for screening mammogram for malignant neoplasm of breast (principal); R92.8 Other abnormal and inconclusive findings on diagnostic imaging of breast
CPT/HCPCS: 77063; 77067

== ENCOUNTER → 2022-02-09 02:15 | Outpatient (CLI) | payer MEDICARE, MEDICAID, SELFPAY ==
--- NOTE | 2022-02-09 | DI.MAMMO_ITS ---
Exam(s) MG MAMMO SCREEN CALL BACK UNI US BREAST LT LIMITED EXAM: MG MAMMO SCREEN CALL BACK UNI and U/S breast LT limited CLINICAL HISTORY: F/U MAMMO, ASYMMETRIC DENSITY LT, R92.8, FAMILY H/O BREAST CA. TECHNIQUE: Craniocaudal and mediolateral oblique Full Field Digital Mammography views of the left br east with Computer Aided Diagnosis followed by Tomosynthesis and left breast ultrasound. COMPARISON: Comparison is made with prior examinations. FINDINGS: Mammography/Tomosynthesis: Masses/Architectural Distortion: None seen. No persistent nodule is seen on the additional views. Microcalcifictions: No suspicious pleomorphic-type are seen. Skin Thickening/Nipple Retraction: None. Limited left breast US: Echotexture: Normal appearance of the glandular tissue. Shadowing: No suspicious foci. Cyst: None. Solid lesions: There is a radially oriented well-circumscribed hypoechoic 0.5 x 0.2 x 0.5 cm nodule a t the 2 o'clock position of the left breast 5 cm from the nipple. This likely reflects a benign lesi on such as the intraparenchymal lymph node or fibroadenoma. No suspicious masses are seen sonographi emily. Ductal dilation: None. IMPRESSION: 1. No evidence of malignancy is noted. 2. Unless there is more urgent need, follow-up screening mammography is recommended, as per [employer] guidelines. 3. The findings were discussed with the patient on the date of the examination. BI-RADS Category 2 - Benign Findings Breast Density - Category C - Heterogeneously dense Breast density Category C or D implies that the patient has dense breast tissue. Dense breast tissue can make it harder to find cancer on a mammogram. Dense breast tissue is also associated with an incr eased risk of breast cancer. This information about the result of the mammogram report was provided to the patient to raise their awareness. Use this report when you speak with the patient about their risks for breast cancer, which includes their family history. At that time, you may recommend additional screening tests (Ultrasoun d or MRI) as these tests may add significant information. A negative radiographic report should not delay biopsy if a dominant or clinically suspicious mass is present. Up to ten percent of cancers are not identified on mammography. A negative report may reinforce clinical impression. Adenosis and dense breasts may obscure an underlying neoplasm. False positive reports average 6 to 10%. Patient will receive a letter notifying them of these results.
== END ==
PROVIDERS: PCP Nurse Practitioner Family; Visit Provider Nurse Practitioner Family
DX: Z12.31 Encounter for screening mammogram for malignant neoplasm of breast (principal); R92.8 Other abnormal and inconclusive findings on diagnostic imaging of breast
CPT/HCPCS: 76642; 77063; 77067

== ENCOUNTER → 2022-03-16 10:40 | Outpatient (BNVA) | payer MEDICARE, MEDICAID, SELFPAY | PROVIDERS: PCP Nurse Practitioner Family; Referring Provider Nurse Practitioner Family; Visit Provider Surgery | DX: R73.03 Prediabetes (principal); F17.210 Nicotine dependence, cigarettes, uncomplicated; E66.3 Overweight; L05.91 Pilonidal cyst without abscess | CPT/HCPCS: 99213 ==

== ENCOUNTER → 2022-03-26 00:10 | Outpatient (CLI) | payer MEDICARE, MEDICAID, SELFPAY ==
--- NOTE | 2022-03-26 07:15 | DI.MRI_ITS ---
Exam(s) MR LUMBAR SPINE WO EXAM: MR LUMBAR SPINE WO CLINICAL HISTORY: Worsening bilateral leg radicular pain/weakness M54.17 RADICULOPATHY. TECHNIQUE: Multiplanar multisequence MRI was performed. COMPARISON: MR MR LUMBAR SPINE WO from 08/20/2020 FINDINGS: MR examination of lumbosacral spine was performed according to the usual protocol. There are focal areas of high signal seen in superior endplate of L2 and also in T12 vertebral body c onsistent with fatty rests or small vertebral hemangiomas. No other significant bony signal abnormal ity seen. There is mild loss of signal in L4-5 and L5-S1 intervertebral discs consistent with disc d egeneration. Conus medullaris appears intact. No significant findings from T11-12 through L3-4. No disc herniation, central canal spinal stenosis, or neural foraminal stenosis at these levels. There is mild disc bulge at L4-5 with borderline central canal spinal stenosis, unchanged from prior examination of July 2020. There is mild bilateral neural foraminal stenosis at L4-5. At L5-S1, there is a mild disc herniation which is central. This is unchanged from prior study. No definite neural impingement seen. No central canal spinal stenosis or neural foraminal stenosis. IMPRESSION: Mild disc herniation at L5-S1 centrally period mild bilateral neural foraminal narrowing at L4-5 with borderline central canal a nail spinal stenosis also noted at L4-5. No significant change from prior MRI July 2020. DATA REPOSITORY:
== END ==
PROVIDERS: PCP Nurse Practitioner Family; Visit Provider Preventive Medicine Occupational Medicine
DX: M54.17 Radiculopathy, lumbosacral region (principal); M51.27 Other intervertebral disc displacement, lumbosacral region
CPT/HCPCS: 72148

== ENCOUNTER 2022-04-20 06:19 | Day surgery (SDC) | payer MEDICARE, MEDICAID, SELFPAY ==
--- NOTE | 2022-04-19 21:22 | HPE_ITS ---
Assessment and Plan Assessment and plan (1) Pilonidal cyst: Status: Acute Assessment and plan: Think it is fine to proceed with pilonidal cystectomy today. About the nature of the operation, as well as the anticipated course of recovery. I explained the wound he has since for this type of operation. I think she has a good understanding of that. History of Present Illness History of Present Illness Chief Complaint: Pilonidal cyst Narrative: Mrs Calvert is a pleasant 42-year-old female who is here today to discuss a pil onidal cyst excision.? She tells me that she went to the emergency department in September for a pilonidal abscess.? It opened and drained.? She has had milder recurrences since then.? She continues to be sore in the area.? She denies any fevers or chills.? The area does not feel hot to the touch.? Her past medical history significant for asthma and prediabetes.? She also has chronic back pain secondary to a benign cyst at S1.? She denies any chest pain or palpitations.? She continues to smoke despite her asthma.? She tells me that she is trying to quit but it is hard because her also smokes and he does not want to quit. PFSH All Active Problems Bipolar disorder (Chronic) Rosacea (Chronic) Dysmenorrhea (Chronic) Fibromyalgia (Chronic) Insomnia (Chronic) Degenerative joint disease of cervical spine (Chronic) GERD (gastroesophageal reflux disease) (Chronic) Mild persistent asthma (Chronic) IBS (irritable bowel syndrome) (Chronic) Cigarette smoker (Acute) Generalized anxiety disorder (Chronic) PTSD (post-traumatic stress disorder) (Chronic) Hyperlipidemia (Chronic) Chronic low back pain (Chronic) Obesity (Chronic) Herpes simplex infection of skin (Acute) Lumbosacral radiculitis (Acute) Pilonidal cyst (Acute) Medical History Chronic neck pain Prediabetes Suicide attempt At ages [age] Surgical History H/O LEEP History of esophagogastroduodenoscopy (EGD) (01/12/13) S/P cholecystectomy S/P colonoscopy (01/12/13) S/P tubal ligation Family History Mother , At 66 from cirrhosis Diabetes Essential hypertension Depression Heart disease Asthma Liver disease Father No problems noted. Brother No problems noted. Brother Lung cancer Sister , At 32 No problems noted. Sister DJD (degenerative joint disease) Asthma Sister No problems noted. Sister No problems noted. Son No problems noted. Daughter No problems noted. Maternal Grandfather No problems noted. Maternal Grandmother Breast cancer Paternal Grandfather Leukemia Paternal Grandmother Pancreatic cancer Social History Smoking/Tobacco Use Status: Current every day Tobacco Type: cigarettes Tobacco: How many years used: 26 Quit status: considering quitting Smoking risk assessment performed?: Yes Alcohol Intake: former Drug use: Daily Substance use type: marijuana Details: last used 04/19/22 Household members: spouse and other Details: spouse Brandan Number of Children: 2 current occupation: Disabled Pets and animals: Yes (3 dogs) What is your relationship status?: Panel score (0-1 are the most socially isolated patients): 1 What type of physical activity do you participate in: walking and independent ambulation Duration: 15-30 minutes/day Frequency: 3-4 times per week Seatbelt use: always Do you feel safe at home: Yes Do you feel safe in your relationship?: Yes Female Reproductive History Menstrual control method: permanent sterilization History History 5 Para Hx # Term Pregnancies 2 Multiple births Hx # Pregnancies Ectopic pregnancies AB induced Hx Number of Living Children 2 AB spontaneous Meds Allergies and Home Medications Allergies Allergy/AdvReac Type Severity Reaction Status Date / Time adhesive Allergy Mild Skin Rash Verified 04/16/22 13:29 divalproex sodium Allergy Mild Skin Rash Verified 04/16/22 13:29 [From Depakote] topiramate Allergy Mild Skin Rash Verified 04/16/22 13:29 varenicline tartrate Allergy Mild Skin Rash Verified 04/16/22 13:29 [From Chantix] Fish Containing Products Allergy Unknown Verified 04/16/22 13:29 shellfish derived Allergy Unknown Verified 04/16/22 13:29 venlafaxine AdvReac Intermediate Diarrhea Verified 04/16/22 13:29 and increased headaches oxycodone AdvReac Mild nausea Verified 04/16/22 13:29 Home Medications Medication Instructions Recorded Confirmed Type acetaminophen 500 mg tablet 1,000 mg PO Q6H PRN 08/29/18 04/20/22 History (Tylenol Extra Strength) inhalational spacing device #1 ea 05/05/20 03/16/22 Rx (Aerochamber MV spacer) melatonin 10 mg capsule 10 mg PO HS PRN 09/23/20 04/20/22 History gabapentin 600 mg tablet 600 mg PO TID #270 tabs 04/08/21 04/20/22 Rx albuterol sulfate 1.25 mg/3 mL 1.25 mg (3 mL) inhalation Q6H PRN 05/07/21 04/20/22 Rx solution for nebulization shortness of breath or wheezing #90 mL albuterol sulfate 90 mcg/actuation 2 puff inhalation Q6H PRN 05/07/21 04/20/22 Rx aerosol inhaler (ProAir HFA) shortness of breath or wheezing #18 grams omeprazole 40 mg capsule,delayed 40 mg PO DAILY #90 tab-caps 05/07/21 04/20/22 Rx release hydroxyzine HCl 50 mg tablet 100 mg PO QHS #180 tabs 10/08/21 04/20/22 Rx ondansetron HCl 4 mg tablet 4 mg PO Q8H PRN nausea and 12/02/21 04/20/22 Rx vomiting #60 tabs nebulizers #1 ea 12/08/21 03/16/22 Rx nicotine (polacrilex) 4 mg buccal 4 mg buccal .Q2-4H PRN nicotine 12/25/21 04/20/22 Rx lozenge cravings #108 ea lidocaine 5 % topical patch 1 patch topical DAILY PRN pain #30 01/13/22 04/20/22 Rx ea baclofen 10 mg tablet 10 mg PO TID PRN back pain #90 tabs 02/15/22 04/20/22 Rx celecoxib 100 mg capsule (Celebrex) 100 mg PO DAILY PRN pain #90 caps 02/15/22 04/20/22 Rx clonazepam 0.5 mg disintegrating 0.5 - 1 mg PO TID #112 tabs 03/03/22 04/20/22 Rx tablet fluticasone propionate 110 1 puff inhalation BID 04/06/22 04/20/22 History mcg/actuation HFA aerosol inhaler fluticasone propionate 50 1 ea inhalation BID 04/06/22 04/20/22 History mcg/actuation blister powder for inhalation (Flovent Diskus) Exam Const General: cooperative, healthy appearing and comfortable Orientation: awake and oriented x3 Eyes General: appearance normal, both eyes and all related structures Conjunctivae: conjunctivae normal Sclera: sclerae normal Resp Effort & Inspection: normal respiratory effort and able to speak in complete sentences Auscultation: clear to auscultation bilaterally Cardio Jugular venous pressure: no JVD Rate: regular rate Rhythm: regular rhythm Heart Sounds: S1 normal and S2 normal GI Inspection: non-distended Palpation: soft, no guarding, no hernias and nontender Auscultation: normal bowel sounds Skin General skin exam: normal turgor Other: There is a small cystic opening at the cephalad portion of the intergluteal cleft consistent with a pilonidal cyst. Neuro General: patient alert, patient awake and patient oriented x3 Cognition: normal cognition Extrem Right lower extremity: no edema Left lower extremity: no edema
--- NOTE | 2022-04-19 21:24 | PDOC.DSDIS_ITS ---
Date of service: 04/20/22 Time of Service: 08:29 Discharge Plan Disposition Patient Disposition: Home Discharge Details Reason For Visit: Pilonidal cystectomy Attending Provider: Chip Myers Primary Care Provider: Becky Jenkins Home Meds and New Rx's Prescriptions: New tramadol 100 mg tablet 100 mg PO BID PRN (Reason: pain) Qty: 6 0RF Rx Instructions: Take one half of a tablet, or 1 full tablet by mouth every 12 hours as needed for severe pain. Continued acetaminophen [Tylenol Extra Strength] 500 mg tablet 1,000 mg PO Q6H PRN baclofen 10 mg tablet 10 mg PO TID PRN (Reason: back pain) Qty: 90 2RF celecoxib [Celebrex] 100 mg capsule 100 mg PO DAILY PRN (Reason: pain) Qty: 90 0RF (DME) Aerochamber MV Spacer See Rx Instructions .ROUTE .MEDSUPPLY Qty: 1 0RF Rx Instructions: Use with albuterol inhaler albuterol sulfate [ProAir HFA] 90 mcg/actuation HFA aerosol inhaler 2 puff Inhalation Q6H PRN (Reason: shortness of breath or wheezing) Qty: 18 4RF albuterol sulfate 1.25 mg/3 mL solution for nebulization 1.25 mg Inhalation Q6H PRN (Reason: shortness of breath or wheezing) Qty: 90 4RF omeprazole 40 mg capsule,delayed release(DR/EC) 40 mg PO DAILY Qty: 90 4RF melatonin 10 mg capsule 10 mg PO HS PRN (DME) nebulizers Misc See Rx Instructions .Route Qty: 1 0RF Rx Instructions: As directed lidocaine 5 % adhesive patch,medicated 1 patch topical DAILY PRN (Reason: pain) Qty: 30 1RF Rx Instructions: Apply patch to most painful area, may leave on for up to 12 hrs gabapentin 600 mg tablet 600 mg PO TID Qty: 270 4RF hydroxyzine HCl 50 mg tablet 100 mg PO QHS Qty: 180 4RF ondansetron HCl 4 mg tablet 4 mg PO Q8H PRN (Reason: nausea and vomiting) Qty: 60 1RF nicotine (polacrilex) 4 mg lozenge 4 mg buccal .Q2-4H PRN (Reason: nicotine cravings) Qty: 108 3RF clonazepam 0.5 mg tablet,disintegrating 0.5 - 1 mg PO TID Qty: 112 2RF Rx Instructions: Take 1 tab in morning and afternoon and 2 tabs at bedtime Flovent Diskus 50 mcg/actuation blister with device 1 ea INHALATION BID Label Comments: INHALE TWO PUFFS BY MOUTH TWICE A DAY fluticasone propionate 110 mcg/actuation Hfa Aerosol Inhaler 1 puff INHALATION BID Discharge Instructions Instructions: Pilonidal Cyst Excision (DC) Additional Instructions: 1. Resume all of your medications. 2. Okay to use tylenol and ibuprofen over the counter as needed. Use tramadol as needed for severe pain. 3. Leave bandage in place until we see you in the office 4. The bandage will have some blood staining on the white part of the sponge. If the sponge becomes completely covered in red blood, please contact the office. 5. Shower with warm soapy water. Pat dry. 6. No soaking or tub baths until I see you in the office. 7.Call the office (or go directly to the emergency room after hours) if you notice any of the following: Develop chills (warm to touch), or if you have a thermometer and your temperature is above 101 Difficulty breathing or difficultly swallowing Persistent vomiting Any bleeding ? exceeding one tablespoon 8. Call your physician if the site where your intravenous was started becomes red, swollen, painful, and warm to touch. Referrals: Chip Myers MD [ [facility] STAFF PHYSICIAN] - (Follow-up in my office 7 days for RAJIV dressing removal) Activity:: Minimize weight bearing on incision Remove Dressings/Wound Care:: 24 hours Shower/Bathe:: 24 hours Diet:: As Tolerated Discharge Orders Discharge Orders: Discharge Order (Routine); Ordered 04/19/22 Ordered By: Chip Myers DS: Diagnosis Discharge Diagnosis (1) Pilonidal cyst: Status: Acute Asessment and Plan: Pilonidal cystectomy -Your bandages covered with a special type of vacuum dressing. This should remain in place until it is removed in the office. You can shower with this
--- NOTE | 2022-04-19 21:27 | ROE_ITS ---
Date of service: 04/20/22 Time of Service: 08:34 Operative Note Operative Note DATE OF PROCEDURE: 04/20/22 PRE-OP DIAGNOSIS: Pilonidal cyst POST-OP DIAGNOSIS: same PROCEDURE: Pilonidal cystectomy SURGEON: Chip Myers HOME SUPPORT WORKER: Carly Garcia ANESTHESIA TYPE: Local By Surgeon and Other (Saddle block) Refer to Anesthesia Record ESTIMATED BLOOD LOSS: 20 PATHOLOGY: none sent COMPLICATIONS: None Patient was transported to: PACU Patient's condition: stable Indications: Katie is a 41-year-old woman with a pilonidal cyst requiring incision and drainage of infection in the past. She presents for elective pilonidal cystectomy. Procedure Description: After establishing a saddle block, the patient was assisted to prone, slightly jackknife positioning. Great care was taken to pad all the points of contact. Patient was then prepped and draped in the usual fashion. I began with a superficial examination of the pilonidal cyst tract using a lacrimal duct probe. The opening of the cyst was slightly towards the patient's right of midline. It tracked caudally and slightly to the right. It was approximately 2 cm deep. Next, using local anesthetic, I established a generous field block. I then began creating a semilunar incision around the cyst opening curving towards the patient's right side. Healthy cuff of skin around the cyst opening was incorporated with the incision. The incision length was approximately 5 cm long. Next, using a lacrimal duct probe as a guide, I continued my dissection down through the subcutaneous fat encompassing the entirety of the pilonidal cyst. I dissected along the underside and remove the specimen in total. Next, I irrigated the surgical site. There was a small amount of bleeding that was easily controlled with the Bovie. The final excision was approximately 5 cm long by 3 cm wide by 3 cm deep. Next, using skin elevators, I mobilized partial-thickness flaps, again curving flap towards the patient's right side. Once this was completed, I was able to close the skin with deep Vicryl stitches, leaving the suture line to the right of midline. The skin was approximated with nylon vertical mattress stitches. In order to minimize shear forces along the incision, and help to improve drainage, I placed a RAJIV dressing. I selected the smallest PCIO dressing that would appropriately fit the wound. Negative pressure was applied, and the dressing to seal appropriately.
[2022-04-20] VITALS (10 sets, daily range): BP systolic 134–176; BP diastolic 89–104; PULSE 57–81; RESP 16–22; TEMP 36.2–36.8; O2SAT 94–98; BMI 39.9
[2022-04-20] MEDS: Celecoxib 200 MG CAP PO (06:59)
[2022-04-20] MEDS: Gabapentin 300 MG CAP 600 MG PO (06:59)
[2022-04-20] MEDS: Acetaminophen 500 MG TAB 1000 MG PO (06:59)
[2022-04-20] MEDS: Lactated Ringers 1,000 ML 80 ML IV (07:00)
--- NOTE | 2022-04-20 07:17 | W.ANESPRE ---
General Info Date of Service Date Performed: 04/20/22 Height: 5 ft 4 in Weight: 105.4 kg Body Mass Index (BMI): 39.9 Surgical Procedure: Operation Date: 04/20/22 07:40 Proposed Procedure Side Surgeon p Pilonidal Cyst Excision Chip Myers MD Meds Allergies and Home Medications Allergies Allergy/AdvReac Type Severity Reaction Status Date / Time adhesive Allergy Mild Skin Rash Verified 04/16/22 13:29 divalproex sodium Allergy Mild Skin Rash Verified 04/16/22 13:29 [From Depakote] topiramate Allergy Mild Skin Rash Verified 04/16/22 13:29 varenicline tartrate Allergy Mild Skin Rash Verified 04/16/22 13:29 [From Chantix] Fish Containing Products Allergy Unknown Verified 04/16/22 13:29 shellfish derived Allergy Unknown Verified 04/16/22 13:29 venlafaxine AdvReac Intermediate Diarrhea Verified 04/16/22 13:29 and increased headaches oxycodone AdvReac Mild nausea Verified 04/16/22 13:29 Home Medication Medication Instructions Recorded acetaminophen 500 mg tablet 1,000 mg PO Q6H PRN 08/29/18 (Tylenol Extra Strength) inhalational spacing device #1 ea 05/05/20 (Aerochamber MV spacer) melatonin 10 mg capsule 10 mg PO HS PRN 09/23/20 gabapentin 600 mg tablet 600 mg PO TID #270 tabs 04/08/21 albuterol sulfate 1.25 mg/3 mL 1.25 mg (3 mL) inhalation Q6H PRN 05/07/21 solution for nebulization shortness of breath or wheezing #90 mL albuterol sulfate 90 mcg/actuation 2 puff inhalation Q6H PRN 05/07/21 aerosol inhaler (ProAir HFA) shortness of breath or wheezing #18 grams omeprazole 40 mg capsule,delayed 40 mg PO DAILY #90 tab-caps 05/07/21 release hydroxyzine HCl 50 mg tablet 100 mg PO QHS #180 tabs 10/08/21 ondansetron HCl 4 mg tablet 4 mg PO Q8H PRN nausea and 12/02/21 vomiting #60 tabs nebulizers #1 ea 12/08/21 nicotine (polacrilex) 4 mg buccal 4 mg buccal .Q2-4H PRN nicotine 12/25/21 lozenge cravings #108 ea lidocaine 5 % topical patch 1 patch topical DAILY PRN pain #30 01/13/22 ea baclofen 10 mg tablet 10 mg PO TID PRN back pain #90 tabs 02/15/22 celecoxib 100 mg capsule (Celebrex) 100 mg PO DAILY PRN pain #90 caps 02/15/22 clonazepam 0.5 mg disintegrating 0.5 - 1 mg PO TID #112 tabs 03/03/22 tablet fluticasone propionate 110 1 puff inhalation BID 04/06/22 mcg/actuation HFA aerosol inhaler fluticasone propionate 50 1 ea inhalation BID 04/06/22 mcg/actuation blister powder for inhalation (Flovent Diskus) Current Visit Medications: Current Medications Generic Name Dose Route Start Last Admin Trade Name Freq PRN Reason Stop Dose Admin Acetaminophen 1,000 mg 04/20/22 06:00 04/20/22 06:59 Acetaminophen 500 Mg Tab PO 05/19/22 23:59 1,000 mg PREOP ANIKA Administration Celecoxib 200 mg 04/20/22 06:00 04/20/22 06:59 Celecoxib 200 Mg Cap PO 05/19/22 23:59 200 mg PREOP ANIKA Administration Gabapentin 600 mg 04/20/22 06:00 04/20/22 06:59 Gabapentin 300 Mg Cap PO 05/19/22 23:59 600 mg PREOP ANIKA Administration Hydromorphone HCl 0.2 mg 04/19/22 21:29 Hydromorphone 2 Mg/Ml Syr IVP Q1H PRN PRN Ringer's Solution 1,000 mls @ 80 mls/hr 04/20/22 06:00 04/20/22 07:00 IV 05/19/22 23:59 80 mls/hr INFUSION ANIKA Administration Cefazolin Sodium/Dextrose 2 gm in 50 mls @ 100 mls/hr 04/20/22 06:00 Ancef Duplex IVPB 05/19/22 23:59 PREOP ANIKA IV Miscellaneous Supplies 1 each 04/20/22 06:00 Iv Access IV 05/19/22 23:59 DIRECTED ANIKA Sodium Chloride 0 ml 04/20/22 06:00 Normal Saline Flush 10 Ml Syr IV 05/19/22 23:59 PRN PRN Sodium Chloride 0 ml 04/20/22 06:00 Normal Saline 10 Ml Vial IJ 05/19/22 23:59 DIRECTED PRN Sterile Water 0 ml 04/20/22 06:00 Water,Injection,Sterile 10 Ml Vial IJ 05/19/22 23:59 DIRECTED PRN Tramadol HCl 50 mg 04/19/22 21:29 Tramadol 50 Mg Tab PO Q6H PRN PRN Pain PFSH Active Problems Active Problems: Problem Status Onset Code Bipolar disorder Rosacea Dysmenorrhea N94.6 Fibromyalgia M79.7 Insomnia G47.00 Degenerative joint disease of cervical spine M47.812 GERD (gastroesophageal reflux disease) K21.9 Mild persistent asthma J45.30 IBS (irritable bowel syndrome) K58.9 Cigarette smoker F17.210 Generalized anxiety disorder F41.1 PTSD (post-traumatic stress disorder) F43.10 Hyperlipidemia E78.5 Chronic low back pain M54.5, G89.29 Obesity E66.9 Herpes simplex infection of skin B00.9 Lumbosacral radiculitis M54.17 Pilonidal cyst L05.91 Medical History Medical History Chronic neck pain Prediabetes Suicide attempt At ages [age] Surgical History Surgical History H/O LEEP History of esophagogastroduodenoscopy (EGD) (01/12/13) S/P cholecystectomy S/P colonoscopy (01/12/13) S/P tubal ligation Tobacco Smoking/Tobacco Use Status: Current every day Tobacco Type: cigarettes Passive smoking exposure: Yes Alcohol Alcohol Intake: former Substance Use Substance use: Daily Substance use type: marijuana Details: last used 04/19/22 Prental History History 5 Para Hx # Term Pregnancies 2 Multiple births Hx # Pregnancies Ectopic pregnancies AB induced Hx Number of Living Children 2 AB spontaneous Vital Signs and Lab Results Vital Signs Most Recent Vital Signs in EMR: Most Recent Vital Signs Temp Pulse Resp BP Pulse Ox 36.6 C 81 16 142/89 H 94 04/20/22 06:20 04/20/22 06:20 04/20/22 06:20 04/20/22 06:20 04/20/22 06:20 Point of Care Results Point of Care Results: POC- Test(urine) Negative 04/20/22 06:47 Lab Results Blood Type / Crossmatch: No Data to Display Complete Blood Count: No Data to Display Complete Metabolic Panel: No Data to Display Liver Function Panel: No Data to Display Coagulation Panel: No Data to Display Cardiac Panel: No Data to Display Arterial Blood Gas: No Data to Display Venous Blood Gas: No Data to Display Pancreas Panel: No Data to Display Thyroid Panel: No Data to Display Infectious Disease: No Data to Display Blood Cultures: No Data to Display Toxicology Panel: No Data to Display Panel: No Data to Display Anesthesia Assessment and Plan Anesthesia History Personal History: No History of Anesthesia Complications Family History: Other (Maternal uncle allergic) Exercise Tolerance Exercise Tolerance: Metabolic Equivalents<4 Pertinent Negatives Pertinent Negatives: No Symptoms of GERD, No Major Cardiovascular Symptoms or Complaints, No Major Pulmonary Symptoms or Complaints and No History of CVA/TIA Cardiac & Pulmonary Exam Cardiac Exam: Normal S1/S2 Heart Sounds Pulmonary Exam: Clear Bilateral Breath Sounds Implantable Cardiac Device Does patient have a Pacemaker or an ICD?: No Airway Exam Known Difficult Airway: No Mallampati Class: 1 Mouth Opening: Normal (> 3cm) Thyromental Distance: Greater than 3 cm Neck Range of Motion: Limited ROM Neck Circumference: Normal Teeth Condition: Generalized Poor Dentition (None loose per pt) ASA Classification ASA Score: ASA 3 Emergency Case?: No NPO Status NPO Status: NPO Clears >2 hours, Solids >8 hours Status Status: Negative HCG Anesthesia Plan Resuscitation Status: Full Code Anesthesia Technique: Spinal Anesthesia Airway Planned: Natural Airway Monitors Used: Standard Monitors
[2022-04-20] MEDS: ceFAZolin 2 GM/50 ML BAG IVPB (07:34)
[2022-04-20] MEDS: Lidocaine 1% Pres-Free W/EPI 1/200,000 10 ML VIAL (07:59)
--- NOTE | 2022-04-20 11:31 | W.ANESPOSTOP ---
Postoperative Evaluation Date, Time and Location Date Performed: 04/20/22 Time Performed: 11:14 Patient Location: Day Surgery Unit Vital Signs Most Recent Imported Vital Signs: Most Recent Vital Signs Temp Pulse Resp BP Pulse Ox 36.5 C 65 18 155/95 H 98 04/20/22 09:20 04/20/22 09:20 04/20/22 09:20 04/20/22 09:20 04/20/22 09:20 Pain Score Most Recent Pain Score: Most Recent Pain Score Pain Level 0 04/20/22 09:20 Assessment Mental Status: Awake (Alert & Oriented to Patient Baseline) Airway and Respiratory Function: Patent airway with normal (patient baseline) respiratory exam Cardiovascular Function: Hemodynamically Stable Hydration Status: Adequately Hydrated Nausea & Vomiting: No Nausea or Vomiting Pain: Pt. Denies Any Pain Peripheral Nerve Block: Patient did not receive a nerve block
== END 2022-04-20 12:35 | disposition home or self-care (01) ==
PROVIDERS: PCP Nurse Practitioner Family; Visit Provider Surgery
PROC: (CPT 11770; principal; 2022-04-20 07:30)
DX: L05.91 Pilonidal cyst without abscess (principal); E66.9 Obesity, unspecified; F31.9 Bipolar disorder, unspecified
CPT/HCPCS: 11770; 81025; J0690; J1100; J1885; J2250; J2405

== ENCOUNTER → 2022-04-27 09:41 | Outpatient (BNVA) | payer MEDICARE, MEDICAID, SELFPAY | PROVIDERS: PCP Nurse Practitioner Family; Referring Provider Nurse Practitioner Family; Visit Provider Surgery | DX: Z48.817 Encounter for surgical aftercare following surgery on the skin and subcutaneous tissue (principal); L05.91 Pilonidal cyst without abscess ==

== ENCOUNTER 2022-04-30 13:19 | Outpatient (CLI) | payer MEDICARE, MEDICAID, SELFPAY ==
--- NOTE | 2022-04-30 13:15 | DI.US_ITS ---
Exam(s) US LOWER EXTREMITY VENOUS LT EXAM: US LOWER EXTREMITY VENOUS LT CLINICAL HISTORY: calf pain, pain left calf, post op, M79.662. TECHNIQUE: Lower extremity venous ultrasound performed using grayscale, color-flow, and spectral Do ppler analysis. COMPARISON: No exams were available for comparison FINDINGS: The common femoral, femoral and popliteal veins demonstrate normal compressibility, augmentation, and color Doppler. The posterior tibial veins are patent. No saphenous vein thrombosis or other superfi cial venous thrombosis is seen. No hematoma or Gregory's cyst is seen. IMPRESSION: Negative lower extremity ultrasound. No evidence of DVT. DATA REPOSITORY:
== END 2022-04-30 13:39 ==
LOC: DI 13:20
PROVIDERS: PCP Nurse Practitioner Family; Visit Provider Surgery
DX: M79.662 Pain in left lower leg (principal); L05.91 Pilonidal cyst without abscess; F17.210 Nicotine dependence, cigarettes, uncomplicated; G89.29 Other chronic pain; M47.812 Spondylosis without myelopathy or radiculopathy, cervical region
CPT/HCPCS: 93971

== ENCOUNTER → 2022-05-05 07:55 | Outpatient (BNVA) | payer MEDICARE, MEDICAID, SELFPAY | PROVIDERS: PCP Nurse Practitioner Family; Referring Provider Nurse Practitioner Family; Visit Provider Surgery | DX: Z48.817 Encounter for surgical aftercare following surgery on the skin and subcutaneous tissue (principal) ==

== ENCOUNTER → 2022-05-11 13:08 | Outpatient (BNVA) | payer MEDICARE, MEDICAID, SELFPAY | PROVIDERS: PCP Nurse Practitioner Family; Referring Provider Nurse Practitioner Family; Visit Provider Surgery | DX: L05.91 Pilonidal cyst without abscess (principal); T81.31XD Disruption of external operation (surgical) wound, not elsewhere classified, subsequent encounter; E66.9 Obesity, unspecified ==

== ENCOUNTER → 2022-05-19 14:02 | Outpatient (BNVA) | payer MEDICARE, MEDICAID, SELFPAY | PROVIDERS: PCP Nurse Practitioner Family; Referring Provider Nurse Practitioner Family; Visit Provider Surgery | DX: Z48.817 Encounter for surgical aftercare following surgery on the skin and subcutaneous tissue (principal); T81.31XD Disruption of external operation (surgical) wound, not elsewhere classified, subsequent encounter | CPT/HCPCS: 99213 ==

== ENCOUNTER → 2022-06-09 12:46 | Outpatient (BNVA) | payer MEDICARE, MEDICAID, SELFPAY | PROVIDERS: PCP Nurse Practitioner Family; Referring Provider Nurse Practitioner Family; Visit Provider Surgery | DX: T81.31XD Disruption of external operation (surgical) wound, not elsewhere classified, subsequent encounter (principal); Z98.890 Other specified postprocedural states | CPT/HCPCS: 99213 ==

== ENCOUNTER 2023-01-08 22:16 | Emergency (ER) | payer MEDICARE, MEDICAID, SELFPAY ==
[2023-01-08] VITALS (15 sets, daily range): BP systolic 130–178; BP diastolic 92–140; PULSE 75–104; RESP 24; TEMP 36.9; O2SAT 90–99
[2023-01-08] MEDS: fentaNYL 100 MCG/2 ML VIAL (22:25)
[2023-01-08] MEDS: fentaNYL 100 MCG/2 ML VIAL 50 MCG IVP (22:25)
--- NOTE | 2023-01-08 22:30 | DI.RAD_ITS ---
Exam(s) XR TIB/FIB RT EXAM: XR TIB/FIB RT CLINICAL HISTORY: Right skin avulsion lower extremity. TECHNIQUE: 2D digital imaging was performed. COMPARISON: CR XR TIB/FIB RT from 01/01/2022 FINDINGS: Two views There is a prominent area of soft tissue injury on the medial aspect of the calf. Air is seen in the subcutaneous fat tissues. No radiopaque foreign body. No fractures. No evidence of osteomyelitis. Bone density normal. No osseous lesions. IMPRESSION: Soft tissue injury. No osseous findings. No radiopaque foreign body. DATA REPOSITORY: RADIATION DOSE DELIVERED:
[2023-01-08 22:42] LABS: Abs Immature Grans 0.09 10^3/uL (0.0-0.06); Absolute Basophil Count 0.06 10^3/uL (0.0-0.2); Absolute Eosinophil Count 0.17 10^3/uL (0.0-0.7); Absolute Lymphocyte Count 3.96 10^3/uL (1.2-3.4); Absolute Neutrophil Count 15.18 10^3/uL (1.2-6.7); Basophils % 0.3; Eosinophils % 0.8; HCT 45.5 % (36.0-46.0); HGB 16.1 g/dL (11.2-15.7); Immature Grans % 0.4; Lymphocytes % 19.2; MCH 31.4 pg (27.0-33.0); MCHC 35.4 % (32.0-36.0); MCV 89 fL (80-95); MPV 8.9 fL (8.0-11.0); Monocytes % 5.8; Neutrophils % 73.5; Platelet Count 406 10^3/uL (130-400); RBC 5.12 10^6/uL (3.93-5.22); RDW-SD 45.6 fL; WBC 20.65 10^3/uL (4.4-10.8)
[2023-01-08] MEDS: ceFAZolin 2 GM/50 ML BAG IVPB (22:45)
[2023-01-08] MEDS: Normal Saline 1,000 ML 1000 ML IV (22:45)
[2023-01-08] MEDS: Ketorolac 15 MG/ML VIAL IVP (22:45)
[2023-01-08] MEDS: HYDROmorphone 2 MG/ML SYR 0.5 MG IVP (22:45)
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
[2023-01-08 22:54] LABS: Anion Gap 12.9 mmol/L (3-11); BUN 13 mg/dL (7-18); CO2 24.1 mmol/L (21.0-32.0); CREATININE 1.1 mg/dL (0.55-1.02); Calcium 8.7 mg/dL (8.5-10.1); Chloride 102 mmol/L (98-107); Estimated GFR 63.94 (mL/min/1.73m2); Glucose 174 mg/dL (74-106); Potassium 3.1 mmol/L (3.5-5.1); Sodium 139 mmol/L (136-145)
[2023-01-08 23:00] LABS: HCG Qual (Serum) Negative
--- NOTE | 2023-01-08 23:15 | DI.RAD_ITS ---
Exam(s) XR PELVIS AP EXAM: XR PELVIS AP CLINICAL HISTORY: Trauma. TECHNIQUE: 2D digital imaging was performed. COMPARISON: No exams were available for comparison FINDINGS: Single AP view. No evidence of pelvic nor hip fracture. Bone density normal. Hips unremarkable. No osseous lesions . Tubal ligation clips noted in both sides of the pelvis IMPRESSION: No acute osseous findings in the pelvis and hips. DATA REPOSITORY: RADIATION DOSE DELIVERED:
--- NOTE | 2023-01-08 23:15 | DI.RAD_ITS ---
Exam(s) XR PORTABLE CHEST AP EXAM: XR PORTABLE CHEST AP CLINICAL HISTORY: Falling. TECHNIQUE: 2D digital imaging was performed. COMPARISON: No exams were available for comparison FINDINGS: Single AP portable view. Heart size is upper normal. The mediastinum is not widened. Lungs are clear. No infiltrates nor obvious pleural effusions. IMPRESSION: No acute pulmonary findings on this single AP portable view of the chest. DATA REPOSITORY: RADIATION DOSE DELIVERED:
--- NOTE | 2023-01-08 23:15 | RT.EKG_ITS ---
APPROVED REPORT Exam: Resting ECG Reason for Exam: Crack Patient Location: E HR:65 bpm ECG Measurements Heart Rate 65 AXIS WI 162 P 71 QRSd 88 QRS 74 QT 416 T 59 QTc 435 Conclusion Sinus rhythm...normal P axis, V-rate 60- 99 Narrow complex normal sinus rhythm at a rate of 65. Normal axis. Intervals within normal limits. N o ST segment abnormalities. T wave flattening in aVL. No prior for comparison. No acute injury thais ramos
[2023-01-08] MEDS: Ketamine 500 MG/10 ML VIAL 35 MG IVP (23:29)
[2023-01-08 23:38] LABS: Troponin I < 50 ng/L (<or=60)
[2023-01-08 23:52] LABS: ETHANOL BLOOD < 3.0 mg/dL (<10)
[2023-01-09] VITALS: RESP 23; O2SAT 97
[2023-01-09 00:01] VITALS: BP 159/105; PULSE 73; RESP 16; O2SAT 97
--- NOTE | 2023-01-09 00:03 | DI.VRAD_ITS ---
PROCEDURE INFORMATION: Exam: XR Pelvis Exam date and time: 01/08/2023 11:33 PM Age: 42 years old Clinical indication: Injury or trauma; Fall; Blunt trauma (contusions or hematomas); Bilateral; Pelvic region TECHNIQUE: Imaging protocol: Radiologic exam of the pelvis. Views: 1 or 2 view. COMPARISON: CT ABD PELVIS WITH CONTRAST 09/04/2016 2:31 PM FINDINGS: Bones/joints: No pelvic fracture or diastasis. Bilateral hips are unremarkable. Soft tissues: Pelvic soft tissues are unremarkable. Organs: Bilateral fallopian tube occlusion surgery. IMPRESSION: 1. No fracture or diastasis. 2. No acute soft tissue pathology. Dictated and Authenticated by: Tristen Mar MD. Ordering:ANIA Ding MD
--- NOTE | 2023-01-09 00:04 | DI.VRAD_ITS ---
PROCEDURE INFORMATION: Exam: XR Chest Exam date and time: 01/08/2023 11:29 PM Age: 42 years old Clinical indication: Injury or trauma; Fall; Blunt trauma (contusions or hematomas) TECHNIQUE: Imaging protocol: Radiologic exam of the chest. Views: 1 view. COMPARISON: MR CERVICAL SPINE WO 03/15/2019 3:54 PM FINDINGS: Lungs: Unremarkable. No consolidation. Pleural spaces: Unremarkable. No pleural effusion. No pneumothorax. Heart/Mediastinum: Unremarkable. No cardiomegaly. Bones/joints: Unremarkable. IMPRESSION: No acute findings. Dictated and Authenticated by: Tristen Mar MD. Ordering:ANIA Ding MD
--- NOTE | 2023-01-09 00:04 | DI.VRAD_ITS ---
PROCEDURE INFORMATION: Exam: XR Right Tibia and Fibula Exam date and time: 01/08/2023 11:24 PM Age: 42 years old Clinical indication: Injury or trauma; Fall; Laceration; Lower leg; Right; Foreign body involvement not specified TECHNIQUE: Imaging protocol: Radiologic exam of the right tibia and fibula. Views: 2 views. COMPARISON: MR LOWER JOINT RT WO 02/04/2022 2:06 PM FINDINGS: Bones/joints: No fracture. No dislocation. Knee joint and ankle joint are unremarkable. Soft tissues: Soft tissue swelling over the medial lower leg with features of soft tissue gas consistent with laceration injury. No foreign body. IMPRESSION: 1. Soft tissue laceration. No foreign body. 2. No fracture or dislocation. Dictated and Authenticated by: Tristen Mar MD. Ordering:ANIA Ding MD
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
[2023-01-09 00:15] VITALS: O2SAT 97
== END 2023-01-09 00:35 | disposition short-term general hospital (02) ==
PROVIDERS: Emergency Provider Emergency Medicine; PCP Nurse Practitioner Family
DX: S81.801A Unspecified open wound, right lower leg, initial encounter (principal); D72.829 Elevated white blood cell count, unspecified; E87.6 Hypokalemia; F14.90 Cocaine use, unspecified, uncomplicated; F17.210 Nicotine dependence, cigarettes, uncomplicated; Z79.899 Other long term (current) drug therapy; W17.81XA Fall down embankment (hill), initial encounter; Y93.89 Activity, other specified; Y92.017 Garden or yard in single-family (private) house as the place of occurrence of the external cause; Y99.9 Unspecified external cause status
CPT/HCPCS: 80048; 86850; 86900; 86901; 90472; 93005; 96374; 96375; 96376; 99284; 71045; 72170; 73590; 80320; 84484; 84703; 85025; 93010; J0690; J1170; J1885; J3010

== ENCOUNTER → 2023-01-27 14:24 | Outpatient (BNVA) | payer MEDICARE, MEDICAID, SELFPAY | PROVIDERS: PCP Nurse Practitioner Family; Referring Provider Nurse Practitioner Family; Visit Provider Surgery | DX: S81.801A Unspecified open wound, right lower leg, initial encounter (principal); X58.XXXA Exposure to other specified factors, initial encounter; F17.210 Nicotine dependence, cigarettes, uncomplicated | CPT/HCPCS: 11043; 99213 ==

== ENCOUNTER → 2023-02-03 11:40 | Outpatient (BNVA) | payer MEDICARE, MEDICAID, SELFPAY | PROVIDERS: PCP Nurse Practitioner Family; Referring Provider Nurse Practitioner Family; Visit Provider Physical Therapy Assistant | DX: S81.801D Unspecified open wound, right lower leg, subsequent encounter; X58.XXXD Exposure to other specified factors, subsequent encounter | CPT/HCPCS: 97605; 99215 ==

== ENCOUNTER → 2023-02-11 15:17 | Outpatient (BNVA) | payer MEDICARE, MEDICAID, SELFPAY | PROVIDERS: PCP Nurse Practitioner Family; Referring Provider Nurse Practitioner Family; Visit Provider Physical Therapy Assistant | DX: S81.801D Unspecified open wound, right lower leg, subsequent encounter (principal); X58.XXXD Exposure to other specified factors, subsequent encounter | CPT/HCPCS: 99214; 99350 ==

== ENCOUNTER 2023-07-30 09:04 | Emergency (ER) | payer MEDICARE, MEDICAID, SELFPAY ==
[2023-07-30 09:09] VITALS: BP 127/112; PULSE 88; RESP 20; TEMP 36.7; O2SAT 99
--- NOTE | 2023-07-30 09:20 | ED.GENADUL_ITS ---
Discharge Plan Disposition Patient Disposition: Home Discharge Details Clinical Impression: URI (upper respiratory infection), Chronic pharyngitis Primary Care Provider: Becky Jenkins ED Provider: Quique Rodríguez Home Meds and New Rx's Prescriptions: New benzonatate 200 mg capsule 200 mg PO TID PRN (Reason: cough) Qty: 30 0RF prednisone 20 mg tablet 40 mg PO DAILY Qty: 8 0RF Continued acetaminophen [Tylenol Extra Strength] 500 mg tablet 1,000 mg PO Q6H PRN (DME) Aerochamber MV Spacer See Rx Instructions .ROUTE .MEDSUPPLY Qty: 1 0RF Rx Instructions: Use with albuterol inhaler melatonin 10 mg capsule 10 mg PO HS PRN (DME) nebulizers Misc See Rx Instructions .Route Qty: 1 0RF Rx Instructions: As directed nicotine (polacrilex) 4 mg lozenge 4 mg buccal .Q2-4H PRN (Reason: nicotine cravings) Qty: 108 3RF fluticasone propionate 110 mcg/actuation Hfa Aerosol Inhaler 1 puff INHALATION BID duloxetine 60 mg capsule,delayed release(DR/EC) 60 mg PO DAILY Qty: 90 3RF hydroxyzine HCl 50 mg tablet 100 mg PO QHS Qty: 180 3RF celecoxib [Celebrex] 100 mg capsule 100 mg PO DAILY PRN (Reason: pain) Qty: 90 1RF lidocaine 5 % adhesive patch,medicated 1 patch topical DAILY PRN (Reason: pain) Qty: 30 1RF Rx Instructions: Apply patch to most painful area, may leave on for up to 12 hrs nicotine 21 mg/24 hr patch 24 hour 1 patch transdermal DAILY Qty: 42 0RF Rx Instructions: Apply 1 patch daily for 6 weeks nicotine 7 mg/24 hr patch 24 hour 1 patch transdermal DAILY Qty: 14 6RF Rx Instructions: Apply 1 patch daily for 2 wks after 14mg patch albuterol sulfate 1.25 mg/3 mL solution for nebulization 1.25 mg Inhalation Q6H PRN (Reason: shortness of breath or wheezing) Qty: 90 4RF omeprazole 40 mg capsule,delayed release(DR/EC) 40 mg PO DAILY Qty: 90 3RF gabapentin 600 mg tablet 600 mg PO TID Qty: 270 3RF oxycodone 5 mg tablet 5 mg PO DAILY MDD 5 PRN (Reason: pain) Qty: 14 0RF Rx Instructions: Take one tab 30 minutes before dressing changes naloxone [Narcan] 4 mg/actuation spray,non-aerosol 1 spray intranasal Q2-3M PRN (Reason: opioid overdose) Qty: 2 4RF Rx Instructions: spray 1 dose into ONE nostril; alternate nostrils w each dose until help arrives clonazepam 0.5 mg tablet,disintegrating 0.5 - 1 mg PO TID Qty: 112 2RF Rx Instructions: Take 1 tab in morning and afternoon and 2 tabs at bedtime albuterol sulfate [ProAir HFA] 90 mcg/actuation HFA aerosol inhaler 2 puff Inhalation Q6H PRN (Reason: shortness of breath or wheezing) Qty: 18 4RF ondansetron HCl 4 mg tablet 4 mg PO Q8H PRN (Reason: nausea and vomiting) Qty: 60 0RF Discharge Instructions Instructions: Pharyngitis (ED), Upper Respiratory Infection (ED) Additional Instructions: At this time you are negative for strep, COVID, and influenza. Your symptoms are consistent with viral upper respiratory infection along with chronic pharyngitis. We will continue steroids and you have been given a dose for today so please do not take any more steroids today but start them tomorrow morning. I have also prescribed you a cough suppressant. You may also use appropriate chsm-hpe-rvwvmit medications that match your symptoms. Stay well-hydrated and return to the emergency department immediately for any new or significant worsening of symptoms. If not improving follow-up with your primary care provider later this week. Referrals: Becky Jenkins NP [Primary Care Provider] - 5 days HPI General Mode of arrival: ambulatory . Date/Time Provider Initiated Documentation: 07/30/23 09:07 . Limitations to Documentation: no limitations . Information obtained by: patient and RN notes reviewed . History of Present Illness 43 year old F presents to the emergency department with the chief complaint of nasal congestion, cough, sorethroat, described as moderate, Patient started experiencing this day(s) (2) and it has been constant. No relieving factors improve symptom(s), No exacerbating factors reported . Patient did receive the following treatments prior to arrival, none Related Data Home Medications Medication Instructions Recorded Confirmed acetaminophen 500 mg tablet 1,000 mg PO Q6H PRN 08/29/18 07/30/23 (Tylenol Extra Strength) inhalational spacing device #1 ea 05/05/20 02/11/23 (Aerochamber MV spacer) melatonin 10 mg capsule 10 mg PO HS PRN 09/23/20 07/30/23 nebulizers #1 ea 12/08/21 02/11/23 nicotine (polacrilex) 4 mg buccal 4 mg buccal .Q2-4H PRN nicotine 12/25/21 07/30/23 lozenge cravings #108 ea fluticasone propionate 110 1 puff inhalation BID 04/06/22 07/30/23 mcg/actuation HFA aerosol inhaler duloxetine 60 mg capsule,delayed 60 mg PO DAILY #90 caps 07/29/22 07/30/23 release celecoxib 100 mg capsule (Celebrex) 100 mg PO DAILY PRN pain #90 caps 11/03/22 07/30/23 hydroxyzine HCl 50 mg tablet 100 mg (2 x 50 mg) PO QHS #180 tabs 11/03/22 07/30/23 lidocaine 5 % topical patch 1 patch topical DAILY PRN pain #30 11/03/22 07/30/23 ea nicotine 21 mg/24 hr daily 1 patch transdermal DAILY #42 ea 11/10/22 07/30/23 transdermal patch nicotine 7 mg/24 hr daily 1 patch transdermal DAILY #14 ea 11/10/22 07/30/23 transdermal patch albuterol sulfate 1.25 mg/3 mL 1.25 mg (3 mL) inhalation Q6H PRN 12/17/22 07/30/23 solution for nebulization shortness of breath or wheezing #90 mL omeprazole 40 mg capsule,delayed 40 mg PO DAILY #90 tab-caps 01/06/23 07/30/23 release gabapentin 600 mg tablet 600 mg PO TID #270 tabs 01/17/23 07/30/23 oxycodone 5 mg tablet 5 mg PO DAILY PRN pain #14 tabs 02/21/23 07/30/23 naloxone 4 mg/actuation nasal 1 spray intranasal Q2-3M PRN 02/23/23 07/30/23 spray (Narcan) opioid overdose #2 ea clonazepam 0.5 mg disintegrating 0.5 - 1 mg (1 - 2 x 0.5 mg) PO TID 03/18/23 07/30/23 tablet #112 tabs albuterol sulfate 90 mcg/actuation 2 puff inhalation Q6H PRN 04/27/23 07/30/23 aerosol inhaler (ProAir HFA) shortness of breath or wheezing #18 grams ondansetron HCl 4 mg tablet 4 mg PO Q8H PRN nausea and 07/06/23 07/30/23 vomiting #60 tabs benzonatate 200 mg capsule 200 mg PO TID PRN cough #30 caps 07/30/23 prednisone 20 mg tablet 40 mg (2 x 20 mg) PO DAILY #8 tabs 07/30/23 Previous Rx's Medication Instructions Recorded inhalational spacing device #1 ea 05/05/20 (Aerochamber MV spacer) nebulizers #1 ea 12/08/21 nicotine (polacrilex) 4 mg buccal 4 mg buccal .Q2-4H PRN nicotine 12/25/21 lozenge cravings #108 ea duloxetine 60 mg capsule,delayed 60 mg PO DAILY #90 caps 07/29/22 release celecoxib 100 mg capsule (Celebrex) 100 mg PO DAILY PRN pain #90 caps 11/03/22 hydroxyzine HCl 50 mg tablet 100 mg (2 x 50 mg) PO QHS #180 tabs 11/03/22 lidocaine 5 % topical patch 1 patch topical DAILY PRN pain #30 11/03/22 ea nicotine 21 mg/24 hr daily 1 patch transdermal DAILY #42 ea 11/10/22 transdermal patch nicotine 7 mg/24 hr daily 1 patch transdermal DAILY #14 ea 11/10/22 transdermal patch albuterol sulfate 1.25 mg/3 mL 1.25 mg (3 mL) inhalation Q6H PRN 12/17/22 solution for nebulization shortness of breath or wheezing #90 mL omeprazole 40 mg capsule,delayed 40 mg PO DAILY #90 tab-caps 01/06/23 release gabapentin 600 mg tablet 600 mg PO TID #270 tabs 01/17/23 oxycodone 5 mg tablet 5 mg PO DAILY PRN pain #14 tabs 02/21/23 naloxone 4 mg/actuation nasal 1 spray intranasal Q2-3M PRN 02/23/23 spray (Narcan) opioid overdose #2 ea clonazepam 0.5 mg disintegrating 0.5 - 1 mg (1 - 2 x 0.5 mg) PO TID 03/18/23 tablet #112 tabs albuterol sulfate 90 mcg/actuation 2 puff inhalation Q6H PRN 04/27/23 aerosol inhaler (ProAir HFA) shortness of breath or wheezing #18 grams ondansetron HCl 4 mg tablet 4 mg PO Q8H PRN nausea and 07/06/23 vomiting #60 tabs benzonatate 200 mg capsule 200 mg PO TID PRN cough #30 caps 07/30/23 prednisone 20 mg tablet 40 mg (2 x 20 mg) PO DAILY #8 tabs 07/30/23 Allergies Allergy/AdvReac Type Severity Reaction Status Date / Time adhesive Allergy Mild Skin Rash Verified 07/30/23 09:15 divalproex sodium Allergy Mild Skin Rash Verified 07/30/23 09:15 [From Depakote] topiramate Allergy Mild Skin Rash Verified 07/30/23 09:15 varenicline tartrate Allergy Mild Skin Rash Verified 07/30/23 09:15 [From Chantix] Fish Containing Products Allergy Unknown Other (See Verified 07/30/23 09:15 Comment) shellfish derived Allergy Unknown Other (See Verified 07/30/23 09:15 Comment) tramadol AdvReac Intermediate Nausea and Verified 07/30/23 09:15 vomiting venlafaxine AdvReac Intermediate Diarrhea Verified 07/30/23 09:15 and increased headaches oxycodone AdvReac Mild nausea Verified 07/30/23 09:15 General Stated Complaint: Sorethroat RED: 4 Review of Systems Constitutional Constitutional: Reports chills, Reports fever(s), Denies headache(s) and Reports malaise ENT Ears, Nose, Mouth, and Throat: Reports otalgia, Denies headache(s), Denies hoarseness, Denies lip swelling, Denies mouth lesions, Reports nasal congestion, Reports odynophagia, Reports sore throat, Denies throat swelling and Denies tongue swelling Cardiovascular Cardiovascular: Denies chest pain Respiratory Respiratory: Denies chest congestion and Reports cough Gastrointestinal Gastrointestinal: Reports odynophagia Neurologic Neurologic: Denies headache(s) Allergic/Immunologic Allergic/Immunologic: Denies lip swelling, Denies throat swelling and Denies tongue swelling Exam Const General: cooperative Orientation: alert, awake and oriented x3 HENMT Head: normal to inspection and normocephalic Ears: hearing grossly normal bilaterally, external ears normal, TM's normal bilaterally and mastoids normal General nose exam: external nose normal and nares normal Face and sinus: normal facial exam Mouth: oral mucosae normal, lip normal, tongue normal, no audible dysphonia, no drooling and no trismus Throat: uvula midline, abnormal tonsil bilaterally erythema and no peritonsillar masses Neck Neck: normal visual inspection, full ROM, no lymphadenopathy and no meningeal signs Resp Effort & Inspection: normal respiratory effort, able to speak in complete sentences and no stridor Auscultation: clear to auscultation bilaterally Cardio Rate: regular rate Rhythm: regular rhythm Heart Sounds: S1 normal and S2 normal Skin General skin exam: no rashes or lesions noted Course Vital Signs Vital signs: Vital Signs Temperature 36.7 C 07/30/23 09:09 Pulse 88 07/30/23 09:09 Respiratory Rate 20 07/30/23 09:09 Blood Pressure 127/112 H 07/30/23 09:09 Pulse Oximetry 99 07/30/23 09:09 Temperature 36.7 C 07/30/23 09:09 Pulse 88 07/30/23 09:09 Respiratory Rate 20 07/30/23 09:09 Respiratory Effort Normal, Non-Labored 07/30/23 09:17 Blood Pressure 127/112 H 07/30/23 09:09 Pulse Oximetry 99 07/30/23 09:09 Oxygen Delivery Method Room Air 07/30/23 09:09 Oxygen Flow Rate 0 07/30/23 09:09 Medical Decision Making Patient presenting to the emergency department for chief complaint of nasal congestion, cough, sore throat, not feeling well. She reports chronic pharyngitis and has seen ENT over the years and diagnosed with GERD and associated pharyngitis after multiple scans and barium swallow studies. Patient denies any use of [id number]-zkq-[id number]'s help with symptoms,. Significant past medical history of smoking, opioid abuse, bipolar. Exam consistent with Pharyngitis /URI . no signs of deep neck space infection ( Retropharyngeal abscess, Daryl's angina, Parapharyngeal space infection, Peritonsillar Abscess ([employer]LL[employer] MACH[employer])) or Epiglottitis. Pt non toxic and stable. Will perform viral antigen sw ab COVID/flu and strep pending results will give Decadron. Patient negative for strep, COVID and influenza. Culture was sent. Do not feel that any further testing is required given chronic nature of pharyngitis but will continue steroid burst along with Tessalon Perles to help with symptoms. Patient otherwise to follow-up with primary care provider if not improving or return for new or worsening symptoms. After discussion of diagnosis and plan of care patient has no further needs, questions, or concerns and states clear understanding to return to the emergency department for any worsening symptoms. This documentation was generated using [employer] system, please disregard any oddities of phrase or misspellings. Quality:SDOH Health Related Social Needs: No Data to Display PFSH All Active Problems (Updated 07/30/23 @ 09:50 by Quique Rodríguez NP) Chronic pharyngitis (Acute) URI (upper respiratory infection) (Acute) Marijuana use, continuous (Acute) Substance abuse (Acute) UDS was positive for fentanyl/cocaine/opioids/THC/amphetamines/tricyclics 01/22 Smoker unmotivated to quit (Acute) Degloving injury of right lower leg (Acute) Posterior vitreous detachment of left eye (Acute ~12/31/22) Chronic pain syndrome (Chronic) Myofascial pain dysfunction syndrome (Acute) Cervical spondylosis (Acute) Bipolar disorder (Chronic) Rosacea (Chronic) Dysmenorrhea (Chronic) Fibromyalgia (Chronic) Insomnia (Chronic) Degenerative joint disease of cervical spine (Chronic) GERD (gastroesophageal reflux disease) (Chronic) Mild persistent asthma (Chronic) IBS (irritable bowel syndrome) (Chronic) Cigarette smoker (Acute) Generalized anxiety disorder (Chronic) PTSD (post-traumatic stress disorder) (Chronic) Hyperlipidemia (Chronic) Chronic low back pain (Chronic) Obesity (Chronic) Herpes simplex infection of skin (Acute) Lumbosacral radiculitis (Acute) Pilonidal cyst (Acute) Medical History Chronic neck pain Prediabetes Suicide attempt At ages [age] Surgical History S/P tubal ligation H/O LEEP S/P cholecystectomy S/P colonoscopy (01/12/13) History of esophagogastroduodenoscopy (EGD) (01/12/13) Family History Mother , At 66 from cirrhosis Diabetes Essential hypertension Depression Heart disease Asthma Liver disease Father No problems noted. Brother No problems noted. Brother Lung cancer Sister , At 32 No problems noted. Sister DJD (degenerative joint disease) Asthma Sister No problems noted. Sister No problems noted. Son No problems noted. Daughter No problems noted. Maternal Grandfather No problems noted. Maternal Grandmother Breast cancer Paternal Grandfather Leukemia Paternal Grandmother Pancreatic cancer Social History Smoking/Tobacco Use Status: Current every day Tobacco Type: cigarettes Tobacco: How many years used: 26 Quit status: considering quitting Smoking risk assessment performed?: Yes Alcohol Intake: current Alcohol Intake frequency: holidays/special occasions only Drug use: Daily Substance use type: marijuana Details: last used 04/19/22 Household members: spouse and other Details: spouse Brandan Number of Children: 2 current occupation: Disabled Pets and animals: Yes (3 dogs) What is your relationship status?: Panel score (0-1 are the most socially isolated patients): 1 What type of physical activity do you participate in: walking and independent ambulation Duration: 15-30 minutes/day Frequency: 3-4 times per week Seatbelt use: always Do you feel safe at home: Yes Do you feel safe in your relationship?: Yes Female Reproductive History Menstrual control method: permanent sterilization History History 5 Para Hx # Term Pregnancies 2 Multiple births Hx # Pregnancies Ectopic pregnancies AB induced Hx Number of Living Children 2 AB spontaneous PAWSS Have you Been Recently Intoxicated or Drunk Within the Last 30 days?: No Have you Ever Experienced Previous Episodes of Alcohol Withdrawal?: No Have you ever Experienced Withdrawal Seizures?: No Have you ever Experienced Delirium Tremens(DT)s?: No Have you ever undergone Alcohol Rehabilitation Treatment (i.e, inpt ot outpatient treatment programs)?: No Have you ever Experienced Blackouts?: No Have you ever Combined Alcohol with other Downers within the last 90 days?: No Have you ever Combined Alcohol with any other Substance of Abuse during the last 90 days?: No Positive Blood Alcohol level on Presentation? [PCS.BAL]: No Evidence of Increased Autonomic Activity (i.e. HR>120, tremor, sweating, agitation, nausea)?: No Result: 0
[2023-07-30 10:07] VITALS: BP 127/112; PULSE 88; RESP 20; TEMP 36.7; O2SAT 99
[2023-07-30] MEDS: Dexamethasone 10 MG/ML VIAL PO (10:08)
[2023-07-30 10:10] VITALS: BP 127/112; PULSE 88; RESP 20; TEMP 36.7; O2SAT 99
--- NOTE | 2023-08-01 12:24 | NUR.NOTE ---
Accessed Pt chart to obtain the name of antibiotics given to Pt. I gave the Specimen document to Dr Modi to review.
== END 2023-07-30 10:12 | disposition home or self-care (01) ==
PROVIDERS: Emergency Provider Nurse Practitioner Family; PCP Nurse Practitioner Family
DX: J06.9 Acute upper respiratory infection, unspecified (principal); J31.2 Chronic pharyngitis; R05.1 Acute cough
CPT/HCPCS: 87880; 99283; 87081; J1100

== ENCOUNTER 2024-08-01 02:10 | Outpatient (CLI) | payer MEDICARE, SELFPAY ==
--- NOTE | 2024-08-01 07:30 | DI.MRI_ITS ---
Exam(s) MR LUMBAR SPINE WO EXAM: MR LUMBAR SPINE WO CLINICAL HISTORY: chronic back pain with radiculopathy,m54.16. TECHNIQUE: Multiplanar multisequence MRI of the Lumbar spine was performed. COMPARISON: MR MR LUMBAR SPINE WO from 03/26/2022 FINDINGS: Conus medullaris is at normal level. There is no evidence of conus mass nor subjacent clumping of in trathecal nerve roots to suggest arachnoiditis. 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 Bones:There are no fractures nor ominous osseous lesions in the lumbar vertebral bodies and visualize d sacrum. Small benign intraosseous hemangioma is again noted in the left side of T12 vertebral body , unchanged. With respect to the individual levels... T12-L1: Unremarkable L1-2: Normal disc height and signal. No disc herniation nor central canal stenosis.No foraminal steno sis L2-3: Normal disc height. No disc herniation nor central canal stenosis.No foraminal stenosis.No face t arthropathy. L3-4: Normal disc height. No disc herniation or central canal stenosis.No foraminal stenosis.No face t arthropathy. L4-5: Normal disc height. Mild central subligamentous annular bulging, unchanged from previous. Bor derline mild central canal stenosis, unchanged. Annular bulging extends into the floor the exiting n eural foramina on the left side. There is mild left-sided foraminal stenosis again noted, unchanged. No right-sided foraminal stenosis. No obvious degenerative changes in the facet joints.. L5-S1: Preserved disc height and signal. Again noted is a central-small disc protrusion which remain s subligamentous and unchanged in size and without obvious associated nerve root impingement. Centra l canal dimensions are lower normal at this level. There is no significant foraminal stenosis. Soft tissues: paraspinal soft tissues appear unremarkable. IMPRESSION: 1. Small central subligamentous disc herniation again noted L5-S1 level, unchanged in size and not as sociated with obvious neural impingement. Central canal dimensions at this level are lower normal an d there is no foraminal stenosis at this level. 2. Borderline central canal stenosis at L4-5 level again noted, unchanged and mild left-sided foramin al stenosis again noted at this level, also unchanged. There is no foraminal stenosis on the opposit e-right side at this level. No prominent facet arthropathy at this level. 3. Findings exhibit minimal if any significant change when compared to the prior MRI scan of March 2022. DATA REPOSITORY:
--- NOTE | 2024-08-01 07:30 | DI.MRI_ITS ---
Exam(s) MR CERVICAL SPINE WO EXAM: MR CERVICAL SPINE WO CLINICAL HISTORY: neck pain with radiation to BUE,cervical radiculopathy,m54.12 TECHNIQUE: Multiplanar multisequence MRI of the cervical spine was performed without intravenous con trast. COMPARISON: MR MR CERVICAL SPINE WO from 03/15/2019 FINDINGS: BONES: Vertebral body heights are maintained. Intervertebral disc spaces are normal. Alignment is nor mal. There are degenerative endplate signal changes at C5-C6. CERVICAL CORD: Craniovertebral junction is unremarkable. The cervical cord is normal size and signal intensity. 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 C2-3: No disc herniation or bulge is identified. No significant central spinal canal or neural forami nal stenosis. C3-4: There is a small central disc herniation. No significant central spinal canal or neural foramin al stenosis C4-5: There is prominence of the osteophyte disc complex with mild effacement of the anterior subarac hnoid space. There is normal signal in the spinal cord. The AP diameter of the spinal canal is 9.6 mm . No neural foraminal stenosis is present. C5-6: There is prominence of the osteophyte disc complex with a face mint of the anterior subarachnoi d space. There is mild flattening of the anterior cervical spinal cord. There is normal signal in the spinal cord. The AP diameter is 7.4 mm. There is very mild narrowing of the neural foramen. C6-7: There is a small central disc herniation. No neural foraminal or central spinal canal stenosis is present.. C7-T1: No disc herniation or bulge is identified. No significant central spinal canal or neural shalonda inal stenosis IMPRESSION: 1. Degenerative changes in the cervical spine particularly at C5-C6 where there is central spinal can al and mild bilateral neural foraminal stenosis. 2. Multilevel degenerative changes in the cervical spine. 3. Mild central spinal canal narrowing at C4-C5 as described above. DATA REPOSITORY:
--- NOTE | 2024-08-01 12:55 | DI.MAMMO_ITS ---
Exam(s) MAMMO SCREENING EXAM: MAMMO SCREENING CLINICAL HISTORY: screening,z12.39 TECHNIQUE: Bilateral full field digital CC and MLO mammographic images were obtained with 3D tomosyn thesis and utilizing computer aided detection (CAD). COMPARISON: Available for comparison. FINDINGS: Masses/Architectural Distortion: None seen. Microcalcifications: No suspicious pleomorphic-type are seen. Skin Thickening/Nipple Retraction: None. IMPRESSION: 1. No significant interval change with no specific features of malignancy noted. 2. Unless there is more urgent need, screening mammography is recommended, as per [employer] guidelines. BI-RADS Category 1 - Negative Breast Density - Category B - Scattered areas of fibroglandular density Breast density category C or D implies that the patient has dense breast tissue. Dense breast tissue is very common and is not abnormal but dense breast tissue can make it harder to find cancer on a ma mmogram. Also, dense breast tissue may increase their breast cancer risk. This information about the result of the mammogram report was provided to the patient to raise their awareness. Use this report when you speak with the patient about their risks for breast cancer, which includes their family hist ory. At that time, you may recommend for more screening tests (Ultrasound or MRI) as they might be us eful based on their risk. A negative radiographic report should not delay biopsy if a dominant or clinically suspicious mass is present. Up to ten percent of cancers are not identified on mammography. A negative report may reinforce clinical impression. Adenosis and dense breasts may obscure an underlying neoplasm. False positive reports average 6 to 10%. Patient will receive a letter notifying them of these results.
--- NOTE | 2024-08-01 13:07 | DI.RAD_ITS ---
Exam(s) XR CHEST 2V PA LATERAL EXAM: XR CHEST 2V PA LATERAL CLINICAL HISTORY: Chronic cough,smoker,f05.3,f17.210 TECHNIQUE: 2D digital imaging was performed of the chest. Two images were obtained. PA and lateral views were obtained. COMPARISON: CR,XR XR PORTABLE CHEST AP from 01/08/2023 FINDINGS: MEDIASTINUM: Normal. HEART: Normal. PULMONARY VASCULATURE: Normal. LUNGS: Clear. PLEURAL SPACE: No pleural effusion or pneumothorax. BONE:Within normal limits for the patient's age. OTHER FINDINGS:Normal. IMPRESSION: No acute pulmonary findings. DATA REPOSITORY: RADIATION DOSE DELIVERED:
== END 2024-08-01 02:30 ==
LOC: DI 02:10
PROVIDERS: PCP Nurse Practitioner Family; Visit Provider Nurse Practitioner Family
DX: M54.12 Radiculopathy, cervical region (principal); M51.27 Other intervertebral disc displacement, lumbosacral region; R05.3 Chronic cough; F17.210 Nicotine dependence, cigarettes, uncomplicated; Z12.31 Encounter for screening mammogram for malignant neoplasm of breast
CPT/HCPCS: 77063; 77067; 71046; 72141; 72148

== ENCOUNTER 2024-08-01 02:52 | Outpatient (CLI) | payer MEDICARE, SELFPAY ==
[2024-08-01 12:43] LABS: Abs Immature Grans 0.08 10^3/uL (0.0-0.06); Absolute Basophil Count 0.05 10^3/uL (0.0-0.2); Absolute Eosinophil Count 0.36 10^3/uL (0.0-0.7); Absolute Lymphocyte Count 3.87 10^3/uL (1.2-3.4); Absolute Monocyte Count 0.68 10^3/uL (0.1-0.8); Absolute Neutrophil Count 5.65 10^3/uL (1.2-6.7); Basophils % 0.5 %; Eosinophils % 3.4 %; HCT 44.1 % (36.0-46.0); HGB 14.8 g/dL (11.2-15.7); Immature Grans % 0.7 %; Lymphocytes % 36.2 %; MCH 31.8 pg (27.0-33.0); MCHC 33.6 % (32.0-36.0); MCV 95 fL (80-95); MPV 9.1 fL (8.0-11.0); Monocytes % 6.4 %; Neutrophils % 52.8 %; Platelet Count 347 10^3/uL (130-400); RBC 4.66 10^6/uL (3.93-5.22); RDW 13.4 % (11.7-14.6); RDW-SD 46.4 fL; WBC 10.69 10^3/uL (4.4-10.8)
[2024-08-01 12:54] LABS: Hemoglobin A1C 5.6 % (<5.7)
[2024-08-01 13:08] LABS: ALT 28 U/L (14-59); AST 16 U/L (15-37); Albumin 3.9 g/dL (3.4-5.0); Alkaline Phosphatase 104 U/L (46-116); Anion Gap 8.6 mmol/L (3-11); BUN 11 mg/dL (7-18); Bilirubin, Total 0.3 mg/dL (0.2-1.0); CO2 27.4 mmol/L (21.0-32.0); CREATININE 0.8 mg/dL (0.55-1.02); Calcium 8.3 mg/dL (8.5-10.1); Calculated LDL 126 mg/dL (<100); Chloride 104 mmol/L (98-107); Cholesterol 239 mg/dL (<200); Estimated GFR 92.54 (mL/min/1.73m2); Glucose 127 mg/dL (74-106); HDL Cholesterol 45 mg/dL (>or=50); Potassium 4.4 mmol/L (3.5-5.1); Sodium 140 mmol/L (136-145); TSH (W/Ref FT4) 1.37 uIU/mL (0.36-3.74); Total Protein 7.4 g/dL (6.4-8.2); Triglyceride 343 mg/dL (<150)
[2024-08-02 09:52] LABS: HIV-1/2 Ag & Ab Screen Negative (Negative)
[2024-08-02 10:09] LABS: Hepatitis C Ab w Rflx HCV PCR Negative (Negative)
[2024-08-02 12:01] LABS: HBs Antibody, Quant <3.1 mIU/mL (See Note); Hep B Surface Ab Negative (See Note); Hepatitis B Core Antibody Positive (Negative); Hepatitis B Surface Antigen Negative (Negative)
== END 2024-08-01 02:53 | disposition home or self-care (01) ==
LOC: LBO 02:52
PROVIDERS: PCP Nurse Practitioner Family; Visit Provider Nurse Practitioner Family
DX: R68.89 Other general symptoms and signs (principal); R53.83 Other fatigue; E78.5 Hyperlipidemia, unspecified; Z11.59 Encounter for screening for other viral diseases; Z11.4 Encounter for screening for human immunodeficiency virus [HIV]; R73.01 Impaired fasting glucose
CPT/HCPCS: 36415; 80053; 80061; 86704; 86706; 86803; 87340; 87389; 83036; 84443; 85025

== ENCOUNTER 2025-03-15 17:23 | Emergency (ER) | payer MEDICARE, SELFPAY ==
[2025-03-15] VITALS (61 sets, daily range): BP systolic 70–175; BP diastolic 47–106; PULSE 52–89; RESP 12–32; TEMP 36.6; O2SAT 88–99
--- NOTE | 2025-03-15 17:15 | RT.EKG_ITS ---
APPROVED REPORT Exam: Resting ECG Reason for Exam: cardiac prob Patient Location: E HR:71 bpm ECG Measurements Heart Rate 71 AXIS DE 141 P 64 QRSd 86 QRS 73 QT 369 T 61 QTc 400 Conclusion Sinus rhythm...normal P axis, V-rate 60- 99 No STEMI
[2025-03-15 17:43] LABS: BE (Venous) 3 mmol/L (-2-3); HCO3 (Venous) 28 mmol/L (23-28); O2 Sat (Venous) 93 %; TCO2 (Venous) 24 mmol/L (24-29); pCO2 (Venous) 46 mmHg (41-51); pO2 (Venous) 57 mmHg
[2025-03-15] MEDS: MORPHine 10 MG/ML VIAL 8 MG IVP (17:43)
[2025-03-15] MEDS: Droperidol 5 MG/2 ML VIAL 2.5 MG IVP (17:43)
[2025-03-15 17:49] LABS: HCT 46.1 % (36.0-46.0); HGB 16.0 g/dL (11.2-15.7); MCH 31.4 pg (27.0-33.0); MCHC 34.7 % (32.0-36.0); MCV 91 fL (80-95); MPV 8.8 fL (8.0-11.0); Platelet Count 425 10^3/uL (130-400); RBC 5.09 10^6/uL (3.93-5.22); RDW 13.7 % (11.7-14.6); RDW-SD 45.7 fL; WBC 15.09 10^3/uL (4.4-10.8)
[2025-03-15] MEDS: Calcium Carbonate *TUMS* 500 MG CHEW 1000 MG PO (17:51)
[2025-03-15] MEDS: Pantoprazole 40 MG VIAL IVP (17:51)
[2025-03-15 18:01] LABS: Immature Grans % 0.0 %
[2025-03-15 18:02] LABS: Abs Immature Grans 0.00 10^3/uL (0.0-0.06); RBC Morphology Normal
[2025-03-15 18:07] LABS: Lipase 77 U/L (<53); Magnesium 1.7 mg/dL (1.6-2.6)
[2025-03-15 18:09] LABS: ALT 17 U/L (10-49); AST 16 U/L (<34); Albumin 4.5 g/dL (3.4-5.0); Alkaline Phosphatase 105 U/L (46-116); Anion Gap 8.3 mmol/L (3-11); BUN 11 mg/dL (9-23); Bilirubin, Total 0.20 mg/dL (0.2-1.2); CO2 26.7 mmol/L (20.0-31.0); Calcium 9.1 mg/dL (8.3-10.6); Chloride 105 mmol/L (98-107); Glucose 103 mg/dL (74-106); Potassium 3.6 mmol/L (3.5-5.1); Sodium 140 mmol/L (136-145); Total Protein 7.7 g/dL (5.7-8.2)
[2025-03-15 18:23] LABS: Troponin I < 3 ng/L (<35)
[2025-03-15] MEDS: Normal Saline - Diluent 50 ML VIAL IJ (19:00)
[2025-03-15] MEDS: Omnipaque 350 MG/ML 100 ML BTL IJ (19:01)
[2025-03-15] MEDS: Normal Saline Flush 10 ML SYR IVP (19:01)
--- NOTE | 2025-03-15 19:15 | DI.CT_ITS ---
Exam(s) CT THORAX ABD/PEL CTA EXAM: CT THORAX ABD/PEL CTA CLINICAL HISTORY: Chest pain radiating to back. TECHNIQUE: Imaging Protocol: Axial computed tomography images with coronal and sagittal reformatted images were created and reviewed CONTRAST MATERIAL: Intravenous: Omnipaque 350 Contrast volume:100 ml Oral: None COMPARISON: CT ABD PELVIS WITH CONTRAST from 09/04/2016 FINDINGS: CHEST: AORTA: The diameter of the ascending thoracic aorta is within normal limits. Diameter of the aortic arch and descending thoracic aorta are also within normal limits. However, there is a curvilinear filling defect in the anterior lumen of the proximal descending thoracic aorta concerning for intimal flap/dissection. This starts approximately 3 cm below the takeoff point of the left subclavian artery. The craniocaudal length of this intimal flap is 2 cm and there is no obstruction of flow. The diameter of the descending thoracic aorta is normal and there is also no evidence of abdominal aortic aneurysm nor significant atherosclerosis in the abdominal aorta. However, there is atherosclerotic involvement in the common iliac arteries with calcified plaque on the medial wall the right common iliac artery and prominent partially calcified plaque on the medial wall of the proximal left common carotid artery. There does not appear to be dissection at these levels. Also no aneurysmal dilatation of the iliac arteries. Common femoral arteries appear unremarkable as do the included proximal SFA arteries. LUNGS: No pulmonary infiltrates nor pleural effusions evident. No findings in trachea and mainstem bronchi.. MEDIASTINUM: There is no hilar nor mediastinal adenopathy. Partially visualized thyroid unremarkable. CARDIAC: Heart size is normal. There is no pericardial effusion. No significant coronary artery calcification is ABDOMEN: AORTA SEE ABOVE There is no ascites.. There are no ischemic appearing bowel loops. No bowel obstruction or free air. No abnormal fluid collections in the abdomen-pelvis LIVER: There are no focal hepatic lesions nor dilatation of intrahepatic ducts. GALLBLADDER/BILIARY: The gallbladder surgically absent. CBD diameter is upper normal. There mildly dilated ducts in the left hepatic lobe evident. PANCREAS: No evidence of pancreatic mass nor dilatation of the pancreatic duct. SPLEEN: Spleen is not enlarged. There are no intrasplenic lesions. Splenic and portal veins are patent. ADRENALS: There are no significant adrenal masses. KIDNEYS: No cysts evident. No calculi nor hydronephrosis. No solid renal masses. ABDOMINAL AORTA: See above LYMPH NODES: There is no retroperitoneal nor para-aortic adenopathy. No obvious mesenteric masses. ABDOMINAL WALL: No evidence of significant anterior abdominal wall hernia. GI: There is no evidence of bowel obstruction, free air, nor abscess. PELVIS: LYMPH NODES: There is no intrapelvic nor inguinal adenopathy. GI: No evidence of appendicitis.There is sigmoid diverticuli but no evidence of acute diverticulitis. URINARY BLADDER: No calculi nor masses evident REPRODUCTIVE: There are bilateral tubal ligation clips. Uterus and adnexal regions appear age-appropriate. No free fluid in the pelvis. OSSEOUS: No fractures. No significant osseous lesions. IMPRESSION: 1. There is a curvilinear filling defect in the anterior lumen of the proximal descending thoracic aorta which is concerning for early aortic dissection (type- B). The small flap starts 3 cm distal to the origin of the left subclavian artery and the craniocaudal length of the flap is presently 2 cm. There is no obstruction of flow at this time. There is no aneurysmal dilatation of the aorta. 2. There is significant atherosclerotic involvement of the common iliac arteries but without aneurysmal dilatation of these vessels. 3. Heart size is normal and there is no pericardial effusion.. 4. Other nonacute findings as above. Preliminary virtual Radiology report was reviewed RADIATION DOSE DELIVERED: 2,036.07mGy.cm Total DLP DATA REPOSITORY: All CT scans at this facility are submitted to the National Radiology Data Registry (NRDR) Dose Index Registry (DIR) with the [employer] (ACR). RADIATION OPTIMIZATION: All CT scans at this facility use at least one of these dose optimization techniques: automated exposure control; mA and/or kV adjustment per patient size (includes targeted exams where dose is matched to clinical indication); or iterative reconstruction.
--- NOTE | 2025-03-15 19:58 | DI.VRAD_ITS ---
PROCEDURE INFORMATION: Exam: CTA Chest With Contrast CTA Abdomen and Pelvis With Contrast Exam date and time: 03/15/2025 6:59 PM Age: 44 years old Clinical indication: Other: Chest pain radiating to back TECHNIQUE: Imaging protocol: Computed tomographic angiography of the chest with contrast. Exam focused on the arteries. Computed tomographic angiography of the abdomen and pelvis with contrast. Exam focused on the arteries. 3D rendering (Not supervised by radiologist): MIP and/or 3D reconstructed images were created by the technologist. Total images: 2257 Contrast material: OMNIPAQUE 350; Contrast volume: 100 ml; Contrast route: INTRAVENOUS (IV); COMPARISON: CR XR CHEST 2V PA LATERAL 08/01/2024 12:59 PM FINDINGS: VASCULATURE: Pulmonary arteries: No filling defect pulmonary arterial tree. Aorta: Curvilinear filling defect within the proximal descending thoracic aorta. Celiac and mesenteric arteries: No occlusion or significant stenosis. Renal arteries: No occlusion or significant stenosis. Right iliac arteries: No occlusion or significant stenosis. Left iliac arteries: Moderate stenosis origin left common iliac artery. CHEST: Lungs: Unremarkable. No consolidation. No masses. Pleural spaces: Unremarkable. No pneumothorax. No pleural effusion. Heart: Unremarkable. No cardiomegaly. No pericardial effusion. ABDOMEN AND PELVIS: Liver: Hepatic steatosis/hepatomegaly. Gallbladder and biliary ducts: Cholecystectomy. Pancreas: Unremarkable. No mass. No ductal dilation. Spleen: Unremarkable. No splenomegaly. Adrenal glands: Unremarkable. No mass. Kidneys and ureters: Unremarkable. No solid mass. No hydronephrosis. Stomach and bowel: Unremarkable. No obstruction. No mucosal thickening. Appendix: No evidence of appendicitis. Intraperitoneal space: Unremarkable. No free air. No significant fluid collection. Urinary bladder: Unremarkable. No mass. Reproductive: Bilateral tubal ligation clips. Lymph nodes: Unremarkable. No enlarged lymph nodes. Bones/joints: Unremarkable. No acute fracture. Soft tissues: Unremarkable. IMPRESSION: 1. Small curvilinear filling defect within the proximal descending thoracic aorta raising the concern for a small aortic intimal flap from early dissection. 2. THIS REPORT CONTAINS FINDINGS THAT MAY BE CRITICAL TO PATIENT CARE. The findings were verbally communicated via telephone conference with Daren Boateng at 7:56 PM EST on 03/15/2025. The findings were acknowledged and understood. Dictated and Authenticated by: Edgardo Tamayo MD. Orderin Tasneem Mercedes MD
[2025-03-15 20:21] LABS: Troponin I < 3 ng/L (<35)
[2025-03-15] MEDS: LORazepam 20 MG/10 ML VIAL IVP (20:39)
--- NOTE | 2025-03-15 20:53 | ED.GENADUL_ITS ---
Discharge Plan Disposition Patient Disposition: Transfer-Acute Inpatient Care Specific Acute Inpt Facility: [facility] Discharge Details Clinical Impression: Aortic dissection, thoracic Primary Care Provider: Becky Jenkins ED Provider: Daren Boateng Home Meds and New Rx's Prescriptions: No Action acetaminophen 500 mg capsule 1,500 mg PO BID PRN gabapentin 800 mg tablet 800 mg PO TID Qty: 270 3RF penicillin V potassium 500 mg tablet 500 mg PO QID Qty: 40 0RF melatonin 10 mg capsule 10 mg PO HS PRN albuterol sulfate 1.25 mg/3 mL solution for nebulization 1.25 mg Inhalation Q6H PRN (Reason: shortness of breath or wheezing) Qty: 90 4RF albuterol sulfate [ProAir HFA] 90 mcg/actuation HFA aerosol inhaler 2 puff Inhalation Q6H PRN (Reason: shortness of breath or wheezing) Qty: 18 4RF naproxen 500 mg tablet 500 mg PO BID PRN (Reason: pain) Qty: 60 0RF Discharge Instructions Instructions: Aortic dissection HPI General Date/Time Provider Initiated Documentation: 03/15/25 17:26 . HPI Narrative: MDM/Narrative: 44-year-old female with past medical history of asthma, hypertension, chronic cigarette smoker, presents for evaluation of chest pain rating to the back rated severe beginning suddenly today after several days of nausea and vomiting. Patient's vitals notable for mild hypertension. Given patient's presentation I am concerned for possible acute aortic syndrome, will also consider ACS, without tachycardia in the suspect PE is unlikely. Will obtain screening labs and CTA of the chest abdomen pelvis. ED course: CT images reviewed with virtual radiology with concern for possible early aortic injury and intimal flap. [facility] paged [phone] Case discussed with [facility] who notes that vascular surgery has notified them that a another active aortic dissection is developed in their emergency department and will call once they are able. [phone] Case discussed with [facility] vascular surgery fellow, recommends transfer to the emergency department under the care of Dr. Tobias vascular surgery for further care. They are in agreement with continued esmolol and nicardipine for heart rate control below or between 60 to 70 bpm, and blood pressure control below 120/80 Clinical impression: Aortic dissection Leukocytosis Chest pain Back pain Disposition: Transfer to [facility] HPI: 44-year-old female presents for evaluation of severe 10 out of 10 chest pain radiating to the back, described as a crushing of her chest, which began approximately 3 hours prior to arrival after the patient had an episode of vomiting. Denies any associated trauma, fever, chills or any other new or concerning symptoms. ROS: Negative besides as mentioned above Exam: Gen: A&O, appears in acute painful distress, tearful HEENT: NCAT, EOMI, not icteric. External ears normal. No rhinorrhea. Moist mucous membranes. Neck: Supple, full range of motion, no observable masses, No meningeal sign. Lungs: No Respiratory distress. CV: RRR, no edema. Abdomen: Soft, nondistended, No rebound tenderness. MSK: No joint swelling, no redness. Skin: No rashes, petechiae, lesions. Normal color per patient. Neuro: Normal Gait, Grossly intact. Psych: Appropriate for situation. Rhythm: NSR Rate: 71 [place]: Normal axis Intervals: Normal intervals Other findings: No acute ST segment or T wave changes to suggest acute ischemia. Labs: Laboratory Tests Range/Units 03/15/25 03/15/25 03/15/25 17:37 19:27 20:59 WBC (4.4-10.8) 10^3/uL 15.09 H RBC (3.93-5.22) 10^6/uL 5.09 Hgb (11.2-15.7) g/dL 16.0 H Hct (36.0-46.0) % 46.1 H MCV (80-95) fL 91 MCH (27.0-33.0) pg 31.4 MCHC (32.0-36.0) % 34.7 RDW (11.7-14.6) % 13.7 Plt Count (130-400) 10^3/uL 425 H MPV (8.0-11.0) fL 8.8 Immature Gran % % 0.0 Neutrophils % % 48.0 Lymphocytes % % 40.0 Atypical Lymphs % % 1 Monocytes % % 9.0 Eosinophils % % 2.0 Basophils % % 0.0 Nucleated RBC % (0.0-0.3) % 0.0 Absolute Neutrophils (1.2-6.7) 10^3/uL 7.24 H Absolute Lymphocytes (1.2-3.4) 10^3/uL 6.19 H Absolute Monocytes (0.1-0.8) 10^3/uL 1.36 H Absolute Eosinophils (0.0-0.7) 10^3/uL 0.30 Absolute Basophils (0.0-0.2) 10^3/uL 0.00 RBC Morphology Normal VBG pH (7.31-7.41) 7.39 VBG pCO2 (41-51) mmHg 46 VBG pO2 mmHg 57 VBG HCO3 (23-28) mmol/L 28 VBG Total CO2 (24-29) mmol/L 24 VBG O2 Saturation % 93 VBG Base Excess (-2-3) mmol/L 3 VBG Lactate (<or=2.0) mmol/L 1.3 Sodium (136-145) mmol/L 140 Potassium (3.5-5.1) mmol/L 3.6 Chloride (98-107) mmol/L 105 Carbon Dioxide (20.0-31.0) mmol/L 26.7 Anion Gap (3-11) mmol/L 8.3 BUN (9-23) mg/dL 11 Creatinine (0.55-1.02) mg/dL 0.8 Est GFR (CKD-EPI 2020) (mL/min/1.73m2) 73.10 Glucose (74-106) mg/dL 103 Calcium (8.3-10.6) mg/dL 9.1 Magnesium (1.6-2.6) mg/dL 1.7 Total Bilirubin (0.2-1.2) mg/dL 0.20 AST (<34) U/L 16 ALT (10-49) U/L 17 Alkaline Phosphatase (46-116) U/L 105 Troponin I (<35) ng/L < 3 < 3 NT-Pro-B Natriuret Pep (<300) pg/mL 58 Total Protein (5.7-8.2) g/dL 7.7 Albumin (3.4-5.0) g/dL 4.5 Lipase (<53) U/L 77 H Urine Color (Yellow) Yellow Urine Clarity (Clear) Clear Urine pH (5-8) 6.0 Ur Specific [place] (1.005-1.025) 1.010 Urine Protein (Neg-Trace) mg/dL Negative Urine Ketones (Negative) mg/dL Negative Urine Blood (Negative) Negative Urine Nitrite (Negative) Negative Urine Bilirubin (Negative) Negative Urine Urobilinogen (Up to 0.2) mg/dL 0.2 Ur Leukocyte Esterase (Negative) Negative Urine Glucose (Negative) mg/dL Negative PROCEDURE INFORMATION: Exam: CTA Chest With Contrast CTA Abdomen and Pelvis With Contrast Exam date and time: 03/15/2025 6:59 PM Age: 44 years old Clinical indication: Other: Chest pain radiating to back TECHNIQUE: Imaging protocol: Computed tomographic angiography of the chest with contrast. Exam focused on the arteries. Computed tomographic angiography of the abdomen and pelvis with contrast. Exam focused on the arteries. 3D rendering (Not supervised by radiologist): MIP and/or 3D reconstructed images were created by the technologist. Total images: 2257 Contrast material: OMNIPAQUE 350; Contrast volume: 100 ml; Contrast route: INTRAVENOUS (IV); COMPARISON: CR XR CHEST 2V PA LATERAL 08/01/2024 12:59 PM FINDINGS: VASCULATURE: Pulmonary arteries: No filling defect pulmonary arterial tree. Aorta: Curvilinear filling defect within the proximal descending thoracic aorta. Celiac and mesenteric arteries: No occlusion or significant stenosis. Renal arteries: No occlusion or significant stenosis. Right iliac arteries: No occlusion or significant stenosis. Left iliac arteries: Moderate stenosis origin left common iliac artery. CHEST: DANIAL BLOUNTN Preliminary Radiology Report DISTRIBUTION ACCOUNTING CLERK (QA) DISCREPANCY? If there is a discrepancy between the preliminary and final interpretation, please notify [facility] via [email or web address]. If you do not have access to our QA portal, call our QA team at [phone] CONFIDENTIALITY STATEMENT This report is intended only for the use of the referring physician, and only in accordance with law, If you received this in error, call [phone] Page 2 of 2 Lungs: Unremarkable. No consolidation. No masses. Pleural spaces: Unremarkable. No pneumothorax. No pleural effusion. Heart: Unremarkable. No cardiomegaly. No pericardial effusion. ABDOMEN AND PELVIS: Liver: Hepatic steatosis/hepatomegaly. Gallbladder and biliary ducts: Cholecystectomy. Pancreas: Unremarkable. No mass. No ductal dilation. Spleen: Unremarkable. No splenomegaly. Adrenal glands: Unremarkable. No mass. Kidneys and ureters: Unremarkable. No solid mass. No hydronephrosis. Stomach and bowel: Unremarkable. No obstruction. No mucosal thickening. Appendix: No evidence of appendicitis. Intraperitoneal space: Unremarkable. No free air. No significant fluid collection. Urinary bladder: Unremarkable. No mass. Reproductive: Bilateral tubal ligation clips. Lymph nodes: Unremarkable. No enlarged lymph nodes. Bones/joints: Unremarkable. No acute fracture. Soft tissues: Unremarkable. IMPRESSION: 1. Small curvilinear filling defect within the proximal descending thoracic aorta raising the concern for a small aortic intimal flap from early dissection. 2. THIS REPORT CONTAINS FINDINGS THAT MAY BE CRITICAL TO PATIENT CARE. The findings were verbally communicated via telephone conference with Daren Boateng at 7:56 PM EST on 03/15/2025. The findings were acknowledged and understood. Thank you for allowing us to participate in the care of your patient. Dictated and Authenticated by: Edgardo Tamayo MD 03/15/2025 7:57 PM Eastern Time ([place] & [place]): Related Data Home Medications Medication Instructions Recorded Confirmed melatonin 10 mg capsule 10 mg PO HS PRN 09/23/20 albuterol sulfate 1.25 mg/3 mL 1.25 mg (3 mL) inhalati on Q6H PRN 12/17/22 03/15/25 solution for nebulization shortness of breath or wheez ing #90 mL albuterol sulfate 90 mcg/actuation 2 puff inhalation Q 6H PRN 04/27/23 03/15/25 aerosol inhaler (ProAir HFA) shortness of breath or wh eezing #18 grams naproxen 500 mg tablet 500 mg PO BID PRN pain #60 t abs 03/05/24 03/15/25 acetaminophen 500 mg capsule 1,500 mg PO BID PRN 07/1103/15/25 gabapentin 800 mg tablet 800 mg PO TID #270 tabs 06/3003/15/25 penicillin V potassium 500 mg 500 mg PO QID #40 tabs 1 05/15/24 03/15/25 tablet Previous Rx's Medication Instructions Recorded albuterol sulfate 1.25 mg/3 mL 1.25 mg (3 mL) inhalati on Q6H PRN 12/17/22 solution for nebulization shortness of breath or wheez ing #90 mL albuterol sulfate 90 mcg/actuation 2 puff inhalation Q 6H PRN 04/27/23 aerosol inhaler (ProAir HFA) shortness of breath or wh eezing #18 grams naproxen 500 mg tablet 500 mg PO BID PRN pain #60 t abs 03/05/24 gabapentin 800 mg tablet 800 mg PO TID #270 tabs 06/30 06/26 penicillin V potassium 500 mg 500 mg PO QID #40 tabs 1 05/15/24 tablet Allergies Allergy/AdvReac Type Severity Reaction Status Date / Time adhesive Allergy Mild Skin Rash Verified 03/15/25 17:33 divalproex sodium (From Allergy Mild Skin Rash Verified 03/15/25 17:33 Depakote) topiramate Allergy Mild Skin Rash Verified 03/15/25 17:33 varenicline tartrate (From Allergy Mild Skin Rash Verified 03/15/25 17:33 Chantix) Fish Containing Products Allergy Unknown Other (See Verified 03/15/25 17:33 Comment) Iodinated Contrast Media Allergy Unknown Unknown Unverified 03/15/25 17:33 shellfish derived Allergy Unknown Other (See Verified 03/15/25 17:33 Comment) silver Allergy Unknown Other (See Unverified 03/15/25 17:33 Comment) tramadol AdvReac Intermediate Nausea and Verified 03/15/25 17:33 vomiting venlafaxine AdvReac Intermediate Diarrhea Verified 03/15/25 17:33 and increased headaches oxycodone AdvReac Mild nausea Verified 03/15/25 17:33 General Stated Complaint: Chest Pain RED: 3 Course Vital Signs Vital signs: Vital Signs Temperature 36.6 C 03/15/25 17:27 Pulse 70 03/15/25 17:27 Respiratory Rate 20 03/15/25 17:27 Blood Pressure 150/92 H 03/15/25 17:27 Pulse Oximetry 97 03/15/25 17:27 Temperature 36.6 C 03/15/25 17:27 Pulse 65 03/15/25 19:23 Pulse 68 03/15/25 19:23 Respiratory Rate 14 03/15/25 19:23 Respiratory Effort Normal 03/15/25 17:40 Respiratory Depth Normal 03/15/25 17:40 Blood Pressure 130/66 03/15/25 19:23 Blood Pressure Mean 89 03/15/25 19:23 Blood Pressure Position Sitting 03/15/25 17:27 Pulse Oximetry 97 03/15/25 19:23 Pain Level 10 03/15/25 17:40 Comment notified 03/15/25 18:51 Lab/Test Results Lab/Test Results: Laboratory Tests Range/Units 03/15/25 03/15/25 17:37 19:27 WBC (4.4-10.8) 10^3/uL 15.09 H RBC (3.93-5.22) 10^6/uL 5.09 Hgb (11.2-15.7) g/dL 16.0 H Hct (36.0-46.0) % 46.1 H MCV (80-95) fL 91 MCH (27.0-33.0) pg 31.4 MCHC (32.0-36.0) % 34.7 RDW (11.7-14.6) % 13.7 Plt Count (130-400) 10^3/uL 425 H MPV (8.0-11.0) fL 8.8 Immature Gran % % 0.0 Neutrophils % % 48.0 Lymphocytes % % 40.0 Atypical Lymphs % % 1 Monocytes % % 9.0 Eosinophils % % 2.0 Basophils % % 0.0 Nucleated RBC % (0.0-0.3) % 0.0 Absolute Neutrophils (1.2-6.7) 10^3/uL 7.24 H Absolute Lymphocytes (1.2-3.4) 10^3/uL 6.19 H Absolute Monocytes (0.1-0.8) 10^3/uL 1.36 H Absolute Eosinophils (0.0-0.7) 10^3/uL 0.30 Absolute Basophils (0.0-0.2) 10^3/uL 0.00 RBC Morphology Normal VBG pH (7.31-7.41) 7.39 VBG pCO2 (41-51) mmHg 46 VBG pO2 mmHg 57 VBG HCO3 (23-28) mmol/L 28 VBG Total CO2 (24-29) mmol/L 24 VBG O2 Saturation % 93 VBG Base Excess (-2-3) mmol/L 3 VBG Lactate (<or=2.0) mmol/L 1.3 Sodium (136-145) mmol/L 140 Potassium (3.5-5.1) mmol/L 3.6 Chloride (98-107) mmol/L 105 Carbon Dioxide (20.0-31.0) mmol/L 26.7 Anion Gap (3-11) mmol/L 8.3 BUN (9-23) mg/dL 11 Creatinine (0.55-1.02) mg/dL 0.8 Est GFR (CKD-EPI 2020) (mL/min/1.73m2) 73.10 Glucose (74-106) mg/dL 103 Calcium (8.3-10.6) mg/dL 9.1 Magnesium (1.6-2.6) mg/dL 1.7 Total Bilirubin (0.2-1.2) mg/dL 0.20 AST (<34) U/L 16 ALT (10-49) U/L 17 Alkaline Phosphatase (46-116) U/L 105 Troponin I (<35) ng/L < 3 < 3 NT-Pro-B Natriuret Pep (<300) pg/mL 58 Total Protein (5.7-8.2) g/dL 7.7 Albumin (3.4-5.0) g/dL 4.5 Lipase (<53) U/L 77 H Critical Care Time Critical Care Time Critical Care Time: Yes Total Critical Care Time: 35 Attestation: Upon my evaluation, this patient had a high probability of imminent or life- threatening deterioration due to aortic dissection, which required my direct attention, intervention, and personal management. I have personally provided 35 minutes of critical care time exclusive of time spent on separately billable procedures. Time includes review of laboratory data, radiology results, discussion with consultants, and monitoring for potential decompensation. Interventions were performed as documented above, including monitoring of critical vital signs, ordering critical medications from bedside, and re-assessing effectiveness, repeating critical exam findings, and reviewing patients' chart. PFSH All Active Problems (Updated 03/15/25 @ 21:51 by Daren Boateng MD) Aortic dissection, thoracic (Acute) Degenerative joint disease (DJD) of lumbar spine (Acute) DJD (degenerative joint disease) of cervical spine (Acute) Bipolar disorder (Chronic) Major depressive disorder, recurrent (Chronic) Generalized anxiety disorder (Chronic) PTSD (post-traumatic stress disorder) (Chronic) Substance use disorder (Chronic) Insomnia (Chronic) Chronic pain syndrome (Chronic) Cervical spondylosis (Chronic) Fibromyalgia (Chronic) Chronic low back pain (Chronic) Asthma (Chronic) Obesity (Chronic) Hyperlipidemia (Chronic) GERD (gastroesophageal reflux disease) (Chronic) IBS (irritable bowel syndrome) (Chronic) Cigarette smoker (Chronic) Genital herpes (Chronic) Rosacea (Chronic) Dysmenorrhea (Chronic) Medical History (Updated 03/15/25 @ 21:51 by Daren Boateng MD) Numbness of arm Low back pain Chronic cough Anxiety Depression Pelvic prolapse Nicotine dependence Hypothyroidism Back pain Neck pain Lumbar spondylosis Soft tissue injury of multiple sites of lower extremity Suicide attempt Prediabetes Surgical History S/P tubal ligation H/O LEEP S/P cholecystectomy S/P colonoscopy (01/12/13) History of esophagogastroduodenoscopy (EGD) (01/12/13) Family History Mother , At 66 from cirrhosis Diabetes Essential hypertension Depression Heart disease Asthma Liver disease Father No problems noted. Brother No problems noted. Brother Lung cancer Sister , At 32 No problems noted. Sister DJD (degenerative joint disease) Asthma Sister No problems noted. Sister No problems noted. Son No problems noted. Daughter No problems noted. Maternal Grandfather No problems noted. Maternal Grandmother Breast cancer Paternal Grandfather Leukemia Paternal Grandmother Pancreatic cancer Social History Smoking/Tobacco Use Status: Current every day Tobacco Type: cigarettes Tobacco: How many years used: 26 Quit status: considering quitting Smoking risk assessment performed?: Yes Alcohol Intake: current Alcohol Intake frequency: holidays/special occasions only Drug use: Daily Substance use type: marijuana Details: last used 04/19/22 Household members: spouse and other Details: spouse Brandan Number of Children: 2 current occupation: Disabled Pets and animals: Yes (3 dogs) What is your relationship status?: Panel score (0-1 are the most socially isolated patients): 1 What type of physical activity do you participate in: walking and independent ambulation Duration: 15-30 minutes/day Frequency: 3-4 times per week Seatbelt use: always Do you feel safe at home: Yes Do you feel safe in your relationship?: Yes Female Reproductive History Menstrual control method: permanent sterilization History History 5 Para Hx # Term Pregnancies 2 Multiple births Hx # Pregnancies Ectopic pregnancies AB induced Hx Number of Living Children 2 AB spontaneous
[2025-03-15 21:08] LABS: Glucose Negative (Negative)
[2025-03-15] MEDS: ESMOLOL 2,500 MG/250 ML BAG 16.329 MG IV (21:18)
[2025-03-15] MEDS: niCARdipine 25 MG in Normal Saline 240 ML 50 MG IV (21:52)
--- NOTE | 2025-03-17 07:02 | NUR.NOTE ---
Accessed Pt chart to notify [place] of Pts address. Alexy Blum was checking to see if she was the patient he had to deal with last night. She was not and chart was closed.
== END 2025-03-15 22:33 | disposition left against medical advice (07) ==
PROVIDERS: Emergency Provider General Practice; PCP Nurse Practitioner Family
DX: I71.019 Dissection of thoracic aorta, unspecified (principal); Z72.0 Tobacco use; Z53.29 Procedure and treatment not carried out because of patient's decision for other reasons
CPT/HCPCS: 36415; 71275; 80053; 81025; 82805; 83690; 93005; 96365; 96375; 99291; 74174; 81003; 83605; 83735; 83880; 84484; 85025; 93010; J1790; J1805; J2060; J2270; J2404; J2470; J3490